=== PATIENT | male | born 1955 | race Caucasian/White ===

== ENCOUNTER → 2016-02-24 | Outpatient (CLI) | payer BC ==
[~2016-02-24] VITALS: Ht 190.5 cm; Wt 107.7 kg
[~2016-02-24] MED LIST: ACETAMINOPHEN325 M1 PO; ADULT LOW DOSE81 MG PO; AMITRIPTYLINE H50 M2 PO; ASPIR 8181 MG PO; ASPIRIN EC325 M1 PO; ASPIRIN EC81 M1 PO; ASPIRIN PO; ASPIRIN325 PO; ATIVAN1 MG PO; ATORVASTATIN CA40 MG PO; AVELOX 400 MG400 M1 PO; BAYER CHEWABLE81 MG PO; BENADRYL ALLERG25 MG PO; BUSPAR15 MG PO; CARVEDILOL12.5 MG PO; CARVEDILOL25 MG PO; CARVEDILOL3.125 MG PO; CARVEDILOL6.25 MG PO; COLACE100 MG PO; COREG 25 MG PO; COREG3.125 MG PO; COZAAR 25 MG TA25 M1 PO; DESYREL100 MG PO; DIAZEPAM 5 MG5 M1 PO; DILAUDID 4 MG TA4 M1 PO; EFFEXOR XR75 MG PO; EFFIENT10 MG PO; EMBEDA ER 30-11 EACH PO; EMBEDA ER 50-21 EACH PO; EMBEDA PO; Effient PO; FENOFIBRATE160 MG PO; FLOMAX0.4 MG PO; GEMFIBROZIL 60600 MG PO; GEMFIBROZIL PO; HUMALOG100 UNIT/1; HUMALOG100 UNIT/1 SQ; HUMALOG100 UNIT/1 SUBQ; HYDROCODON-ACE1 EAC2 PO; HYDROCODON-ACE1 EAC5 PO; HYDROCODON-ACE1 EAC7; HYDROCODON-ACE1 EAC7 PO; IBUPROFEN 600600 M1 PO; IMDUR 30 MG TAB30 M1 PO; IMDUR 60 MG TAB60 M1 PO; IMDUR 60 MG TAB60 MG PO; ISOSORBIDE DINI30 MG PO; ISOSORBIDE MONO10 MG PO; ISOSORBIDE MONO60 M1 PO; LEVEMIR SQ; LEVEMIR SUBQ; LEVOTHYROXIN0.025 MG PO; LEVOTHYROXINE0.2 M1 PO; LEVOXYL300 MCG PO; LEVOXYL75 MCG PO; LEXAPRO 10 MG T10 MG PO; LEXAPRO20 MG PO; LIORESAL 10 MG10 MG PO; LIPITOR40 MG PO; LIPITOR80 MG PO; LISINOPRIL 5 MG PO; LISINOPRIL10 MG PO; LISINOPRIL2.5 MG PO; LISINOPRIL5 MG PO; LOPID600 MG PO; LOPRESSOR 50 MG50 M1 PO; LOPRESSOR25 PO; LOPRESSOR50 PO; LOTRISONE CREAM15 GM; LYRICA 75 MG CA75 MG PO; METHADONE HCL5 MG PO; METOPROLOL SUCC25 M1 PO; METOPROLOL TART25 MG PO; MIDODRINE HCL 55 M1; MIDODRINE HCL 55 M1 PO; MINIPRIN81 MG PO; MONOKET20 MG PO; NEURONTIN 300300 M1 PO; NITROSTAT0.4 MG SUBLING; NORCO 5-325 TA1 EACH PO; NORCO 7.5-3251 EACH PO; NORTRIPTYLINE H50 M3 PO; NOVOLOG100 UNIT/1; NOVOLOG100 UNIT/1 SUBQ; OMEPRAZOLE 20 M20 M1 PO; OMEPRAZOLE20 M2 PO; OPANA ER30 MG PO; PACERONE 200 M200 M1 PO; PEPCID20 MG PO; PERCOCET 10-321 EACH PO; PERCOCET PO; PLAVIX 75 MG TA75 MG PO; PROSCAR 5MG TABL5 MG PO; QUETIAPINE FUM100 MG PO; RANEXA 500 MG500 M1 PO; RANEXA1000 MG PO; RANITIDINE 150150 M1 PO; SEROQUEL 100 M100 M1 PO; SEROQUEL 50 MG50 M1 PO; SEROQUEL 50 MG50 MG PO; SEROQUEL XR150 M1 PO; SIMVASTATIN20 MG PO; SIMVASTATIN40 MG PO; STOOL SOFTENER50 MG PO; SYNTHROID PO; SYNTHROID200 MCG PO; SYNTHROID300 MCG PO; TIROSINT75 MCG PO; TOPROL XL25 MG PO; TRAZODONE 150150 M1 PO; VENLAFAXIN75 MG/1 T1 PO; XARELTO10 MG; XARELTO10 MG PO; XARELTO15 MG PO; XARELTO20 MG PO; ZETIA10 MG PO; ZIAGEN 300 MG300 MG; ZOCOR 20 MG TAB20 M1 PO; [UNRECOGNIZED DRUG - CODE] PO
--- NOTE | ~2016-02-24 | HPC ---
[facility] [address] [place] [address] PAIN MANAGEMENT CONSULTATION Name: JAUN SOLOMON Room #: REG [facility] M..#: [id number] Admission: 02/24/16 Attend Phys: Torres Light MD Discharge: Date of : 53 Report #: [id number] THIS REPORT FOR: //name// CC: Eloy Light DATE OF SERVICE: 02/24/2016 Followup visit for chronic intractable low back pain and neck pain status post Chiari malformation decompression. History of severe coronary artery disease. The patient returns to pain clinic for renewal of his medication. He continues to do reasonably well on his current doses of medication, which is Embeda 30-1.2. He does, however, report that his pain intensity is as high as a 6 many days and that interferes with his activities of daily living and he is unable to function as well. He has significant orthopedic and spinal issues. He has had 2 lumbar surgeries for chronic back pain and has had neck surgery for Chiari malformation with extensive decompression. In addition, he has had shoulder surgeries bilaterally, two separate surgeries on the right. He had an anterior cervical diskectomy and fusion prior to his Chiari surgery. In addition to all of this, he has severe coronary artery disease, suffering four myocardial infarctions. He tells me he has 13 stent. He is at risk for additional cardiac issues and has been avoiding the use of anti-inflammatory drugs other than a single aspirin per day. He is an ideal candidate for the use of opioids in the place of other medications, which probably would have a higher risk for him and Embeda taken once a day with its abuse determinant, seems like an ideal drug. I have agreed to increase his dose from 30 mg a day to 50 mg a day taken once in the morning. He has no significant side effects and the medication has recovered by his insurance. MEDICATIONS: Reviewed include morphine and sulfate in the form of Embeda 30-1.2 once daily, ____, amiodarone, Effient, Proamatine, Proscar, aspirin, omeprazole, Xarelto, ____, Lyrica, lorazepam, Venlafaxine, levothyroxine, insulin and nitroglycerine. PHYSICAL EXAMINATION: GENERAL: He is dressed all in camo. He is pleasant, alert and oriented, shows no signs of overmedication anxiety or depression. VITAL SIGNS: Blood pressure 131/77, heart rate 79 and BMI is 29.7. EXTREMITIES: Range of motion of the cervical spine is limited due to previous [facility] [address] [place] [address] PAIN MANAGEMENT CONSULTATION Name: JAUN SOLOMON Room #: REG [facility].#: [id number] Admission: 02/24/16 Attend Phys: Torres Light MD Discharge: Date of : 53 Report #: [id number] surgery, tenderness around the scar is noted. Mild crepitus is noted in the neck. CHEST: Clear. CARDIAC: Rhythm is regular. MUSCULOSKELETAL: Examination of the low back reveals scar from previous surgery. He has tenderness across his scar and limited range of motion, flexion and extension. He denies leg pain at this time, but does have numbness into the feet bilaterally, possibly secondary to neuropathy. IMPRESSION: 1. Chronic cervical and lumbar pain related to spondylosis, post-laminectomy syndrome. 2. Status post anterior cervical diskectomy and fusion and status post Chiari malformation decompression. 3. Coronary artery disease. 4. Hypertension. 5. Osteoarthritis. 6. Insulin-dependent diabetes. 7. Management of high risk medication. PLAN: Under terms of our opioid agreement, I have agreed to increase his Embeda to 50 mg - 2.0 once daily, and a followup visit scheduled in 3 months. <ELECTRONICALLY SIGNED> By: Torres Light MD 02/25/16 1329 1545 [id number] Torres Light MD /nt
[2016-02-24 10:31] VITALS: BP 131/77
== END | disposition home or self-care (01) ==
LOC: PAIN 02-02 10:50
DX: G89.29 Other chronic pain (principal); M96.1 Postlaminectomy syndrome, not elsewhere classified; M47.812 Spondylosis without myelopathy or radiculopathy, cervical region; I25.10 Atherosclerotic heart disease of native coronary artery without angina pectoris; E11.65 Type 2 diabetes mellitus with hyperglycemia; E78.5 Hyperlipidemia, unspecified; E03.9 Hypothyroidism, unspecified; I10 Essential (primary) hypertension; M19.90 Unspecified osteoarthritis, unspecified site; Z79.4 Long term (current) use of insulin; Z98.890 Other specified postprocedural states

== ENCOUNTER → 2016-06-22 | Outpatient (CLI) | payer BC ==
[~2016-06-22] VITALS: Ht 190.5 cm; Wt 107.5 kg
[~2016-06-22] MED LIST changes: +EMBEDA ER 80-31 EACH PO
--- NOTE | ~2016-06-22 | HPC ---
[facility] [place] [address] [place] [address] PAIN MANAGEMENT CONSULTATION Name: JAUN SOLOMON Room #: REG [facility] M.R.#: [id number] Admission: 06/22/16 Attend Phys: Torres Light MD Discharge: Date of : 53 Report #: [id number] THIS REPORT FOR: //name// CC: JUAN DIEGO Light DATE OF SERVICE: 06/22/2016 Followup visit for chronic pain. The patient returns to pain clinic today with complaints of pain in his low back and neck, status post Chiari malformation. He is currently on Embeda 50 mg daily to cover by his Medicaid. He does not feel that the dose is adequate and I have after some discussion agreed to increase his dose to Embeda 80/3.2. This is an abuse formulation and he is under the CDC guideline. He has been opioid tolerant for some years. Today, he reports that his pain is an 8/10. He has pain every day, mostly in his neck, shoulders and back, radiates down into his legs. Describes numbness, tingling and aching sensation into his arms. Comorbidities include severe coronary artery disease. He has history of hypertension, palpitation, shortness of breath. He is noted also loss of appetite, change in bowel movement with some frequent diarrhea occasionally, with some constipation intermittently. He has a history of kidney stones as well. PHYSICAL EXAMINATION: GENERAL: He is pleasant, alert and oriented. VITAL SIGNS: Blood pressure is 128/65, heart rate 73, BMI is 29.6. MUSCULOSKELETAL: He has limited range of motion of the cervical spine and tenderness across the occiput. He has pain that radiates down into the trapezius. He has difficulty with all range of motion of his neck. Low back is also tender and he has positive straight leg raising suggesting some radicular symptoms into each leg. IMPRESSION: 1. Chronic low back pain with radiculopathy. 2. Chronic cervicalgia status post laminectomy for Chiari malformation. 3. Severe coronary artery disease. 4. Hypertension. 5. Osteoarthritis. 6. Insulin-dependent diabetes. 7. Management of high risk medication. [facility] [address] [place] [address] PAIN MANAGEMENT CONSULTATION Name: JAUN SOLOMON [id number] Admission: 06/22/16 Attend Phys: Torres Light MD Discharge: Date of : 53 Report #: [id number] PLAN: I have renewed Embeda 80 mg, this is a 60% increase in his daily pain medication, that should be helpful. Plan to follow up in the pain clinic for him in 3 months. By: [id number] Torres Light MD /nt
[2016-06-22 10:17] VITALS: BP 128/65
== END | disposition home or self-care (01) ==
LOC: PAIN 07:25
DX: M54.16 Radiculopathy, lumbar region (principal); M54.2 Cervicalgia; G89.29 Other chronic pain; E11.65 Type 2 diabetes mellitus with hyperglycemia; I10 Essential (primary) hypertension; I25.10 Atherosclerotic heart disease of native coronary artery without angina pectoris; M19.90 Unspecified osteoarthritis, unspecified site; F11.20 Opioid dependence, uncomplicated; E11.69 Type 2 diabetes mellitus with other specified complication; E03.9 Hypothyroidism, unspecified; I73.9 Peripheral vascular disease, unspecified; E78.5 Hyperlipidemia, unspecified; Z79.4 Long term (current) use of insulin

== ENCOUNTER → 2016-09-21 | Outpatient (CLI) | payer BC ==
[~2016-09-21] VITALS: Ht 190.5 cm; Wt 98.4 kg
[~2016-09-21] MED LIST changes: +TRAZODONE HCL100 MG PO
--- NOTE | ~2016-09-21 | HPC ---
[facility] [place] [address] PAIN MANAGEMENT CONSULTATION Name: JAUN SOLOMON Room #: REG [facility].#: [id number] Admission: 09/21/16 Attend Phys: Torres Light MD Discharge: Date of : 53 Report #: [id number] THIS REPORT FOR: //name// CC: Eloy Light DATE OF SERVICE: 09/21/2016 Followup visit for chronic low back pain and radiculopathy as well as chronic cervicalgia. The patient is in the pain clinic today in followup. I have provided him with Embeda under terms of our opioid agreement. He also complains of neuropathic pain and today we discussed the possibility of additional neuropathic pain medication. He has never had a trial of Lyrica. His pain score is 6/10. He describes sharp, aching pain, numbness and tingling into his neck and shoulders, low back, left leg, left arm, both hands, bilateral feet. Recently went to the dentist, had some teeth pulled and the dentist provided him with hydrocodone 7.5/325, 24 tablets. He did notify our clinic and asked if he could utilize those. I have agreed to allow him to use those medications for this breakthrough episode and his notification in the clinic is consistent with our agreement. He has a number of other issues including hypertension, insulin-dependent diabetes, coronary artery disease. He follows with his primary care physician closely for these issues. PHYSICAL EXAMINATION: The patient is pleasant, alert and oriented, without signs of overmedication, depression or anxiety. Pain score is a 6 today. He has mild tenderness in his neck with decreased range of motion. He has weakness in his upper extremities. Sensation is diminished in both arms. He has pain across his low back and positive straight leg raising, which is consistent with radiculopathy. He has decreased sensation with burning sensations in his feet, which may be related to his diabetes with neuropathy. IMPRESSION: 1. Chronic low back pain with radiculopathy. 2. Chronic cervicalgia status post laminectomy . 3. Insulin-dependent diabetes, now with some evidence of diabetic neuropathy. 4. Osteoarthritis. 5. Hypertension. 6. Coronary artery disease. 7. Management of high risk medication. [facility] [address] [place] [address] PAIN MANAGEMENT CONSULTATION Name: JAUN SOLOMON Room #: REG [facility].#: [id number] Admission: 09/21/16 Attend Phys: Torres Light MD Discharge: Date of : 53 Report #: [id number] PLAN: 1. I renewed his Embeda 80 mg per day. This is a once a day dose. 2. Begin Lyrica 75 mg 1-2 tablets b.i.d. He will titrate his dose as instructed today and given him written instructions. Followup visit planned in 3 months. By: [id number] Torres Light MD /nt
[2016-09-21 10:49] VITALS: BP 94/63
== END | disposition home or self-care (01) ==
LOC: PAIN 07:18
DX: M54.10 Radiculopathy, site unspecified (principal); I10 Essential (primary) hypertension; E11.9 Type 2 diabetes mellitus without complications; I25.10 Atherosclerotic heart disease of native coronary artery without angina pectoris; M54.2 Cervicalgia; M19.90 Unspecified osteoarthritis, unspecified site; Z79.899 Other long term (current) drug therapy

== ENCOUNTER → 2017-04-09 | Outpatient (CLI) | payer BC ==
[~2017-04-09] VITALS: Ht 190.5 cm; Wt 108.0 kg
[~2017-04-09] MED LIST changes: +AMIODARONE HCL100 MG PO; +BUPROPION XL150 MG PO; +DESVENLAFAXINE50 M2 PO; +JARDIANCE10 MG PO; +KLOR-CON M2020 MEQ PO; +LANTUS SUBQ; +LASIX 20 MG TAB20 MG PO; +METFORMIN HCL500 MG PO; +ONDANSETRON HCL4 M2 PO; +PLAVIX 75 MG TA75 M1 PO; +PROTONIX40 M2 PO; +RANEXA500 MG PO; +REGLAN 10 MG TA10 MG PO; +SPIRONOLACTONE25 M1 PO
--- NOTE | ~2017-04-09 | HPC ---
[facility] [address] [place] [address] PAIN MANAGEMENT CONSULTATION Name: JAUN SOLOMON Room #: REG [facility] M..#: [id number] Admission: 04/09/17 Attend Phys: Torres Light MD Discharge: Date of : 53 Report #: [id number] THIS REPORT FOR: //name// CC: Eloy Light DATE OF SERVICE: 04/09/2017 Followup visit for management of Embeda, the opioid with deterrent properties. The patient has had multiple spine surgeries and also suffers from neuropathy. He is here today for renewal of his medications. I provided him with Embeda 80 mg once daily and Lyrica 75 mg 1-2 tablets b.i.d. for neuropathic pain. He presents today wearing gloves. He says it helps his hands. He wears them at night as well. Although he has been disabled for a number of years, he still seems fairly active. He is able to handle his own day-to-day activities, drives a car. 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 He is 61 years of age. We will consider him retired. He says with increased activities, his pain becomes more severe. He is carrying a hand gun today. It should be noted that he sees several physicians and is on medication for depression, anxiety. He seems well and stable today with no evidence of concern, however, it is a bit disconcerting in a physician's office when examining the patient, you discover concealed weapon. MEDICATIONS: Desvenlafaxine 50 mg daily, Wellbutrin 150 mg XL daily, Lyrica 75 mg b.i.d., Embeda 80 mg once daily, trazodone 100 mg at bedtime. Lorazepam chronically used for anxiety. He is also on levothyroxine, nitroglycerin, aspirin, Xarelto, omeprazole, Proscar, ProAmatine, atorvastatin, carvedilol, Lasix, insulin, metformin, ondansetron, Effient, Tamsulosin. PHYSICAL EXAMINATION: The patient is pleasant, alert and oriented, does not appear depressed, anxious or unstable. He is able to easily move from sitting to standing position. He does need a cane or walker and does not have a fall risk. His chest is clear. He has tenderness across the abdomen. Spine reveals scars in the lumbosacral region. He also has a scar in his neck from previous Chiari malformation surgery. Range of motion of both the lumbar and cervical spine remains limited. Sensation in the lower extremities is diminished. He is wearing gloves in the upper extremities. The fingers have been cut off. IMPRESSION: 1. Chronic intractable pain with low back issues and radiculopathy related to post-laminectomy syndrome. [facility] [address] [place] [address] PAIN MANAGEMENT CONSULTATION Name: JAUN SOLOMON Room #: REG [facility]#: [id number] Admission: 04/09/17 Attend Phys: Torres Light MD Discharge: Date of : 53 Report #: [id number] 2. Cervicalgia with limited range of motion of the cervical spine, status post extensive laminectomy for treatment of Chiari malformation. 3. Insulin-dependent diabetes. 4. History of coronary artery disease, congestive heart failure. 5. Osteoarthritis involving hips and knees. 6. Hypertension. 7. Management of high risk medication. RECOMMENDATIONS: I have renewed all of his medications under terms of the CDC guidelines, reviewed his opioid contract with him. He will continue on Embeda at 80 mg. I have also renewed Lyrica for him 75 mg as a co-analgesic to try and limit his use of narcotics. We will safeguard all medications even these that are abuse deterrent. <ELECTRONICALLY SIGNED> By: Torres Light MD 04/18/17 1640 1521 [id number] Torres Light MD /nt
[2017-04-09 13:02] VITALS: BP 108/62
== END ==
LOC: PAIN 07:21
DX: G89.29 Other chronic pain (principal); M54.16 Radiculopathy, lumbar region; M96.1 Postlaminectomy syndrome, not elsewhere classified; M54.2 Cervicalgia; E11.9 Type 2 diabetes mellitus without complications; I25.10 Atherosclerotic heart disease of native coronary artery without angina pectoris; I11.0 Hypertensive heart disease with heart failure; I50.9 Heart failure, unspecified; M16.0 Bilateral primary osteoarthritis of hip; M17.0 Bilateral primary osteoarthritis of knee; Z79.899 Other long term (current) drug therapy

== ENCOUNTER 2017-12-01 21:20 | Inpatient (IN) | payer BC ==
[~2017-12-01] VITALS: Ht 190.5 cm; Wt 93.4 kg
--- NOTE | ~2017-12-01 | CATHLAB ---
[facility] [address] [place] [address] INVASIVE PROCEDURE REPORT Name: JAUN SOLOMON Room #: 207-P ADM IN M.R.#: [id number] Admission: 12/01/17 Attend Phys: David Casas Discharge: Date of : 53 Date of Service: 12/03/17 1731 Report #: [id number] THIS REPORT FOR: //name// APPROVED REPORT Study performed: 12/03/2017 14:28:49 Patient Details Patient Status: In-Patient Room #: The patient is a 62 year-old male Event Personnel Andres Swartz Mower Mechanic, Marie North RN RN, Natalia Terrazas [place], Christine RTUyen Monitor Procedures Performed Art Access - R femoral artery* Hemostasis w/ Angioseal Left Heart Cath w/or w/o Coronaries [id number] [facility] [id number] Initial Mod Sed Same Phys/QHP [facility] [id number] Mod Sed Same Phys/QHP Ea [id number] Indication Chest pain Risk Factors Hypercholesterolemia, Coronary Artery Disease, Diabetes Previous Procedures/Diagnoses Previous PCI, Previous AL Procedure Narrative The patient was brought electively to the Cardiac Catheterization Laboratory and was prepped and draped in a sterile manner. The Right Groin^ was infiltrated with 1% Lidocaine subcutaneous anesthesia. A PINNACLE 6FR Sheath #[id number] sheath was inserted into the RFA^. Coronary angiography was performed using coronary diagnostic catheters. The right coronary system was accessed and visualized with a JR 4 catheter. The left coronary system was accessed and visualized with a JL 4 catheter. The left ventricle was accessed and visualized with a Pigtail catheter. Left ventricular/Aortic Valve gradient assessed via catheter pullback. Left ventriculogram was performed in GUARDADO projection. Pre-demployment femoral angiogram was performed . Closure device was deployed with a 6 Fr Angioseal. The patient tolerated the procedure well and there were no complications associated with the procedure. There was no hematoma. [facility] [address] [place] [address] INVASIVE PROCEDURE REPORT Name: JAUN SOLOMON Room #: 207-P ADM IN M.R.#: [id number] Admission: 12/01/17 Attend Phys: David Casas Discharge: Date of : 53 Date of Service: 12/03/17 1731 Report #: [id number] Intraoperative Conscious Sedation Sedation start time: 14:54 Case end Time: 15:30 Fentanyl 50 mcg Versed 4 mg Fluoro Time: 1.27 minutes Dose: DAP 4113.00 cGycm2 412 mGy Contrast Type and Amount: Omnipaque 100 ml Coronary Angiography The patient's coronary anatomy is co- dominant. Diagnostic Cath Left Main 0% stenosis LAD proximal stent without restenosis Diagonal 1 proximal stent with 70% ostial stent restenosis Circumflex mid stent with 40% restenosis Right Coronary long area of stent extending from the ostium to beyond the acute margin. Stent appeared chronicall occluded distally with bridging collateral from the left coronary Ramus 0% stenosis Left Ventriculography The left ventricular ejection fraction is estimated to be 25-30%. Left ventricular wall motion abnormalities are present. There is 1+ mitral insufficiency. inferior akinesis noted Hemodynamics The aortic pressure is 121/67 mmHg with a mean of 91 mmHg. The left ventricular pressure is 126/40 mmHg with a mean of mmHg. The left ventricular end diastolic pressure is 40 mmHg. Pullback from the left ventricle to the aorta revealed no gradient across the aortic valve. Conclusion 1. no restenosis noted of stent in the proximal lad, although a 70% stenosis noted in the stent in the ostium of the diagonal 2. 40% restenosis noted of a stent in the proximal circumflex 3. chronic occlusion of long area of stent in the rca 4. severe LV dysfunction with ejection fraction of 25-30% Recommendations [facility] [address] [place] [address] INVASIVE PROCEDURE REPORT Name: JAUN SOLOMON Room #: 207-P [facility] M.R.#: [id number] Admission: 12/01/17 Attend Phys: David Casas Discharge: Date of : 53 Date of Service: 12/03/17 1731 Report #: [id number] 1. medical therapy 2. consider ICD after leg infection resolved <ELECTRONICALLY SIGNED> By: Andres Swartz MD, FACC 12/03/17 173 173 30 Andres Swartz MD, FACC /INF
--- NOTE | ~2017-12-01 | HC ---
[facility] [place] [address] CONSULTATION Name: JAUN SOLOMON Room #: 207-P [facility] IN M.R.#: [id number] Admission: 12/01/17 Attend Phys: Wojciech Lawler MD Discharge: Date of : 53 Report #: [id number] THIS REPORT FOR: //name// CC: Eloy Lawler DATE OF SERVICE: 12/03/2017 CHIEF COMPLAINT: Surgical wound, left below-knee amputation. HISTORY OF PRESENT ILLNESS: This is a 62-year-old male patient who underwent cardiac catheterization today by Dr. Swartz. He was noted to have chest pain, has underlying diabetes. He has undergone recent below-knee amputation and revision by Dr. Wiley Kenney involving his left leg. The area has been slow to heal. He was scheduled to have sutures removed today; however, he is here in the hospital. PAST MEDICAL HISTORY: Positive for history of diabetes mellitus, anemia, chest pain, orthostatic hypotension, coronary artery disease, cardiomyopathy, hyperlipidemia, history of nonsustained ventricular tachycardia. ALLERGIES: SULFA and LISINOPRIL. MEDICATIONS: Include Synthroid, venlafaxine, Ativan, Nitrostat, acetaminophen, Xarelto, omeprazole, Proscar, ProAmatine, Lipitor, Coreg, trazodone, amiodarone, bupropion, desvenlafaxine, Lasix, Lantus, Humalog, Glucophage, Zofran, Effient, Flomax. SOCIAL HISTORY: Negative for tobacco use. Negative for drug use. Positive for occasional alcohol use. FAMILY HISTORY: Noncontributory. REVIEW OF SYSTEMS: CONSTITUTIONAL: No fever, chills, weight loss. NEUROLOGIC: The patient denies focal weakness, numbness or tingling. EYES: The patient denies visual change, redness or drainage. ENT: The patient denies earache, nasal drainage or sore throat. CARDIOVASCULAR: Did have a history of chest pain. Denies palpitations, diaphoresis. PULMONARY: The patient denies cough or shortness of breath. GASTROINTESTINAL: The patient denies nausea, vomiting, diarrhea or abdominal pain. ORTHOPEDIC: The patient denies pain or swelling, but has recent left BKA with an area that has been slow to heal. [address] [address] CONSULTATION Name: JAUN SOLOMON Room #: 207-P ADM IN M.R.#: [id number] Admission: 12/01/17 Attend Phys: Wojciech Lawler MD Discharge: Date of : 53 Report #: [id number] Other systems in a 14-point review of systems are negative. PHYSICAL EXAMINATION: VITAL SIGNS: At this time include temperature 36.7, pulse 71, respiratory rate 2, blood pressure 117/65. GENERAL: This is a chronically ill-appearing male patient who appears to be in minimal distress. HEENT: Head is normocephalic. Nose and throat clear. NECK: Supple. LUNGS: Clear. HEART: Regular rate and rhythm. ABDOMEN: Soft. Bowel sounds present. EXTREMITIES: Examination of the lower extremities demonstrate left below-knee amputation site appears to be healing well. There are some sutures in place. There is no separation, tunneling or undermining. A small area remains that is pretty healthy, clean and granulating. CLINICAL IMPRESSION: 1. Surgical wound, left below-knee amputation site following revision of previous complication from below-knee amputation. 2. Diabetes mellitus, uncontrolled. 3. Chest pain with possible history of coronary artery disease. RECOMMENDATIONS: At this point in time, we will recommend silver alginate to the areas that are open. We will recommend removing his sutures tomorrow. He will have continued followup with Dr. Kenney. We would be happy to see him for ongoing wound care if desired at any point. <ELECTRONICALLY SIGNED> By: Gustavo Pinzon MD 12/04/17 1252 1852 [id number] Gustavo Pinzon MD /nt
--- NOTE | ~2017-12-01 | HC ---
[facility] [place] [address] CONSULTATION Name: JAUN SOLOMON Room #: 207-P ADM IN M.R.#: [id number] Admission: 12/01/17 Attend Phys: Wojciech Lawler MD Discharge: Date of : 53 Report #: [id number] THIS REPORT FOR: //name// CC: Lobo Bustamante MD DATE OF SERVICE: 12/02/2017 HISTORY OF PRESENT ILLNESS: The patient is a 62-year-old white male, diabetic, who I was asked to see in the hospital today after he complained of chest pain. The patient has an extensive past medical history. The history is obtained from the patient as well as his who is present. He has a long history of diabetes. His first coronary stent was placed in 2004 when he was deer hunting down in [facility]. The stent was placed when he was in [place], [place] at [facility]. He has had 13 stents since that time. He actually had a coronary stent placed at one time in [place], [place]. The patient had a procedure performed here at [facility] in 11/[address] Poe. At that time, he apparently was having an acute inferior STEMI. The procedure was performed from the right femoral artery. The LAD had a 90% proximal stenosis with a stent. The first diagonal artery had a stent with an 80% narrowing in the stent of diagonal artery. There was a stent in the circumflex that had only mild restenosis. The right coronary artery had multiple stents and it was completely occluded distally. Left ventriculogram revealed an ejection fraction of 40%. He then underwent angioplasty, was given Angiomax. The right coronary artery was redilated with a balloon. Additional stents were not placed since there was already multiple stents in the right coronary artery. It was recommended that the patient be considered for coronary bypass surgery since there was a significant stenosis also in the LAD. Obviously, the patient never had a bypass surgery. The patient states that he has actually done fairly well since that time, has not had a stress test for years. He actually had been followed by my partner, Dr. Gordon, who recently retired. He last saw Dr. Gordon about 6 months ago. Recently, he fractured his left ankle. He developed a wound that would not heal. He required a surgery on the ankle. He then developed an infection and had debridement. Eventually, Dr. Kenney performed amputation of the foot at [facility]. He just had some debridement done a few weeks ago at [facility]. He has a PICC line in his left arm and is receiving IV antibiotics as an outpatient. He notes for the past few weeks, he has been having intermittent chest tightness. It occurs with any activity, makes him nauseated, short of breath. He has taken nitroglycerin that seemed to help. It is not related to food or meals. He has had no bleeding, trauma to his chest. Denied any cough. He denies exertional dyspnea, palpitations, syncope. Last night, he had an episode of chest tightness that would not go away, took up to 5 nitroglycerin. He called EMS and brought here to [facility] and admitted. [facility] [address] [place] [address] CONSULTATION Name: JAUN SOLOMON Room #: 207-P ADM IN M.R.#: [id number] Admission: 12/01/17 Attend Phys: Wojciech Lawler MD Discharge: Date of : 53 Report #: [id number] PAST MEDICAL HISTORY: Significant for shoulder surgery, hand surgery, cholecystectomy, 2 back surgeries, diabetes, hypertension, hyperlipidemia, Graves' disease. He has had a history of a pulmonary embolus and has been on Xarelto. OTHER MEDICATIONS: Consist of carvedilol, amiodarone, Lipitor, Plavix, Giardia, Synthroid, metformin, and midodrine. ALLERGIES: HE HAS ALLERGY TO SULFA DRUGS AND LISINOPRIL. FAMILY HISTORY: Positive for heart disease. SOCIAL HISTORY: He is . He and his live in [place]. 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 No smoking or alcohol use. REVIEW OF SYSTEMS: He has had no history of stroke, asthma, peptic ulcer disease, liver disease. He has had a kidney stone. No cancer, no psychiatric illness. PHYSICAL EXAMINATION: GENERAL: Reveals a middle-aged male lying in bed, he appeared in no acute distress. VITAL SIGNS: He had a blood pressure of 120/70, pulse 70, he was afebrile. HEENT: He was anicteric. Conjunctivae pink. Mucous membranes moist. NECK: Veins do not appear distended. No carotid bruits. Neck is supple. CHEST: Clear to auscultation. CARDIOVASCULAR: Regular rate and rhythm. No significant murmur. ABDOMEN: Soft, nontender. EXTREMITIES: Right lower extremity had no edema. SKIN: Cool and dry. Right dorsalis pedis pulses 2+. PSYCHIATRIC: Mood is appropriate. NEUROLOGIC: Nonfocal. RADIOLOGICAL DATA: His ECG showed sinus rhythm, evidence of previous inferior infarction, PVCs, nonspecific ST and T-wave changes. His workup, he had an echocardiogram done in 2016 that showed left ventricular hypertrophy, inferior hypokinesis. Aortic valve showed no significant stenosis. His chest x-ray last night showed normal heart size, a PICC line in place, clear lung hillman. Previous CT scan of the head without contrast in 2016 showed no hemorrhage. LABORATORY DATA: Sodium 139, potassium 3.5, BUN 14, creatinine 1.0, glucose 169. Liver function studies were normal. Albumin is only 2.8. Troponin 0.06. Previous cholesterol is 277, triglyceride 584, HDL 30, LDL could not be calculated. His white blood cell count 5.4, hemoglobin 7.1, hematocrit 26.6. MCV is 68. [facility] [place] [address] CONSULTATION Name: JAUN SOLOMON Room #: 207-P ADM IN ..#: [id number] Admission: 12/01/17 Attend Phys: Wojciech Lawler MD Discharge: Date of : 53 Report #: [id number] IMPRESSION AND RECOMMENDATIONS: 1. Unstable angina. Recommend repeat cardiac catheterization. 2. Severe anemia. No history of bleeding. 3. Hypertension. The patient has been on beta gigi. 4. History of hypotension. The patient is on midodrine. 5. History of amiodarone use. Reason unclear. 6. History of pulmonary embolus. The patient is on Xarelto. I would hold at this time. 7. Graves' disease. 8. Recent amputation of the left foot. <ELECTRONICALLY SIGNED> By: Andres Swartz MD, [facility] 12/03/17 1655 1448 2235 Andres Swartz MD, FACC /nt
--- NOTE | ~2017-12-01 | EKG ---
[address] [address] ELECTROCARDIOGRAM REPORT Name: JAUN SOLOMON Room #: 207-P ADM IN M.R.#: [id number] Admission: 12/01/17 Attend Phys: Lboo Valverde MD Discharge: Date of : 53 Report #: [id number] THIS REPORT FOR: //name// [facility] ED Test Date: 2017-12-01 Test Time: 21:23:55 Pat Name: JAUN SOLOMON Department: Room: 207 Gender: M Traveling Electrician: JLAMBKALEY : 1955 Requested By: Jorge Arauz Order Number: [id number] MD: Brad Mera Measurements Intervals [place] Rate: 92 P: 47 MS: 179 QRS: 66 QRSD: 117 T: -67 QT: 399 QTc: 494 Interpretive Statements Sinus rhythm Multiple ventricular premature complexes Probable left atrial enlargement Nonspecific intraventricular conduction delay Inferior infarct, age indeterminate Lateral leads are also involved Compared to ECG 12/13/2015 07:14:08 Ventricular premature complex(es) now present Intraventricular conduction delay now present Myocardial infarct finding now present Electronically Signed On 12-02-2017 16:56:50 CDT by Brad Mera [email or web address] <ELECTRONICALLY SIGNED> By: Brad Mera MD 12/02/17 1656 22 22 Brad Mera MD /EPI
[~2017-12-01 21:20] MED LIST changes: -JARDIANCE10 MG PO; -KLOR-CON M2020 MEQ PO; -PLAVIX 75 MG TA75 M1 PO; -PROTONIX40 M2 PO; -RANEXA500 MG PO; -REGLAN 10 MG TA10 MG PO; -SPIRONOLACTONE25 M1 PO
[2017-12-01 21:22] VITALS: BP 143/76
[2017-12-01 21:40] LABS: BASOPHILS 0.7 % (0.0-2.0); EOSINOPHILS 5.1 % (0.0-3.0); HEMATOCRIT 26.6 % (42.0-52.0); HEMOGLOBIN 8.6 gm/dL (14.0-18.0); LYMPHOCYTES 16.1 % (24.0-44.0); MCH 21.9 pg (26.0-34.0); MCHC 32.4 g/dL (28.0-37.0); MCV 67.5 fL (80.0-100.0); MONOCYTES 9.6 % (1.0-8.0); PLATELET COUNT 398 thou/uL (150-400); POLYS 68.5 % (36.0-66.0); RBC 3.94 mil/uL (4.50-6.00); RDW 21.7 % (10.5-14.5); WBC 7.3 thou/uL (4.0-11.0)
[2017-12-01 21:48] LABS: ANION GAP 8 mmol/L (7-16); BUN 14 mg/dL (7-18); CALCIUM 7.8 mg/dL (8.5-10.1); CHLORIDE 107 mmol/L (98-107); CO2 24 mmol/L (21-32); GLUCOSE 169 mg/dL (74-106); POTASSIUM 3.5 mmol/L (3.5-5.1); SODIUM 139 mmol/L (136-145)
[2017-12-01 21:57] LABS: ALBUMIN 2.8 g/dL (3.4-5.0); SGOT 16 U/L (15-37); SGPT 19 U/L (30-65); TOTAL BILIRUBIN 0.3 mg/dL (<0.1-1.0); TOTAL PROTEIN 5.9 g/dL (6.4-8.2); TROPONIN-I <0.06 ng/mL (<0.06)
[2017-12-01 22:18] VITALS: BP 145/72
[2017-12-01 22:36] LABS: ANISOCYTOSIS 2+; HYPOCHROMASIA 2+; MICROCYTES 2+; SCHISTOCYTES OCCASIONAL
[2017-12-01 22:40] VITALS: BP 152/71
[2017-12-01 23:48] VITALS: BP 139/75
[2017-12-02 04:31] LABS: HEMATOCRIT 23.1 % (42.0-52.0); HEMOGLOBIN 7.1 gm/dL (14.0-18.0); MCH 20.9 pg (26.0-34.0); MCHC 30.6 g/dL (28.0-37.0); MCV 68.4 fL (80.0-100.0); RBC 3.37 mil/uL (4.50-6.00); RDW 21.8 % (10.5-14.5); WBC 5.4 thou/uL (4.0-11.0)
[2017-12-02 05:19] VITALS: BP 113/57
[2017-12-02 07:40] VITALS: BP 129/70
[2017-12-02] MEDS ORDERED: JARDIANCE10 MG PO (08:50)
[2017-12-02] MEDS ORDERED: PLAVIX 75 MG TA75 M1 PO (08:51)
[2017-12-02] MEDS ORDERED: REGLAN 10 MG TA10 MG PO (08:52)
[2017-12-02] MEDS ORDERED: PROTONIX40 M2 PO (08:54)
[2017-12-02 11:50] VITALS: BP 110/59
[2017-12-02 15:50] VITALS: BP 130/70
[2017-12-02 19:41] VITALS: BP 124/69
[2017-12-03] VITALS (13 sets, daily range): BP systolic 109–138; BP diastolic 62–105
[2017-12-03 03:39] LABS: HEMATOCRIT 23.3 % (42.0-52.0); HEMOGLOBIN 7.2 gm/dL (14.0-18.0)
[2017-12-03 03:52] LABS: % SATURATION 6 % (20-39); IRON 16 ug/dL (65-175); TIBC 280 ug/dL (250-450)
[2017-12-03 03:55] LABS: CHOLESTEROL 111 mg/dL (<200); HDL CHOLESTEROL 34 mg/dL (>40); LDL CHOLESTEROL 59 mg/dL (<100); SERUM ASSESSMENT Clear; TC:HDL 3.3 Ratio (Not establshd); TRIGLYCERIDE 91 mg/dL (<150); VLDL 18 mg/dL (<40)
[2017-12-03 04:53] LABS: TSH 0.585 uIU/mL (0.358-3.740)
[2017-12-04 04:07] LABS: ABSOLUTE NEUTROPHILS 4.1 thou/uL (1.4-8.2); BASOPHILS 2.3 % (0.0-2.0); HEMATOCRIT 26.9 % (42.0-52.0); HEMOGLOBIN 8.4 gm/dL (14.0-18.0); LYMPHOCYTES 17.2 % (24.0-44.0); MCH 21.1 pg (26.0-34.0); MCHC 31.2 g/dL (28.0-37.0); MCV 67.5 fL (80.0-100.0); MONOCYTES 9.1 % (1.0-8.0); POLYS 66.4 % (36.0-66.0); RBC 3.99 mil/uL (4.50-6.00); RDW 20.8 % (10.5-14.5); WBC 6.2 thou/uL (4.0-11.0)
[2017-12-04 04:08] LABS: CALCIUM 9.1 mg/dL (8.5-10.1); CREATININE 0.9 mg/dL (0.7-1.3); POTASSIUM 4.2 mmol/L (3.5-5.1)
[2017-12-04 04:12] LABS: PLATELET COUNT 370 thou/uL (150-400)
[2017-12-04 04:44] VITALS: BP 140/72
[2017-12-04 05:29] LABS: ANISOCYTOSIS 1+; HYPOCHROMASIA 1+; POLYCHROMASIA SLIGHT
[2017-12-04 05:30] LABS: BURR CELLS OCCASIONAL; MICROCYTES 1+
[2017-12-04 07:45] VITALS: BP 149/84
[2017-12-04 10:04] VITALS: BP 149/84
[2017-12-04] MEDS ORDERED: RANEXA500 MG PO (11:34)
[2017-12-04] MEDS ORDERED: KLOR-CON M2020 MEQ PO (11:34)
[2017-12-04] MEDS ORDERED: SPIRONOLACTONE25 M1 PO (11:34)
[2017-12-04 12:05] VITALS: BP 134/74
[2017-12-04 14:12] VITALS: BP 149/84
== END 2017-12-04 15:04 | disposition home health service (06) | DRG 286 ==
LOC: ER 21:20 → 2N 22:20 → EROBS 22:20 → 2N 22:54 → ENTRNSPT 12-04 14:39 → EDTRNSPTSTS 12-04 14:42 → 2N 12-04 15:04
PROVIDERS: Emergency Medicine; Family Medicine; Internal Medicine Cardiovascular Disease; Nurse Practitioner
PROC: B2151ZZ Fluoroscopy of Left Heart using Low Osmolar Contrast (ICD-10-PCS; principal; 2017-12-03)
PROC: B2111ZZ Fluoroscopy of Multiple Coronary Arteries using Low Osmolar Contrast (ICD-10-PCS; principal; 2017-12-03)
PROC: 4A023N7 Measurement of Cardiac Sampling and Pressure, Left Heart, Percutaneous Approach (ICD-10-PCS; principal; 2017-12-03)
DX: I25.110 Atherosclerotic heart disease of native coronary artery with unstable angina pectoris (principal); I50.33 Acute on chronic diastolic (congestive) heart failure; E43 Unspecified severe protein-calorie malnutrition; I50.22 Chronic systolic (congestive) heart failure; T82.855A Stenosis of coronary artery stent, initial encounter; I42.9 Cardiomyopathy, unspecified; E78.5 Hyperlipidemia, unspecified; K21.9 Gastro-esophageal reflux disease without esophagitis; F41.9 Anxiety disorder, unspecified; F32.9 Major depressive disorder, single episode, unspecified; E11.65 Type 2 diabetes mellitus with hyperglycemia; G89.29 Other chronic pain; M54.9 Dorsalgia, unspecified; M19.90 Unspecified osteoarthritis, unspecified site; E05.00 Thyrotoxicosis with diffuse goiter without thyrotoxic crisis or storm; D50.9 Iron deficiency anemia, unspecified; Y83.8 Other surgical procedures as the cause of abnormal reaction of the patient, or of later complication, without mention of misadventure at the time of the procedure; Y92.89 Other specified places as the place of occurrence of the external cause; I25.2 Old myocardial infarction; Z95.5 Presence of coronary angioplasty implant and graft; Z86.711 Personal history of pulmonary embolism; Z89.512 Acquired absence of left leg below knee; Z86.73 Personal history of transient ischemic attack (TIA), and cerebral infarction without residual deficits; Z90.49 Acquired absence of other specified parts of digestive tract; Z87.442 Personal history of urinary calculi; Z98.1 Arthrodesis status; Z79.4 Long term (current) use of insulin; Z79.01 Long term (current) use of anticoagulants; Z79.899 Other long term (current) drug therapy; Z88.2 Allergy status to sulfonamides; Z88.8 Allergy status to other drugs, medicaments and biological substances; Z82.49 Family history of ischemic heart disease and other diseases of the circulatory system
CPT/HCPCS: 10081

== ENCOUNTER 2018-01-30 15:48 | Inpatient (IN) | payer BC ==
[~2018-01-30] VITALS: Ht 190.5 cm; Wt 102.6 kg
--- NOTE | ~2018-01-30 | 2DMMODE ---
[facility] [address] [place] [address] 2 D/M-MODE ECHOCARDIOGRAM Name: JUANITOJAUN MIRANDA Room #: 217-P [facility] IN M.R.#: [id number] Admission: 01/30/18 Attend Phys: Serge Alicia, Discharge: Date of : 53 Date of Service: 01/31/18 1054 Report #: [id number] THIS REPORT FOR: //name// APPROVED REPORT Study performed: 01/31/2018 09:55:16 EXAM: Comprehensive 2D, Doppler, and color-flow Echocardiogram Patient Location: Echo lab Room #: [facility] Status: routine BSA: 2.27 HR: 71 bpm BP: 90/46 mmHg Rhythm: NSR Other Information Study Quality: Adequate Indications Congestive Heart Failure Diabetes CAD Chest Pain Hypertension/HDD 2D Dimensions RVDd: 41.47 mm IVSd: 16.45 (7-11mm) LVOT Diam: 21.16 (18-24mm) LVDd: 57.48 mm PWd: 13.53 (7-11mm) Ascending Ao: 32.69 (22-36mm) LVDs: 46.18 (25-40mm) Aortic Root: 31.80 mm IVC: 21.00 mm Volumes Left Atrial Volume (Systole) Single Plane 4CH: 75.16 mL Single Plane 2CH: 78.33 mL LA ESV Index: 37.00 mL/m2 Aortic Valve AoV Peak Yusef.: 0.99 m/s AO Peak Gr.: 3.95 mmHg LVOT Max P.93 mmHg LVOT Max V: 0.86 m/s WILFREDO Vmax: 3.03 cm2 [facility] [address] [place] [address] 2 D/M-MODE ECHOCARDIOGRAM Name: JAUN SOLOMON Room #: 217-P [facility] IN ..#: [id number] Admission: 01/30/18 Attend Phys: Serge Alicia, Discharge: Date of : 53 Date of Service: 01/31/18 1054 Report #: [id number] Mitral Valve E/A Ratio: 1.2 MV Decel. Time: 183.62 ms MV E Max Yusef.: 0.85 m/s MV A Yusef.: 0.70 m/s MV PHT: 53.25 ms IVRT: 133.79 ms Pulmonary Valve PV Peak Yusef.: 0.77 m/s PV Peak Gr.: 2.37 mmHg Pulmonary Vein P Vein S: 0.41 m/s P Vein A: 0.21 m/s P Vein D: 0.50 m/s P Vein A Dur.: 106.1 msec P Vein S/D Ratio: 0.82 Tricuspid Valve TR Peak Yusef.: 2.51 m/s TR Peak Gr.: 25.25 mmHg PA Pressure: 35.00 mmHg Left Ventricle Left ventricle is at the upper limits of normal. There is akinesis in the inferior wall.Global elsewhere. Moderate concentric left ventricular hypertrophy. Left ventricular systolic function is mild to moderately decreased. LVEF is 35-40%. Grade II - pseudonormal filling dynamics. Right Ventricle Right ventricle is at the upper limits of normal. The right ventricular systolic function is normal. Atria Left atrium is dilated. Right atrium is dilated. Aortic Valve The aortic valve is normal in structure. No aortic regurgitation is present. There is no aortic valvular stenosis. Mitral Valve The mitral valve is normal in structure. Mild mitral regurgitation. No evidence of mitral valve stenosis. Tricuspid Valve The tricuspid valve is normal in structure. There is trace to mild tricuspid regurgitation. Estimated PAP 35 mmHg. There is mild [facility] [address] [place] [address] 2 D/M-MODE ECHOCARDIOGRAM Name: JAUN SOLOMON Room #: 217-P ADM IN M.R.#: [id number] Admission: 01/30/18 Attend Phys: Serge Alicia, Discharge: Date of : 53 Date of Service: 01/31/18 1054 Report #: [id number] pulmonary hypertension. Pulmonic Valve The pulmonary valve is normal in structure. There is no pulmonic valvular regurgitation. Great Vessels The aortic root is normal in size. IVC is dilated and collapses >50% with inspiration. Pericardium There is no pericardial effusion. <Conclusion> There is akinesis in the inferior wall.Global elsewhere. LVEF is 35-40%. Left atrium is dilated. There is no aortic valvular stenosis. No aortic regurgitation is present. Mild mitral regurgitation. There is no pericardial effusion. <ELECTRONICALLY SIGNED> By: Stephen Montoya MD, FACC 01/31/18 1054 1054 1054 Stephen Montoya MD, FACC /INF
--- NOTE | ~2018-01-30 | HC ---
[facility] [place] [place] [address] CONSULTATION Name: JAUN SOLOMON Room #: 217-P [facility] IN M.R.#: [id number] Admission: 01/30/18 Attend Phys: Serge Alicia MD Discharge: 02/01/18 Date of : 54 Report #: [id number] THIS REPORT FOR: //name// CC: Serge Bustamante DATE OF SERVICE: 01/31/2018 CHIEF COMPLAINT: Left below-knee amputation stump surgical wound. HISTORY OF PRESENT ILLNESS: This is a 62-year-old male patient with whom I am familiar from hospitalization earlier this year. He is admitted for adjustment to his medications and cardiac evaluation. He has a dehisced surgical incision to his left BKA. The actual incision has healed, but he has developed ulceration just proximal to that. He relates he is going to be scheduled for a revision surgery later this week with Dr. Wiley Kenney, his orthopedic surgeon. The patient denies significant pain there, but he also notes that he has a small ulceration on his left buttock that occurred when he was being lifted in a different hospital and apparently was dropped striking his buttocks on the arm of a chair. He denies other complaints at this time. Denies chest pain or shortness of breath. PAST MEDICAL HISTORY: The patient's past history is positive for diabetes, anemia, chest pain, orthostatic hypotension, coronary artery disease, cardiomyopathy, hyperlipidemia and history of nonsustained ventricular tachycardia. ALLERGIES: SULFA AND LISINOPRIL. MEDICATIONS: Include Synthroid, venlafaxine, Ativan, Nitrostat, acetaminophen, Xarelto, omeprazole, Proscar, ProAmatine, Lipitor, Coreg, trazodone, amiodarone, bupropion, desvenlafaxine, Lasix, Lantus, Humalog, Glucophage, Zofran, Effient and Flomax. SOCIAL HISTORY: Negative for tobacco, negative for drug use. Positive for occasional alcohol use. FAMILY HISTORY: Noncontributory. REVIEW OF SYSTEMS: CONSTITUTIONAL: The patient denies fever, chills or weight loss. NEUROLOGIC: The patient denies focal weakness, numbness or tingling. EYES: The patient denies visual changes, redness or drainage. ENT: The patient denies earache, nasal drainage or sore throat. CARDIOVASCULAR: The patient denies chest pain, palpitations or diaphoresis. PULMONARY: The patient denies cough or shortness of breath. [facility] [address] [place] [address] CONSULTATION Name: JAUN SOLOMON Room #: 217-P DIS IN ..#: [id number] Admission: 01/30/18 Attend Phys: Serge Alicia MD Discharge: 02/01/18 Date of : 53 Report #: [id number] GASTROINTESTINAL: The patient denies nausea, vomiting, abdominal pain or diarrhea. ORTHOPEDIC: The patient does have the open area on his left BKA. Other systems in a 14-point review of systems are negative. PHYSICAL EXAMINATION: VITAL SIGNS: At this time include pulse rate 75, respiratory rate of 18, blood pressure of 90/46 and temperature 98.6. GENERAL: This is a well-developed, well-nourished male patient, who appears to be in minimal distress. HEENT: Normocephalic. Nose and throat clear. NECK: Supple. LUNGS: Clear. HEART: Regular rhythm. ABDOMEN: Soft. Bowel sounds present. EXTREMITIES: The lower extremities demonstrate a small circular wound to the left buttocks. It is healthy, clean and granulating. There is no evidence of infection. No exposure of deep structures. The left BKA demonstrates a circular ulceration overlying the distal portion of the left BKA stump. There is granulation covering bone and the muscular flap seems to have slid posteriorly a bit, leaving the bony area protruding. CLINICAL IMPRESSION: 1. Wound to the left below-knee amputation. 2. Diabetes mellitus. 3. Traumatic wound to the left gluteal region. RECOMMENDATIONS: At this point in time, the patient will be placed on a low air loss mattress, will need q. 2 hour turning and positioning. We will recommend a bordered foam to the left gluteal region in addition to skin prep Sunday, Sunday and Sunday and as needed. I think this will heal spontaneously. He is scheduled for revision surgery as I think it would be appropriate given the appearance of his stump. He needs a better muscular covering over the bone in order to fit the prosthesis and to be able to ambulate without fear of further breakdown. The area is clean and does not appear to be infected. At this time, we will recommend a simple silver alginate and gauze dressing for the time being. I appreciate being asked to see him in consultation. <ELECTRONICALLY SIGNED> By: Gustavo Pinzon MD 02/01/18 1623 1733 2231 Gustavo Pinzon MD /nt
--- NOTE | ~2018-01-30 | EKG ---
[address] [address] ELECTROCARDIOGRAM REPORT Name: JAUN SOLOMON Room #: 217-P ADM IN M.R.#: [id number] Admission: 01/30/18 Attend Phys: Serge Alicia MD Discharge: Date of : 53 Report #: [id number] THIS REPORT FOR: //name// [facility] Test Date: 2018-01-30 Test Time: 18:55:07 Pat Name: JAUN SOLOMON Department: Room: 217 P Gender: M Thermal Engineer: David ROOT : 1955 Requested By: Heike Bazan Order Number: [id number] MD: Brad Mera Measurements Intervals [place] Rate: 73 P: 51 SC: 191 QRS: 28 QRSD: 122 T: -28 QT: 471 QTc: 519 Interpretive Statements Sinus rhythm Ventricular premature complex Probable left atrial enlargement Nonspecific intraventricular conduction delay Inferior infarct, age indeterminate Compared to ECG 12/01/2017 21:23:55 No significant changes Electronically Signed On 01-30-2018 21:12:25 INVESTMENT ASSOCIATE by Brad Mera [email or web address] <ELECTRONICALLY SIGNED> By: Brad Mera MD 01/30/182111 54 54 Brad Mera MD /EPI
--- NOTE | ~2018-01-30 | HC ---
[facility] [place] [address] CONSULTATION Name: JAUN SOLOMON Room #: 217-P ADM IN M.R.#: [id number] Admission: 01/30/18 Attend Phys: Serge Alicia MD Discharge: Date of : 53 Report #: [id number] THIS REPORT FOR: //name// CC: Serge Bustamante DATE OF SERVICE: 01/31/2018 PRIMARY CARE PHYSICIAN: Dr. Eloy Bustamante. STUDENT UNION CONSULTANT: Dr. Gordon. CHIEF COMPLAINT: Low blood pressure. HISTORY OF PRESENT ILLNESS: The patient is a 62-year-old man with history of coronary artery disease, ischemic cardiomyopathy who was [facility] and apparently had been mildly hypotensive without symptoms of chest pain or shortness of breath. He was transferred here for further evaluation. He was given IV fluids and his blood pressure improved from the 70s-80s systolic to this morning in the mid 90s. With this, he was minimally symptomatic. He was perhaps a little bit tired. He has had history of coronary artery disease and remote myocardial infarction and had been having some chest pain infrequently, but not necessarily associated yesterday. Yesterday, he did not report any significant chest pressure or tightness and this morning he is asymptomatic. On telemetry overnight he has remained in a sinus rhythm. PAST MEDICAL HISTORY: He is followed by Dr. Gordon in our practice for an ischemic cardiomyopathy. Most recently, he had a discharge in 2016 with some bleeding issues following a PCI. In 2016, his echocardiogram revealed an EF of 35% with diffuse hypokinesis. He has a history of atrial arrhythmias, on amiodarone. He has a medically managed LAD stenosis. He has a history of osteomyelitis with initial fracture and then poor wound healing and osteomyelitis ultimately requiring a left-sided BKA this past spring, insulin requiring diabetes, chronic systolic heart failure, history of multiple PEs, he is anticoagulated with Xarelto. He has chronic anemia, GERD. CURRENT MEDICATIONS: Include Xarelto 20 mg daily, tamsulosin, Aldactone 25 mg daily, ranolazine 500 mg p.o. b.i.d., potassium chloride 20 mEq p.o. b.i.d., midodrine 5 mg p.o. t.i.d., Plavix 75 mg daily, amiodarone 200 mg daily, atorvastatin 80 mg daily, Coreg 3.125 mg p.o. b.i.d. and Lasix 40 mg p.o. b.i.d. REVIEW OF SYSTEMS: CARDIOVASCULAR: Rare chest discomfort, no shortness of breath, no orthopnea, no [address] [address] CONSULTATION Name: JAUN SOLOMON Room #: 217-P ADM IN M.R.#: [id number] Admission: 01/30/18 Attend Phys: Serge Alicia MD Discharge: Date of : 53 Report #: [id number] PND, no edema. NEUROLOGIC: No headaches, blurry vision or seizures. HEMATOLOGIC: Positive anemia. No bleeding. GASTROINTESTINAL: No hematemesis or melena. GENITOURINARY: No blood in his urine. SKIN: No rashes. GENERAL: No fevers or chills. PULMONARY: No cough. PHYSICAL EXAMINATION: VITAL SIGNS: Blood pressure this morning is 90/46, pulse 74 in sinus rhythm, temperature 37.0, and O2 sats 93% on room air. GENERAL: Pleasant middle-aged male, who is alert, oriented, in no apparent distress. NECK: Supple. No jugular venous distention. CARDIOVASCULAR: Regular, I cannot hear a murmur or S3. LUNGS: Clear to auscultation. ABDOMEN: Soft, nontender. EXTREMITIES: No peripheral edema. SKIN: No focal deficits. PSYCHIATRIC: The patient has appropriate mood and affect. DIAGNOSTIC DATA: Electrocardiogram shows sinus rhythm, Q-waves in the inferior leads with normal ST segments. Cardiac troponin level was not available, but in [facility] was 0.081. IMAGING: There is no imaging. IMPRESSION: 1. Low blood pressure. I suspect he was over diuresed and perhaps had minimal, according to the patient, p.o. intake over the last few days. We will hold his diuretics and give him IV fluids cautiously. His blood pressure has already improved overnight. 2. Coronary artery disease. His cardiac troponin level is likely secondary to congestive heart failure. I will check an echocardiogram to reassess left ventricular function as well as check an MPI. He had previously been managed medically for his coronary artery disease and he does have only minimal functional capabilities at this point in time and has minimal angina. 3. Status post amputation. Apparently, he is scheduled for revision with Dr. Kenney next week. 4. Ischemic cardiomyopathy, chronic systolic dysfunction. As noted above, he seems volume compensated to perhaps volume depleted. 5. History of pulmonary embolism. He is aggressively anticoagulated because of both atrial arrhythmias and pulmonary emboli as well as prior coronary [facility] [place] [address] [place] [address] CONSULTATION Name: JAUN SOLOMON Room #: 217-P ADM IN M.R.#: [id number] Admission: 01/30/18 Attend Phys: Serge Alicia MD Discharge: Date of : 53 Report #: [id number] Swartz had him on aggressive antiplatelet therapy strategy and I will continue with this. By: 0911 1012 Stephen Montoya MD, FACC /nt
[~2018-01-30 15:48] MED LIST changes: +JARDIANCE10 MG PO; +KLOR-CON M2020 MEQ PO; +PLAVIX 75 MG TA75 M1 PO; +PROTONIX40 M2 PO; +RANEXA500 MG PO; +REGLAN 10 MG TA10 MG PO; +SPIRONOLACTONE25 M1 PO
[2018-01-30 17:41] VITALS: BP 117/73
[2018-01-30 19:29] VITALS: BP 131/70
[2018-01-30] MEDS ORDERED: METFORMIN HCL500 MG PO (20:47)
[2018-01-30] MEDS ORDERED: MIDODRINE HCL 55 M1 PO (20:47)
[2018-01-30] MEDS ORDERED: DESVENLAFAXINE50 M2 PO (20:50)
[2018-01-30] MEDS ORDERED: DICLOFENAC SODI25 MG PO (20:53)
[2018-01-30] MEDS ORDERED: JARDIANCE10 MG (20:54)
[2018-01-30] MEDS ORDERED: OXYCONTIN15 MG PO (20:56)
[2018-01-30] MEDS ORDERED: SYNTHROID137 MC1 PO (20:57)
[2018-01-30] MEDS ORDERED: TRAZODONE HCL100 MG PO (20:58)
[2018-01-30 23:30] VITALS: BP 113/67
[2018-01-30] MEDS ORDERED: LYRICA 75 MG CA75 MG PO (23:59)
[2018-01-31 01:55] VITALS: BP 113/67
[2018-01-31 03:52] LABS: CALCIUM 8.8 mg/dL (8.5-10.1); CREATININE 0.9 mg/dL (0.7-1.3); MAGNESIUM 1.8 mg/dL (1.8-2.4)
[2018-01-31 03:56] VITALS: BP 119/59
[2018-01-31 04:10] LABS: ABSOLUTE NEUTROPHILS 3.9 thou/uL (1.4-8.2); BASOPHILS 2.9 % (0.0-2.0); EOSINOPHILS 6.7 % (0.0-3.0); HEMATOCRIT 28.1 % (42.0-52.0); HEMOGLOBIN 8.8 gm/dL (14.0-18.0); LYMPHOCYTES 17.5 % (24.0-44.0); MCH 21.6 pg (26.0-34.0); MCHC 31.3 g/dL (28.0-37.0); MCV 69.1 fL (80.0-100.0); MONOCYTES 10.4 % (1.0-8.0); PLATELET COUNT 336 thou/uL (150-400); POLYS 62.5 % (36.0-66.0); RBC 4.07 mil/uL (4.50-6.00); RDW 21.3 % (10.5-14.5); WBC 6.2 thou/uL (4.0-11.0)
[2018-01-31 04:52] LABS: ANISOCYTOSIS 2+; HYPOCHROMASIA 2+; MICROCYTES 2+; POLYCHROMASIA 1+
[2018-01-31 04:53] LABS: LARGE PLATELETS RARE
[2018-01-31 06:12] LABS: % SATURATION 4 % (20-39); IRON 14 ug/dL (65-175); TIBC 325 ug/dL (250-450)
[2018-01-31 06:15] LABS: CHOLESTEROL 119 mg/dL (<200); HDL CHOLESTEROL 37 mg/dL (>40); LDL CHOLESTEROL 57 mg/dL (<100); TC:HDL 3.2 Ratio (Not establshd); TRIGLYCERIDE 128 mg/dL (<150); TROPONIN-I 0.09 ng/mL (<0.06); VLDL 26 mg/dL (<40)
[2018-01-31 07:32] LABS: FOLIC ACID 33.4 ng/mL (8.6-58.9)
[2018-01-31 08:08] VITALS: BP 90/46
[2018-01-31 16:20] VITALS: BP 112/60
[2018-01-31 19:42] VITALS: BP 125/55
[2018-02-01 04:46] VITALS: BP 132/82
[2018-02-01 07:44] VITALS: BP 111/62
[2018-02-01 10:36] VITALS: BP 111/62
== END 2018-02-01 11:35 | disposition home or self-care (01) | DRG 683 ==
LOC: 2N 15:48 → ENTRNSPT 02-01 11:19 → EDTRNSPTSTS 02-01 11:22 → 2N 02-01 11:35
PROVIDERS: Nurse Practitioner
DX: N17.9 Acute kidney failure, unspecified (principal); I50.22 Chronic systolic (congestive) heart failure; I25.10 Atherosclerotic heart disease of native coronary artery without angina pectoris; I25.5 Ischemic cardiomyopathy; K21.9 Gastro-esophageal reflux disease without esophagitis; E78.5 Hyperlipidemia, unspecified; S31.829A Unspecified open wound of left buttock, initial encounter; G89.29 Other chronic pain; M54.9 Dorsalgia, unspecified; M19.90 Unspecified osteoarthritis, unspecified site; G47.00 Insomnia, unspecified; I11.0 Hypertensive heart disease with heart failure; F32.9 Major depressive disorder, single episode, unspecified; F41.9 Anxiety disorder, unspecified; E11.51 Type 2 diabetes mellitus with diabetic peripheral angiopathy without gangrene; E03.9 Hypothyroidism, unspecified; D64.9 Anemia, unspecified; I25.119 Atherosclerotic heart disease of native coronary artery with unspecified angina pectoris; I25.2 Old myocardial infarction; Z86.711 Personal history of pulmonary embolism; Z88.2 Allergy status to sulfonamides; Z88.8 Allergy status to other drugs, medicaments and biological substances; Z87.442 Personal history of urinary calculi; Z95.5 Presence of coronary angioplasty implant and graft; X58.XXXA Exposure to other specified factors, initial encounter; Y93.89 Activity, other specified; Y92.89 Other specified places as the place of occurrence of the external cause; Y99.8 Other external cause status
CPT/HCPCS: 10081

== ENCOUNTER 2018-05-03 08:43 | Emergency (ER) | payer BC ==
[~2018-05-03] VITALS: Ht 190.5 cm; Wt 98.2 kg
[~2018-05-03 08:43] MED LIST changes: +DICLOFENAC SODI25 MG PO; +JARDIANCE10 MG; +OXYCONTIN15 MG PO; +SYNTHROID137 MC1 PO
[2018-05-03 09:17] LABS: HEMATOCRIT 36.8 % (42.0-52.0); HEMOGLOBIN 11.9 gm/dL (14.0-18.0); MCH 24.2 pg (26.0-34.0); MCHC 32.2 g/dL (28.0-37.0); PLATELET COUNT 224 thou/uL (150-400); RDW 26.5 % (10.5-14.5); WBC 5.9 thou/uL (4.0-11.0)
[2018-05-03 09:26] LABS: ANION GAP 7 mmol/L (7-16); APTT 26.6 Seconds (24.5-32.8); BUN 24 mg/dL (7-18); CHLORIDE 100 mmol/L (98-107); CO2 30 mmol/L (21-32); CREATININE 1.1 mg/dL (0.7-1.3); GLUCOSE 240 mg/dL (74-106); POTASSIUM 4.8 mmol/L (3.5-5.1); PROTIME 10.9 Seconds (9.3-11.4); SODIUM 137 mmol/L (136-145)
[2018-05-03 09:35] LABS: ALBUMIN 3.6 g/dL (3.4-5.0); SGOT 21 U/L (15-37); SGPT 35 U/L (30-65); TOTAL BILIRUBIN 0.2 mg/dL (<0.1-1.0); TOTAL PROTEIN 7.6 g/dL (6.4-8.2); TROPONIN-I <0.06 ng/mL (<0.06)
[2018-05-03 09:47] LABS: URINE BILIRUBIN NEGATIVE (Negative); URINE BLOOD NEGATIVE (Negative); URINE CLARITY CLEAR; URINE COLOR YELLOW; URINE GLUCOSE-RANDOM* 3+ (Negative); URINE KETONES NEGATIVE (Negative); URINE LEUKOCYTES-REFLEX NEGATIVE (Negative); URINE NITRITE-REFLEX NEGATIVE (Negative); URINE PROTEIN (DIPSTICK) NEGATIVE (Negative); URINE UROBILINOGEN 0.2 E.U./dl (0.2-1.0)
[2018-05-03 09:56] LABS: AMP/METHAMP Negative (Negative); BARBITURATES Negative (Negative); BENZODIAZEPINES Negative (Negative); COCAINE Negative (Negative); METHADONE Negative (Negative); OPIATES Negative (Negative); PCP Negative (Negative)
[2018-05-03 09:57] LABS: ANISOCYTOSIS 1+
[2018-05-03] MEDS ORDERED: NITROGLYCERIN0.4 MG SUBLING (11:06)
[2018-05-03 11:28] VITALS: BP 138/73
--- NOTE | 2018-05-05 13:19 | EKG ---
[address] [place] [address] ELECTROCARDIOGRAM REPORT Name: JAUN SOLOMON Room #: DEP Oanh#: [id number] ������������������ Admission: 05/03/18 ������������������ Attend Phys: Discharge: 05/03/18 ������������������ Date of : 53 Report #: [id number] ����������������������������������������������������������������� [id number] THIS REPORT FOR: //name// [facility] ED Test Date: 2018-05-03 Test Time: 09:02:34 Pat Name: JAUN SOLOMON Department: Room: Gender: M Countersinker Balance Screw Hole: vidya : 1955 Requested By: Luiz White Order Number: [id number] MD: Yuval Christina Measurements Intervals [place] Rate: 67 P: 56 SC: 181 QRS: 41 QRSD: 123 T: -31 QT: 490 QTc: 518 Interpretive Statements Sinus rhythm Multiple ventricular premature complexes Nonspecific intraventricular conduction delay Inferior infarct, age indeterminate Compared to ECG 01/30/2018 18:55:07 No significant change was found Electronically Signed On 05-05-2018 13:19:44 CDT by Yuval Christina [email or web address] ��������������������������������������������� <ELECTRONICALLY SIGNED> ���������������������������������������� By: Yuval Christina MD, [facility] ��������������������������������������������� 05/05/18 1319 1 1 Yuval Christina MD, [facility] /EPI
== END 2018-05-03 11:28 | disposition home or self-care (01) ==
LOC: ER 08:43
PROVIDERS: Emergency Medicine
DX: I25.119 Atherosclerotic heart disease of native coronary artery with unspecified angina pectoris (principal); I10 Essential (primary) hypertension; E11.40 Type 2 diabetes mellitus with diabetic neuropathy, unspecified; R20.2 Paresthesia of skin; G89.29 Other chronic pain; M54.9 Dorsalgia, unspecified; F41.9 Anxiety disorder, unspecified; F32.9 Major depressive disorder, single episode, unspecified; Z86.711 Personal history of pulmonary embolism; Z86.73 Personal history of transient ischemic attack (TIA), and cerebral infarction without residual deficits; Z88.2 Allergy status to sulfonamides; Z88.8 Allergy status to other drugs, medicaments and biological substances; Z87.442 Personal history of urinary calculi; Z89.512 Acquired absence of left leg below knee; Z79.899 Other long term (current) drug therapy; Z79.4 Long term (current) use of insulin

== ENCOUNTER 2018-10-10 21:09 | Emergency (ER) | payer BC ==
[~2018-10-10] VITALS: Ht 190.5 cm; Wt 109.8 kg
[~2018-10-10 21:09] MED LIST changes: +NITROGLYCERIN0.4 MG SUBLING
[2018-10-10 22:39] LABS: HEMOGLOBIN 12.7 gm/dL (14.0-18.0); MCH 31.7 pg (26.0-34.0); MCHC 34.3 g/dL (28.0-37.0); MCV 92.6 fL (80.0-100.0); PLATELET COUNT 148 thou/uL (150-400); RBC 3.99 mil/uL (4.50-6.00); RDW 13.6 % (10.5-14.5); WBC 5.7 thou/uL (4.0-11.0)
[2018-10-10 22:44] LABS: ANION GAP 11 mmol/L (7-16); BUN 27 mg/dL (7-18); CALCIUM 8.1 mg/dL (8.5-10.1); CHLORIDE 105 mmol/L (98-107); CO2 23 mmol/L (21-32); GLUCOSE 66 mg/dL (74-106); SODIUM 139 mmol/L (136-145)
[2018-10-10 22:49] LABS: MAGNESIUM 1.5 mg/dL (1.8-2.4)
[2018-10-10 22:54] LABS: ALBUMIN 3.2 g/dL (3.4-5.0); SGOT 9 U/L (15-37); SGPT 20 U/L (30-65); TOTAL BILIRUBIN 0.3 mg/dL (<0.1-1.0); TOTAL PROTEIN 5.9 g/dL (6.4-8.2); TROPONIN-I <0.06 ng/mL (<0.06)
[2018-10-10 23:08] LABS: ABSOLUTE NEUTROPHILS 3.2 thou/uL (1.4-8.2); MYELOCYTES 1 %; PLATELET ESTIMATE DECREASED; POIKILOCYTOSIS 1+
[2018-10-11] MEDS ORDERED: NORCO 7.5-3251 EACH PO (00:47)
[2018-10-11 01:13] LABS: URINE BILIRUBIN NEGATIVE (Negative); URINE BLOOD NEGATIVE (Negative); URINE CLARITY CLEAR; URINE COLOR YELLOW; URINE GLUCOSE-RANDOM* 3+ (Negative); URINE KETONES TRACE (Negative); URINE LEUKOCYTES-REFLEX NEGATIVE (Negative); URINE NITRITE-REFLEX NEGATIVE (Negative); URINE PROTEIN (DIPSTICK) NEGATIVE (Negative); URINE UROBILINOGEN 0.2 E.U./dl (0.2-1.0)
[2018-10-11 01:55] VITALS: BP 129/73
--- NOTE | 2018-10-11 14:12 | EKG ---
[place] [address] [place] [address] ELECTROCARDIOGRAM REPORT Name: JAUN SOLOMON Room #: DEP Oanh#: [id number] Admission: 10/10/18 Attend Phys: Discharge: 10/11/18 Date of : 53 Report #: [id number] THIS REPORT FOR: //name// [facility] ED Test Date: 2018-10-10 Test Time: 21:14:37 Pat Name: JAUN SOLOMON Department: Room: Gender: M Disassembler: JENNIFER : 1955 Requested By: Naomie Calles Order Number: [id number] MD: Yuval Christina Measurements Intervals [place] Rate: 71 P: 56 SD: 181 QRS: 52 QRSD: 121 T: -41 QT: 436 QTc: 474 Interpretive Statements Sinus rhythm Ventricular trigeminy Nonspecific intraventricular conduction delay Inferior infarct, age indeterminate Compared to ECG 05/03/2018 09:02:34 No significant changes Electronically Signed On 10-11-2018 14:12:06 CDT by Yuval Christina [email or web address] <ELECTRONICALLY SIGNED> By: Yuval Christina MD, [facility] 10/11/18 1412 13 13 Yuval Christina MD, FACC /EPI
== END 2018-10-11 04:04 | disposition home or self-care (01) ==
LOC: ER 21:09
PROVIDERS: Emergency Medicine
DX: N17.9 Acute kidney failure, unspecified (principal); R51 Headache; M54.9 Dorsalgia, unspecified; G89.29 Other chronic pain; K21.9 Gastro-esophageal reflux disease without esophagitis; E11.9 Type 2 diabetes mellitus without complications; F41.9 Anxiety disorder, unspecified; F32.9 Major depressive disorder, single episode, unspecified; I10 Essential (primary) hypertension; Z90.49 Acquired absence of other specified parts of digestive tract; Z87.442 Personal history of urinary calculi; Z95.5 Presence of coronary angioplasty implant and graft; Z86.711 Personal history of pulmonary embolism; Z88.2 Allergy status to sulfonamides; Z88.8 Allergy status to other drugs, medicaments and biological substances

== ENCOUNTER 2019-03-30 11:09 | Emergency (ER) | payer BC ==
[~2019-03-30] VITALS: Ht 190.5 cm; Wt 104.3 kg
[2019-03-30 12:19] LABS: BASOPHILS 0.9 % (0.0-2.0); EOSINOPHILS 2.2 % (0.0-3.0); HEMATOCRIT 42.1 % (42.0-52.0); HEMOGLOBIN 13.8 gm/dL (14.0-18.0); MCH 30.7 pg (26.0-34.0); MCHC 32.7 g/dL (28.0-37.0); MCV 93.9 fL (80.0-100.0); MONOCYTES 6.6 % (1.0-8.0); PLATELET COUNT 196 thou/uL (150-400); POLYS 78.3 % (36.0-66.0); RBC 4.48 mil/uL (4.50-6.00); RDW 14.1 % (10.5-14.5); WBC 6.4 thou/uL (4.0-11.0)
[2019-03-30 12:27] LABS: CALCIUM 8.5 mg/dL (8.5-10.1); CREATININE 1.8 mg/dL (0.7-1.3); POTASSIUM 5.6 mmol/L (3.5-5.1)
[2019-03-30 12:28] LABS: MAGNESIUM 1.8 mg/dL (1.8-2.4)
[2019-03-30 15:24] LABS: URINE BILIRUBIN NEGATIVE (Negative); URINE BLOOD NEGATIVE (Negative); URINE CLARITY CLEAR; URINE COLOR YELLOW; URINE GLUCOSE-RANDOM* 3+ (Negative); URINE KETONES NEGATIVE (Negative); URINE LEUKOCYTES-REFLEX NEGATIVE (Negative); URINE NITRITE-REFLEX NEGATIVE (Negative); URINE PROTEIN (DIPSTICK) NEGATIVE (Negative); URINE SPECIFIC GRAVITY 1.015 (1.005-1.035); URINE UROBILINOGEN 0.2 E.U./dl (0.2-1.0)
[2019-03-30 15:34] LABS: AMP/METHAMP Negative (Negative); BARBITURATES Negative (Negative); BENZODIAZEPINES Negative (Negative); COCAINE Negative (Negative); METHADONE Negative (Negative); OPIATES Negative (Negative); PCP Negative (Negative)
[2019-03-30 21:17] VITALS: BP 154/76
--- NOTE | 2019-04-02 12:33 | EKG ---
[facility] [place] [address] ELECTROCARDIOGRAM REPORT Name: JAUN SOLOMON Room #: DEP [facility].#: [id number] Admission: 03/30/19 Attend Phys: Discharge: 03/30/19 Date of : 53 Report #: [id number] THIS REPORT FOR: cc: Eloy Bustamante MD, Logan F. MD Lundgren, Craig H. 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: [facility] : 1955 Requested By: Naomie Calles Order Number: [id number] MD: Yuval Christina Measurements Intervals [place] Rate: 76 P: 51 SC: 194 QRS: 59 QRSD: 134 T: -59 QT: 443 QTc: 499 Interpretive Statements Sinus rhythm Nonspecific intraventricular conduction delay Inferior infarct, age indeterminate Compared to ECG 10/10/2018 21:14:37 Ventricular premature complex(es) no longer present Electronically Signed On 03-31-2019 7:51:33 VIDEOGRAPHER by Yuval Christina [email or web address] <ELECTRONICALLY SIGNED> By: Yuval Christina MD, [facility] 03/31/19 0751 1117 1117 Yuval Christina MD, [facility] /EPI
== END 2019-03-30 21:18 | disposition home or self-care (01) ==
LOC: ER 11:09
PROVIDERS: Emergency Medicine
DX: M54.5 Low back pain (principal); R42 Dizziness and giddiness; I10 Essential (primary) hypertension; K21.9 Gastro-esophageal reflux disease without esophagitis; F41.9 Anxiety disorder, unspecified; F32.9 Major depressive disorder, single episode, unspecified; Z86.711 Personal history of pulmonary embolism; Z90.49 Acquired absence of other specified parts of digestive tract; Z87.442 Personal history of urinary calculi; Z86.73 Personal history of transient ischemic attack (TIA), and cerebral infarction without residual deficits; Z95.5 Presence of coronary angioplasty implant and graft; Z88.2 Allergy status to sulfonamides; Z88.8 Allergy status to other drugs, medicaments and biological substances

== ENCOUNTER 2019-05-08 20:49 | Inpatient (IN) | payer BC ==
[~2019-05-08] VITALS: Ht 160 cm; Wt 95.3 kg
--- NOTE | ~2019-05-08 | EMS ---
[address] [address] EMS Patient Care Report Name: JAUN SOLOMON Room #: REG DIANA Hugo#: [id number] Admission: 05/08/19 Attend Phys: Discharge: Date of : 53 Report #: [id number] THIS REPORT FOR: //name// Report Transmitted: 05/08/2019 21:09 EMS Care Summary [facility] [id number] @ 05/08/2019 19:57 Incident Location [address] [place] [address] Patient JAUN SOLOMON Male, 63 Years 1955 Patient Address [address] [place] [address] Patient History Diabetes,Hypertension (HTN), Patient Allergies Sulfa,Lisinopril, Patient Medications Lantus, Humalog, Metformin, Chief Complaint Generalized weakness Disposition Transported No Lights/[place] Dispatch Reason Sick Person Transported To [facility] Narrative Medic Three dispatched to location on EMS call. Medic Three responded lights and sirens. Medic Three arrived on scene and took isolation protocols (Mask and gloves). Located Pt lying in bed A&Ox4 complaining of generalized weakness, nausea and vomiting. Pt stated weakness started approximately two days ago and [address] [address] EMS Patient Care Report Name: JAUN SOLOMON Room #: REG DIANA Hugo#: [id number] Admission: 05/08/19 Attend Phys: Discharge: Date of : 53 Report #: [id number] nausea started approximately 10 hours ago. Assisted Pt to stair chair where Pt was moved to cot outside. Pt was assisted to cot where he was secured to cot w/ straps, cot secured in ambulance. Initiated IV 20ga Saline Lock in left hand. Transported Pt to [facility] per Pt request. During transport, applied ECG which showed Sinus Tach. Initial blood glucose showed 362 and initial oral temp taken showed 97.4. Administered O2 via CO2 nasal cannula @ 2Lpm. ETCO2 showed 36. Pt stated [place] been [place] of the [place] in the last 6 months. Pt was complaining of shortness of breath. Auscultation of lung hillman were clear bilateral. Transferred Pt care to ER Nurse in ER Room 6. Initial Vitals @20:10P: 116,R: 20,BP: 122/74,Pain: 2/10,GCS: 15,SpO2: 98,Revised Trauma: 12, @20:38P: 116,R: 20,BP: 129/90,Pain: 2/10,GCS: 15,Temp: 97.4F,Glucose: 365,CO: 7,SpO2: 99,Revised Trauma: 12,CA Suspected: false @20:25P: 103,R: 20,BP: 124/60,Pain: 2/10,GCS: 15,Temp: 97.4F,Glucose: 365,EtCO2: 36,SpO2: 98,Revised Trauma: 12,CA Suspected: false @20:20P: 115,R: 20,BP: 120/70,Pain: 2/10,GCS: 15,Temp: 97.6F,Glucose: 365,CO: 8,SpO2: 98,Revised Trauma: 12,CA Suspected: false Assessments @20:09MENTAL:Person Oriented,Event Oriented,Place Oriented,Time Oriented,SKIN:HEENT:Head/Face: No Abnormalities,Neck/Airway: No Abnormalities,LUNG SOUNDS:General: No Abnormalities,ABDOMEN:General: No Abnormalities,PELVIS//GI:No Abnormalities,EXTREMITIES:Left Arm: No Abnormalities,Right Arm: No Abnormalities,Left Leg: No Abnormalities,Right Leg: No Abnormalities,PULSE:NEURO:No Abnormalities,@20:33MENTAL:Time Oriented,Place Oriented,Event Oriented,Person Oriented,SKIN:HEENT:Head/Face: No Abnormalities,Neck/Airway: No Abnormalities,LUNG SOUNDS:General: No Abnormalities,ABDOMEN:General: No Abnormalities,PELVIS//GI:No Abnormalities,EXTREMITIES:Left Arm: No Abnormalities,Right Arm: No Abnormalities,Left Leg: No Abnormalities,Right Leg: No Abnormalities,PULSE:NEURO:No Abnormalities, Impression Generalized Weakness Procedures @20:09ALS AssessmentResponse: UnchangedSucceeded@20:26Oxygen FlowRate: 2 Device: CO2 Nasal Cannula Response: UnchangedSucceeded@20:22Saline Lock 12cc (20 ga) Site: Hand-LeftResponse: UnchangedSucceeded@20:283-Lead ECGResponse: UnchangedSucceeded Timeline 19:55,Call Received 19:55,Psap Call 19:57,Dispatched [address] [address] EMS Patient Care Report Name: JUANITOJAUN Room #: REG DIANA Hugo#: [id number] Admission: 05/08/19 Attend Phys: Discharge: Date of : 53 Report #: [id number] 19:59,En Route 20:07,On Scene 20:09,At Patient 20:09,ALS Assessment,Response: UnchangedSucceeded, 20:10,BP: 122/74 M,PULSE: 116,RR: 20 R,SPO2: 98 Ox,ETCO2: ,BG: ,PAIN: 2,GCS: 15, 20:20,BP: 120/70 M,PULSE: 115,RR: 20 R,SPO2: 98 Ox,ETCO2: ,B,PAIN: 2,GCS: 15, 20:22,Saline Lock 12cc 20 ga Site: Hand-Left,Response: UnchangedSucceeded, 20:24,Depart Scene 20:25,BP: 124/60 M,PULSE: 103,RR: 20 R,SPO2: 98 Ox,ETCO2: 36 ,B,PAIN: 2,GCS: 15, 20:26,Oxygen FlowRate: 2 Device: CO2 Nasal Cannula Response: UnchangedSucceeded, 20:28,3-Lead ECG,Response: UnchangedSucceeded, 20:38,BP: 129/90 M,PULSE: 116,RR: 20 R,SPO2: 99 Ox,ETCO2: ,B,PAIN: 2,GCS: 15, 20:43,At Destination 21:16,Call Closed Disclaimer v1.1 Copyright 2020 [employer] This EMS Care Summary contains data elements from the applicable legal record (which may be displayed differently). It is designed to provide pertinent information for the following purposes: continuity of care, clinical quality, and state data reporting. The complete legal record is available to ED staff and administrators of the receiving hospital in [employer]'s Patient Tracker. All data is provided "as is."
[2019-05-08 20:51] VITALS: BP 128/68
[2019-05-08 21:47] LABS: HEMATOCRIT 48.1 % (42.0-52.0); HEMOGLOBIN 15.7 gm/dL (14.0-18.0); MCH 31.2 pg (26.0-34.0); MCHC 32.5 g/dL (28.0-37.0); MCV 95.9 fL (80.0-100.0); PLATELET COUNT 293 thou/uL (150-400); RBC 5.02 mil/uL (4.50-6.00); RDW 14.5 % (10.5-14.5); WBC 24.6 thou/uL (4.0-11.0)
[2019-05-08] MEDS ORDERED: REGLAN 10 MG TA10 MG PO (21:53)
[2019-05-08] MEDS ORDERED: PAXIL 20 MG TAB20 MG PO (21:55)
[2019-05-08] MEDS ORDERED: ROXICODONE15 M1 PO (21:55)
[2019-05-08 22:01] LABS: ALBUMIN 4.2 g/dL (3.4-5.0); ANION GAP 30 mmol/L (7-16); BUN 33 mg/dL (7-18); CALCIUM 9.5 mg/dL (8.5-10.1); CHLORIDE 94 mmol/L (98-107); CREATININE 2.7 mg/dL (0.7-1.3); GLUCOSE 389 mg/dL (74-106); LIPASE 66 U/L (73-393); SGOT 14 U/L (15-37); SGPT 29 U/L (30-65); SODIUM 131 mmol/L (136-145); TOTAL BILIRUBIN 0.6 mg/dL (<0.1-1.0); TOTAL PROTEIN 7.9 g/dL (6.4-8.2); TROPONIN-I <0.06 ng/mL (<0.06)
[2019-05-08 22:04] LABS: CO2 7 mmol/L (21-32); POTASSIUM 6.5 mmol/L (3.5-5.1)
[2019-05-08 22:39] LABS: HCO3 4.4 mmol/L (22.0-26.0)
[2019-05-08 22:41] LABS: PCO2 14.3 mmHg (35.0-45.0); PO2 0 mmHg (80.0-100.0); pH 7.105 (7.360-7.450)
[2019-05-08 22:52] LABS: ABSOLUTE NEUTROPHILS 22.9 thou/uL (1.4-8.2)
[2019-05-08 22:53] LABS: PLATELET ESTIMATE NORMAL
[2019-05-08 23:31] LABS: URINE BILIRUBIN 2+ (Negative); URINE BLOOD 1+ (Negative); URINE CLARITY CLEAR; URINE COLOR YELLOW; URINE GLUCOSE-RANDOM* 3+ (Negative); URINE KETONES 3+ (Negative); URINE LEUKOCYTES-REFLEX NEGATIVE (Negative); URINE NITRITE-REFLEX NEGATIVE (Negative); URINE PROTEIN (DIPSTICK) TRACE (Negative); URINE SPECIFIC GRAVITY 1.025 (1.005-1.035); URINE UROBILINOGEN 0.2 E.U./dl (0.2-1.0)
[2019-05-08 23:41] LABS: SQUAMOUS 0-3 Few /LPF (0-3)
[2019-05-08 23:42] LABS: BACTERIA-REFLEX 1-9 Few /HPF (None Seen); CASTS None Seen /LPF (None Seen); CRYSTALS None Seen /LPF (None Seen); MUCUS 0-3 Light strn/LPF (None Seen); URINE RBC 3-10 Few /HPF (0-2); URINE WBC-REFLEX 0-5 Rare /HPF (0-5)
[2019-05-09] VITALS (28 sets, daily range): BP systolic 101–145; BP diastolic 44–73
[2019-05-09 00:54] LABS: ANION GAP 27 mmol/L (7-16); BUN 33 mg/dL (7-18); CALCIUM 9.1 mg/dL (8.5-10.1); CHLORIDE 98 mmol/L (98-107); CREATININE 2.4 mg/dL (0.7-1.3); GLUCOSE 317 mg/dL (74-106); SODIUM 130 mmol/L (136-145)
[2019-05-09 00:57] LABS: CO2 < 5 mmol/L (21-32); POTASSIUM 5.6 mmol/L (3.5-5.1)
[2019-05-09 06:00] LABS: ABSOLUTE NEUTROPHILS 15.7 thou/uL (1.4-8.2); BASOPHILS 0.1 % (0.0-2.0); HEMATOCRIT 39.8 % (42.0-52.0); LYMPHOCYTES 4.4 % (24.0-44.0); MCH 31.2 pg (26.0-34.0); MCHC 33.5 g/dL (28.0-37.0); MCV 93.1 fL (80.0-100.0); MONOCYTES 6.4 % (1.0-8.0); PLATELET COUNT 219 thou/uL (150-400); POLYS 89.1 % (36.0-66.0); RBC 4.27 mil/uL (4.50-6.00); RDW 14.3 % (10.5-14.5); WBC 17.6 thou/uL (4.0-11.0)
[2019-05-09 06:11] LABS: HEMOGLOBIN 13.3 gm/dL (14.0-18.0)
[2019-05-09 06:34] LABS: CALCIUM 8.5 mg/dL (8.5-10.1); CREATININE 2.1 mg/dL (0.7-1.3); MAGNESIUM 1.7 mg/dL (1.8-2.4); PHOSPHORUS 1.8 mg/dL (2.5-4.9)
[2019-05-09 06:40] LABS: POTASSIUM 4.6 mmol/L (3.5-5.1)
[2019-05-09 09:24] LABS: CALCIUM 8.9 mg/dL (8.5-10.1); MAGNESIUM 1.6 mg/dL (1.8-2.4); POTASSIUM 4.4 mmol/L (3.5-5.1)
--- NOTE | 2019-05-09 16:22 | EKG ---
[facility] [place] [address] ELECTROCARDIOGRAM REPORT Name: JAUN SOLOMON Room #: 244-P ADM IN M.R.#: [id number] Admission: 05/08/19 Attend Phys: Serge Alicia MD Discharge: Date of : 53 Report #: [id number] THIS REPORT FOR: cc: VITA - No family physician/PCP VITA - No family physician/PCP Alexander Poe MD ~ THIS REPORT FOR: //name// 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[facility] 1955 Requested By: Seamus Elliott Order Number: [id number] MD: Alexander Poe Measurements Intervals [place] Rate: 113 P: 214 TN: 137 QRS: 78 QRSD: 144 T: -75 QT: 387 QTc: 531 Interpretive Statements Atrial flutter with rapid ventricular rate Nonspecific intraventricular conduction delay Inferior infarct, age indeterminate Compared to ECG 03/30/2019 11:17:01 Sinus rhythm no longer present Myocardial infarct finding still present Electronically Signed On 05-09-2019 16:20:41 CDT by Alexander Poe [email or web address] <ELECTRONICALLY SIGNED> By: Alexander Poe MD 05/09/19 1620 24 24 Alexander Poe MD /EPI
[2019-05-09 22:07] LABS: GLYCOHEMOGLOBIN (HGB A1C) 8.2 % (4.8-5.6)
[2019-05-10] VITALS (23 sets, daily range): BP systolic 85–137; BP diastolic 38–69
[2019-05-10 11:29] LABS: HEMATOCRIT 35.3 % (42.0-52.0); MCH 31.4 pg (26.0-34.0); MCHC 33.9 g/dL (28.0-37.0); MCV 92.8 fL (80.0-100.0); RBC 3.81 mil/uL (4.50-6.00); RDW 14.4 % (10.5-14.5); WBC 7.2 thou/uL (4.0-11.0)
[2019-05-10 11:34] LABS: CALCIUM 8.6 mg/dL (8.5-10.1); CREATININE 1.4 mg/dL (0.7-1.3); MAGNESIUM 1.7 mg/dL (1.8-2.4); POTASSIUM 4.1 mmol/L (3.5-5.1)
--- NOTE | 2019-05-10 13:30 | HC ---
[facility] [place] [address] CONSULTATION Name: JAUN SOLOMON Room #: 244-P [facility] IN M.R.#: [id number] Admission: 05/08/19 Attend Phys: Serge Alicia MD Discharge: Date of : 53 Report #: [id number] THIS REPORT FOR: cc: VITA Vogel family physician/PCP VITA Vogel family physician/PCP Aga Patel MD ~ CC: [facility] physician/PCP Serge Alicia DATE OF SERVICE: 05/09/2019 ENDOCRINE CONSULTATION CONSULTING PHYSICIAN: Dr. Au. REASON FOR CONSULTATION: DKA and uncontrolled type 2 diabetes mellitus. HISTORY OF PRESENT ILLNESS: This is a 63-year-old male patient whose medical background is significant for multiple medical issues including type 2 diabetes mellitus, insulin dependent, coronary artery disease as well as heart failure in addition to multiple PEs in the past. The patient presented to [facility]'s ER with the outlook of progressive weakness and intractable nausea and vomiting. The patient is a fairly poor historian, but to the best that I can tell, he had developed these complaints gradually over the course of a week. The patient indicates that he has been a diabetic since the age of 39 years and that he is maintained on a combination of Lantus insulin and Humalog insulin, but was practically unable to tell me what the specific doses of each is like at home. Also, he indicated that he takes Jardiance and metformin. The patient notes that he checks his blood glucose values at home, but was unable to give specifics on his blood glucose pattern. However, it seems that most of these have been over 200 mg/dL. The patient denies active or severe issues with hypoglycemia. The patient is not aware of issues pertaining to diabetic retinopathy, nephropathy or neuropathy. Additionally, the patient is known to have hyperlipidemia and is maintained on atorvastatin 80 mg daily. The patient is known to have coronary artery disease, status post 13 stent placements, the last of which was about 2 years ago. 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 He says that he has had off and on issues with chest discomfort and palpitations over the past few months. The patient is hypothyroid and is maintained on levothyroxine 137 mcg daily. He does not believe that recent changes were made to that regimen. On arrival to the ER, the patient was found to be in diabetic ketoacidosis and [facility] [address] [place] [address] CONSULTATION Name: JAUN SOLOMON Room #: 244-P [facility] IN .R.#: [id number] Admission: 05/08/19 Attend Phys: Serge Alicia MD Discharge: Date of : 53 Report #: [id number] was admitted for further care and monitoring. He was resuscitated with intravenous insulin, intravenous fluids and responded well to this line of treatment. REVIEW OF SYSTEMS: CONSTITUTIONAL: Fatigue, tiredness, but not weight changes or fever or chills. HEENT: Negative for sore throat, sinus pain, ear drainage. PULMONARY: Negative for shortness of breath, cough or hemoptysis. CARDIAC: Noted for intermittent issues with chest pain and palpitations. Occasional lower extremity swelling. GASTROINTESTINAL: Occasional abdominal discomfort, nausea, but no vomiting. NEUROLOGY: Negative for loss of consciousness, seizure activity or severe intractable headaches. PSYCHIATRIC: Negative for hallucinations, delusions. Otherwise, review of systems noncontributory other than those mentioned in HPI. PAST MEDICAL HISTORY: 1. Type 2 diabetes mellitus. 2. Hypertension. 3. Hyperlipidemia. 4. Hypothyroidism. 5. Coronary artery disease, status post 13 stent placements, last of which was 2 years ago. 6. Congestive heart failure. 7. Atrial fibrillation. 8. GERD. 9. Depression. 10. BPH. 11. Degenerative joint disease. 12. Multiple pulmonary embolism episodes in the past. 13. History of CVA. PAST SURGICAL HISTORY: 1. Back surgeries. 2. Right shoulder surgery. 3. Left shoulder surgery. 4. Sinus surgery. 5. Cholecystectomy. 6. Tonsillectomy. 7. Chiari brain surgery. 8. Cervical diskectomy. 9. Carpal tunnel surgery. 10. Hemorrhoidectomy. OUTPATIENT MEDICATIONS: Trazodone 150 mg at bedtime, Lyrica 150 mg t.i.d., amiodarone 200 mg daily, atorvastatin 80 mg daily, Plavix 75 mg daily, Protonix [address] [address] CONSULTATION Name: JAUN SOLOMON Room #: 244-P [facility] IN M.R.#: [id number] Admission: 05/08/19 Attend Phys: Serge Alicia MD Discharge: Date of : 53 Report #: [id number] mg daily, metformin 500 mg b.i.d., midodrine 5 mg t.i.d., diclofenac 25 mg q.i.d., empagliflozin unknown dose, levothyroxine 137 mcg daily, [place] 1 tab q. 6 hours p.r.n., Paxil 20 mg daily, Xarelto 20 mg p.o. at dinner, carvedilol 3.125 mg b.i.d., Lantus insulin unknown dose, Humalog insulin unknown dose, Zofran 4 mg p.r.n. nausea and tamsulosin 0.4 mg daily. ALLERGIES: SULFA and LISINOPRIL. FAMILY HISTORY: Noncontributory. SOCIAL HISTORY: The patient denies use of tobacco, alcohol or illicit drugs. PHYSICAL EXAMINATION: GENERAL: Pleasant male patient who is not in apparent pain or distress. VITAL SIGNS: Blood pressure is 120/60 mmHg, heart rate 95 beats per minute, respirations 19 per minute, temperature 36.8 degrees. CONSTITUTIONAL: Sitting upright in bed, appears comfortable, not in apparent distress. HEENT: Anicteric sclerae. Intact extraocular motions. NECK: Supple, without JVD, carotid bruits or lymphadenopathy. I do not appreciate thyromegaly. CHEST: Noted for moderate entry bilaterally with scattered rales and rhonchi. HEART: Regular rate and rhythm without murmurs or gallops. ABDOMEN: Soft, lax. No guarding. Active bowel sounds. EXTREMITIES: Lower extremity exam is negative for ankle edema, skin breaks or ulcerations. NEUROLOGIC: Awake, alert, seems disoriented and confused, unable to keep focus or answer my questions appropriately. Otherwise, his exam appears to be largely nonfocal. PSYCH: Awake, interactive. Flat mood and affect. He seemed to have significant difficulty focusing on my questions and keeping a direction in his discussions with me. LABORATORY RESULTS: On arrival to the ER, blood glucose was 306 and has consistently been under 160 mg/dL over the past several hours, on IV insulin therapy. Sodium 137, potassium 4.4, chloride 105, CO2 18, anion gap of 14, BUN 25, creatinine 2.0, AST 14, lipase 66. Total bilirubin 0.6, direct bilirubin 0.9, calcium 8.9, phosphorus 1.8, magnesium 1.6, alkaline phosphatase 114, ALT 29, total protein 7.9, albumin 4.2. EGFR 34. Ammonia 12. Lactic acid 3.3. Total CPK 145. Troponin is negative. Hemoglobin A1c is pending. White blood count 17.6, hemoglobin 13.3, hematocrit 39.8, platelets 219. TSH 0.039. Hemoglobin A1c is pending. ASSESSMENT AND PLAN: 1. Diabetic ketoacidosis. The patient presented in diabetic ketoacidosis with [address] [address] CONSULTATION Name: JUANITOJAUN Room #: 244-P [facility] IN M.R.#: [id number] Admission: 05/08/19 Attend Phys: Serge Alicia MD Discharge: Date of : 53 Report #: [id number] his anion gap initially running at 30. The patient was appropriately managed with intravenous insulin and intravenous fluid resuscitation and has normalized his metabolic abnormalities. Diabetic ketoacidosis has resolved at this point in time. I will transition the patient from IV insulin to subcutaneous insulin therapy as noted below. 2. Type 2 diabetes mellitus. As noted in HPI, it was exceedingly difficult to get meaningful details about the insulin regimen and glycemic pattern that the patient has had recently. Diabetic ketoacidosis has resolved at this point in time and I will switch him off of intravenous insulin as per his recorded intravenous insulin needs. According to the current outlook, the patient will be placed on Lantus insulin 20 units daily to start now in addition to support with Humalog supplemental scale low intensity and blood glucose monitoring a.c. and at bedtime. Intravenous insulin therapy will be discontinued 2-3 hours after Lantus. Further therapeutic adjustments will be made going forward. Given the occurrence of diabetic ketoacidosis, we might need to have the patient stop taking Jardiance as this might lower his threshold for further diabetic ketoacidosis episodes in the future despite its beneficial cardiovascular disease reduction impact. 3. Hypothyroidism. The patient is maintained on levothyroxine 137 mcg daily. His TSH is suppressed, but this might be at least partially due to his acute illness. I would like to obtain a free T4 prior to adjusting his dose according to this result. 4. Hyperlipidemia. The patient is maintained on high dose atorvastatin therapy and aggressive lipid control already maintained given his background of type 2 diabetes mellitus and active coronary artery disease. He is to maintain the same. 5. Hypertension. The patient's level of blood pressure control is adequate. He is to continue with the same. I have reviewed the patient's clinical care notes, laboratory data, and other pertinent clinical information past and present for over 35 minutes. I certainly appreciate this consultation by Dr. Au. <ELECTRONICALLY SIGNED> By: Aga Patel MD 05/10/19 1330 1323 1409 Aga Patel MD /nt
[2019-05-11 03:45] VITALS: BP 120/63
[2019-05-11 07:16] LABS: HEMATOCRIT 37.5 % (42.0-52.0); HEMOGLOBIN 12.9 gm/dL (14.0-18.0); MCH 31.5 pg (26.0-34.0); MCHC 34.5 g/dL (28.0-37.0); MCV 91.3 fL (80.0-100.0); RBC 4.11 mil/uL (4.50-6.00); RDW 14.1 % (10.5-14.5); WBC 4.9 thou/uL (4.0-11.0)
[2019-05-11 07:35] LABS: CALCIUM 8.4 mg/dL (8.5-10.1); MAGNESIUM 1.9 mg/dL (1.8-2.4); POTASSIUM 3.8 mmol/L (3.5-5.1)
[2019-05-11 08:18] VITALS: BP 143/85
[2019-05-11 09:00] VITALS: BP 143/85
[2019-05-11 13:00] VITALS: BP 153/86
[2019-05-11 14:55] VITALS: BP 153/86
[2019-05-11 19:46] VITALS: BP 135/69
[2019-05-12 04:18] VITALS: BP 116/69
[2019-05-12 08:25] VITALS: BP 160/99
[2019-05-12 11:38] VITALS: BP 160/99
== END 2019-05-12 16:00 | disposition home health service (06) | DRG 637 ==
LOC: ER 20:49 → EROBS 23:35 → ICU 23:35 → 4S 05-10 15:33 → 4N 05-11 18:08
PROVIDERS: Emergency Medicine; Nurse Practitioner; ADMIT Internal Medicine
DX: E11.10 Type 2 diabetes mellitus with ketoacidosis without coma (principal); G92 Toxic encephalopathy; N17.9 Acute kidney failure, unspecified; I13.0 Hypertensive heart and chronic kidney disease with heart failure and stage 1 through stage 4 chronic kidney disease, or unspecified chronic kidney disease; E87.5 Hyperkalemia; I50.9 Heart failure, unspecified; G89.29 Other chronic pain; K21.9 Gastro-esophageal reflux disease without esophagitis; F41.9 Anxiety disorder, unspecified; F32.9 Major depressive disorder, single episode, unspecified; I25.10 Atherosclerotic heart disease of native coronary artery without angina pectoris; M54.9 Dorsalgia, unspecified; E78.5 Hyperlipidemia, unspecified; E03.9 Hypothyroidism, unspecified; N18.9 Chronic kidney disease, unspecified; I95.9 Hypotension, unspecified; E11.51 Type 2 diabetes mellitus with diabetic peripheral angiopathy without gangrene; E11.22 Type 2 diabetes mellitus with diabetic chronic kidney disease; I48.91 Unspecified atrial fibrillation; N40.0 Benign prostatic hyperplasia without lower urinary tract symptoms; M19.90 Unspecified osteoarthritis, unspecified site; G47.00 Insomnia, unspecified; I25.2 Old myocardial infarction; Z90.49 Acquired absence of other specified parts of digestive tract; Z87.442 Personal history of urinary calculi; Z98.1 Arthrodesis status; Z86.73 Personal history of transient ischemic attack (TIA), and cerebral infarction without residual deficits; Z79.899 Other long term (current) drug therapy; Z79.84 Long term (current) use of oral hypoglycemic drugs; Z79.4 Long term (current) use of insulin; Z88.2 Allergy status to sulfonamides; Z88.8 Allergy status to other drugs, medicaments and biological substances; Z95.5 Presence of coronary angioplasty implant and graft; Z86.711 Personal history of pulmonary embolism; Z89.512 Acquired absence of left leg below knee; Z79.891 Long term (current) use of opiate analgesic; Z79.02 Long term (current) use of antithrombotics/antiplatelets
CPT/HCPCS: 10078; 10091; 10100

== ENCOUNTER 2019-07-20 15:51 | Inpatient (IN) | payer OTHER, MEDICARE ==
[~2019-07-20] VITALS: Ht 190.5 cm; Wt 104.3 kg
[~2019-07-20 15:51] MED LIST changes: +PAXIL 20 MG TAB20 MG PO; +ROXICODONE15 M1 PO
[2019-07-20 15:52] VITALS: BP 100/52
[2019-07-20 16:26] LABS: ABSOLUTE NEUTROPHILS 3.2 thou/uL (1.4-8.2); BASOPHILS 0.2 % (0.0-2.0); EOSINOPHILS 4.8 % (0.0-3.0); HEMATOCRIT 36.5 % (42.0-52.0); HEMOGLOBIN 12.5 gm/dL (14.0-18.0); MCH 31.3 pg (26.0-34.0); MCHC 34.2 g/dL (28.0-37.0); MCV 91.6 fL (80.0-100.0); MONOCYTES 8.2 % (1.0-8.0); PLATELET COUNT 169 thou/uL (150-400); POLYS 67.8 % (36.0-66.0); RBC 3.98 mil/uL (4.50-6.00); RDW 13.8 % (10.5-14.5); WBC 4.7 thou/uL (4.0-11.0)
[2019-07-20 16:45] LABS: ANION GAP 6 mmol/L (7-16); BUN 16 mg/dL (7-18); CHLORIDE 100 mmol/L (98-107); CO2 28 mmol/L (21-32); CREATININE 1.4 mg/dL (0.7-1.3); GLUCOSE 330 mg/dL (74-106); POTASSIUM 4.9 mmol/L (3.5-5.1); SODIUM 134 mmol/L (136-145)
[2019-07-20 16:54] LABS: TROPONIN-I <0.06 ng/mL (<0.06)
[2019-07-20 18:05] VITALS: BP 139/72
[2019-07-20 18:07] LABS: APTT 27.4 Seconds (24.5-32.8); INR 1.1; PROTIME 11.5 Seconds (9.3-11.4)
[2019-07-20] MEDS ORDERED: SYNTHROID200 MCG PO (18:20)
[2019-07-20] MEDS ORDERED: REGLAN10 MG PO (18:26)
[2019-07-20] MEDS ORDERED: OXYCODONE HCL E15 MG PO (18:28)
[2019-07-20] MEDS ORDERED: HYDROCODONE-AP1 EA11 PO (18:29)
[2019-07-20 18:36] VITALS: BP 143/70
[2019-07-20 19:56] VITALS: BP 143/72
[2019-07-20] MEDS ORDERED: LIPITOR40 MG PO (23:36)
[2019-07-20] MEDS ORDERED: FLOMAX0.4 MG PO (23:37)
[2019-07-20] MEDS ORDERED: TRAZODONE 150150 M1 PO (23:39)
[2019-07-21] VITALS (10 sets, daily range): BP systolic 128–148; BP diastolic 61–82
--- NOTE | 2019-07-21 02:50 | NUR ---
PT ARRIED AT THE UNIT AROUND 1930, PT IS AWAKE, ALERT AND ORIENTEDX4, MAKES NEEDS KNOWN, ADMISSION ASSESSMENTS CHARTED, C/O CHEST PAIN, MEDICATION GIVEN WITH PARTIAL RELIEF, DENIES COUGH OR SOB, ZOFRAN GIVEN FOR NAUSEA, NO FURTHER COMPLAINS, VSS, MEDICATION GIVEN ORDERED, RESTING IN BED AT THIS TIME, NO DISTRESS NOTED, WILL CONTINUE TO MINITOR
[2019-07-21 04:47] LABS: HEMATOCRIT 33.4 % (42.0-52.0); HEMOGLOBIN 11.5 gm/dL (14.0-18.0); MCH 31.6 pg (26.0-34.0); MCHC 34.3 g/dL (28.0-37.0); MCV 92.1 fL (80.0-100.0); RBC 3.63 mil/uL (4.50-6.00); RDW 13.5 % (10.5-14.5); WBC 4.2 thou/uL (4.0-11.0)
[2019-07-21 05:00] LABS: ALBUMIN 3.1 g/dL (3.4-5.0); CALCIUM 7.9 mg/dL (8.5-10.1); CREATININE 1.3 mg/dL (0.7-1.3); POTASSIUM 4.9 mmol/L (3.5-5.1); TOTAL BILIRUBIN 0.3 mg/dL (0.2-1.0); TOTAL PROTEIN 5.3 g/dL (6.4-8.2)
--- NOTE | 2019-07-21 08:10 | NUR ---
REMAINED SR/BBB ON THE MONITOR, ASSESSMENTS CHARTED, VSS, C/O CHEST PAIN AND BACK PAIN, MEDICATED PRN WITH PARTIAL RELIEF
--- NOTE | 2019-07-21 08:26 | EKG ---
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 : 1955 Requested By: Seamus Elliott Order Number: [id number] MD: Yuval Christina Measurements Intervals [place] Rate: 77 P: 16 DE: 185 QRS: 37 QRSD: 117 T: -42 QT: 465 QTc: 527 Interpretive Statements Sinus rhythm Nonspecific intraventricular conduction delay Inferior infarct, age indeterminate Compared to ECG 05/08/2019 21:25:35 Atrial flutter no longer present Electronically Signed On 07-21-2019 8:24:34 CDT by Yuval Christina [email or web address] <ELECTRONICALLY SIGNED> By: Yuval Christina MD, [facility] 07/21/19 0824 1558 1558 Yuval Christina MD, [facility] /EPI
[2019-07-21 13:36] LABS: CHOLESTEROL 143 mg/dL (<200); HDL CHOLESTEROL 46 mg/dL (>40); LDL CHOLESTEROL 76 mg/dL (<100); TC:HDL 3.1 Ratio (Not establshd); TRIGLYCERIDE 107 mg/dL (<150); VLDL 21 mg/dL (<40)
--- NOTE | 2019-07-21 14:53 | 2DMMODE ---
[address] [address] 2 D/M-MODE ECHOCARDIOGRAM Name: JAUN SOLOMON Room #: 213-P ADM IN M.R.#: [id number] Admission: 07/20/19 Attend Phys: Rudy Sherman MD Discharge: Date of : 53 Report #: [id number] THIS REPORT FOR: cc: FAM - No family physician/PCP FAM - No family physician/PCP Alexander Poe MD ~ APPROVED REPORT Study performed: 07/21/2019 13:17:47 EXAM: Comprehensive 2D, Doppler, and color-flow Echocardiogram Patient Location: Bedside Room #: 213 Status: routine BSA: 2.35 HR: 79 bpm BP: 149/61 mmHg Rhythm: NSR Other Information Study Quality: Adequate Indications Diabetes CAD Cardiomyopathy Chest Pain Hypertension/HDD 2D Dimensions RVDd: 38.19 mm IVSd: 14.82 (7-11mm) LVOT Diam: 21.95 (18-24mm) LVDd: 58.23 mm PWd: 14.82 (7-11mm) LVDs: 47.55 (25-40mm) Aortic Root: 36.15 mm Volumes Left Atrial Volume (Systole) Single Plane 4CH: 69.37 mL Single Plane 2CH: 79.60 mL LA ESV Index: 20.00 mL/m2 Aortic Valve [address] [address] 2 D/M-MODE ECHOCARDIOGRAM Name: JAUN SOLOMON Room #: 213-P ADM IN M.R.#: [id number] Admission: 07/20/19 Attend Phys: Rudy Sherman MD Discharge: Date of : 53 Report #: [id number] AoV Peak Yusef.: 1.27 m/s AO Peak Gr.: 6.44 mmHg LVOT Max P.08 mmHg LVOT Max V: 0.88 m/s WILFREDO Vmax: 2.62 cm2 Mitral Valve E/A Ratio: 1.2 MV Decel. Time: 184.68 ms MV E Max Yusef.: 1.09 m/s MV A Yusef.: 0.93 m/s MV PHT: 53.56 ms IVRT: 129.18 ms Pulmonary Valve PV Peak Yusef.: 1.02 m/s PV Peak Gr.: 4.13 mmHg Pulmonary Vein P Vein S: 0.38 m/s P Vein A: 0.18 m/s P Vein D: 0.37 m/s P Vein A Dur.: 96.9 msec P Vein S/D Ratio: 1.03 Tricuspid Valve TR Peak Yusef.: 1.92 m/s TR Peak Gr.: 14.74 mmHg PA Pressure: 20.00 mmHg Left Ventricle Left ventricle is dilated. There is hypokinesis of the inferior and inferolateral segments. Mild concentric left ventricular hypertrophy. Left ventricular ejection fraction is moderately decreased. LVEF is 35%. Grade II - pseudonormal filling dynamics. Right Ventricle The right ventricle is normal size. The right ventricular systolic function is normal. Atria Left atrium is borderline dilated. Right atrium is borderline dilated. Aortic Valve The aortic valve is normal in structure. The Aortic valve is sclerotic. No aortic regurgitation is present. There is no aortic valvular stenosis. Mitral Valve [facility] [address] [place] [address] 2 D/M-MODE ECHOCARDIOGRAM Name: JAUN SOLOMON Room #: 213-P [facility] IN ..#: [id number] Admission: 07/20/19 Attend Phys: Rudy Sherman MD Discharge: Date of : 53 Report #: [id number] The mitral valve is normal in structure. Trace to mild mitral regurgitation. No evidence of mitral valve stenosis. Tricuspid Valve The tricuspid valve is normal in structure. There is trace tricuspid regurgitation. Estimated PAP 20 mmHg. There is no pulmonary hypertension. Pulmonic Valve The pulmonary valve is normal in structure. There is no pulmonic valvular regurgitation. Great Vessels The aortic root is normal in size. IVC is not well visualized. Pericardium There is no pericardial effusion. <Conclusion> Left ventricle is dilated. Mild concentric left ventricular hypertrophy. Left ventricular ejection fraction is moderately decreased. LVEF is 35%. There is hypokinesis of the inferior and inferolateral segments. Grade II - pseudonormal filling dynamics. The right ventricle is normal size. Left atrium is borderline dilated. There is no aortic valvular stenosis. Trace to mild mitral regurgitation. There is trace tricuspid regurgitation. Estimated PAP 20 mmHg. <ELECTRONICALLY SIGNED> By: Alexander Poe MD 07/21/191450 50 50 Alexander Poe MD /INF
--- NOTE | 2019-07-21 15:03 | NUR ---
Sp with patient via phone. Patient admits with CP. He lives in independent home with , dtr and grandchldren. He has left BKA and reports has prosthesis, walker and cane at home. HX of [facility] and patient not sure he would need HH at dc from this hospital stay. He has steps in home and reports he navigates and takes walks outside. PCP Dr Lyons. Patient to have cardiac cath. Casemgt following.
--- NOTE | 2019-07-21 18:41 | NUR ---
PT CARE ASSUMED AT 0700. ASSESSMENTS CHARTED. MEDICATION CHARTED. PT AMBULATES WITH PROSTHESIS WELL, UP TO TOILET. PT WOULD LIKE DIFFERENT PAIN MEDS; STATES CURRENT PAIN MEDS DONT WORK WELL.
[2019-07-22] VITALS (14 sets, daily range): BP systolic 105–129; BP diastolic 55–78
--- NOTE | 2019-07-22 06:50 | NUR ---
ASSUMED CARE OF PATIENT AT 1900. PATIENT C/O OF PAIN IN BACK, TAILBONE AND CHEST. PATIENT ADMINISTERED PRN DOSE OF OXY-APAP ORDERED. PATIENT REPORTED MINIMAL RELIEF OF PAIN. OBTAINED AN ORDER FOR IV PUSH FENTANYL PRN Q4H. ADMINSTERED ORDERED. PATIENT REPORTED SOME RELIEF. THROUGHOUT NIGHT PATIENT CONTINUED ALTERNATING BETWEEN OXY-APAP AND FENTYNL. MOST OFTEN REPORTING PAIN AN 8 OR ABOVE. PAIN DID PROVIDE HIM SOME RELIEF BUT IT WAS NOT SUSTAINED. AT 0400. PATIENT ALSO REQUEST BENADRYL FOR PRURITIS ON NECK. OBTAINED HYDROCORTISONE CREAM 1% FOR PRN ITCHING. AT 0400 ASSESSMENT PATIENT OXYGEN SATURATION 88%. APPLIED 2L OF OXYGEN VIA NASAL CANNULA. WILL CONTINUE TO MONITOR.
--- NOTE | 2019-07-22 16:22 | CATHLAB ---
[facility] [place] [address] INVASIVE PROCEDURE REPORT Name: JAUN SOLOMON Room #: 213-P ADM IN M.R.#: [id number] Admission: 07/20/19 Attend Phys: Rudy Sherman MD Discharge: Date of : 53 Report #: [id number] THIS REPORT FOR: cc: FAM - No family physician/PCP FAM - No family physician/PCP Alexander Poe MD ~ APPROVED REPORT Study performed: 07/22/2019 13:30:17 Patient Details Patient Status: In-Patient Room #: The patient is a 64 year-old male Event Personnel Alexander Poe Receiving Room Clerk, Amber Koenig RN RN, Andres Prieto Monitor, Cassidy Nunez RTR Scrub Procedures Performed Left Heart Cath w/or w/o Coronaries [id number] [facility] RAFA Place w/wo Plasty Single CIRC [id number] Art Access - R femoral artery* Hemostasis w/ Mynx Indication Dyspnea, Unstable angina , Chest pain Risk Factors Hypercholesterolemia, Coronary Artery DiseaseHypertension, Diabetes Previous Procedures/Diagnoses Previous PCI, Previous [place] Procedure Narrative The patient was brought electively to the Cardiac Catheterization Laboratory and was prepped and draped in a sterile manner. The Right Groin^ was infiltrated with 1% Lidocaine subcutaneous anesthesia. A PINNACLE 6FR Sheath #[id number] sheath was inserted into the RFA^. Coronary angiography was performed using coronary diagnostic catheters. The right coronary system was accessed and visualized with a JR4 catheter. The left coronary system was accessed and visualized with a JL4 catheter. The left ventricle was accessed and visualized with a PIGTAIL catheter. Closure device was deployed with a Fr MYNXGRIP 6/7F #[id number]. The patient tolerated the procedure well and there were no complications associated with the procedure. There was [facility] [address] [place] [address] INVASIVE PROCEDURE REPORT Name: JAUN SOLOMON Room #: 213-P [facility] IN .R.#: [id number] Admission: 07/20/19 Attend Phys: Rudy Sherman MD Discharge: Date of : 53 Report #: [id number] no hematoma. Intraoperative Conscious Sedation Sedation start time: 14:08 Case end Time: 15:10 Fentanyl 50 mcg Versed 1 mg Fluoro Time: 5.10 minutes Dose: DAP 4921.20 cGycm2 320 mGy Contrast Type and Amount: Visipaque 250 ml Coronary Angiography The patient's coronary anatomy is co- dominant. Diagnostic Cath Left Main This is a large-caliber vessel, with mild disease at the ostium. LAD There is a patent stent in the proximal segment with minimal restenosis. Diagonal 1 There is a stent in the ostial segment with a 70% occlusion. This is unchanged from prior catheterizations. Recommend medical therapy. Circumflex The left circumflex artery is a codominant vessel. There is a stent in the midsegment with severe restenosis of 80%. OM1 This is a moderate-sized caliber vessel, patent with no flow-limiting lesions. OM2 This is a moderate-sized caliber vessel, patent with no flow-limiting lesions. OM3 This is a moderate-sized caliber vessel, patent with no flow-limiting lesions. Right Coronary There are multiple stents in the mid and distal segments of the RCA. There is a total occlusion within the stents. This is unchanged from prior cardiac catheterizations. Left Ventriculography Left Ventriculography was not performed. Ejection Fraction was 35% based off patient's Echocardiogram. An LVEDP was measured and there is no gradient across the outflow tract. Hemodynamics The aortic pressure is 126/68 mmHg with a mean of 105 mmHg. The left ventricular pressure is 129/13 mmHg with a mean of mmHg. The left ventricular end diastolic pressure is 24 mmHg. There was no gradient across the aortic valve upon pullback. PCI Technique Lesion [facility] [address] [place] [address] INVASIVE PROCEDURE REPORT Name: JAUN SOLOMON Room #: 213-P [facility] IN ..#: [id number] Admission: 07/20/19 Attend Phys: Rudy Sherman MD Discharge: Date of : 53 Report #: [id number] Percutaneous coronary intervention was performed on the mid circumflex artery segment. The lesion stenosis prior to intervention was 80% with HUMA 3 flow. A VISTA 6FR XB 3.5 #[id number] Guide Catheter was used to engage the CIRCUMFLEX ostium. A Luge Wire .014 x 182CM #[id number] Interventional Guidewire was used to cross the lesion. BALLOON DILATION A Balloon catheter RESOLUTE JAZ RX 2.5 X 12 #[id number] was inserted and inflated up to 14.00atm for 19seconds. STENT DEPLOYMENT A stent RESOLUTE JAZ RX 2.5 X 12 #[id number] was inserted and inflated up to 10.00atm for 21seconds. POST STENT DEPLOYMENT BALLOON DILATION A Balloon catheter TREK NC RX 2.5 X 8 #[id number] was inserted and inflated up to 16.00atm for 18seconds. Additional Inflation: 18.00atm for 17seconds. Additional Inflation: 18.00atm for 13seconds. Final angiography reveals 5 % stenosis with HUMA 3 flow. Conclusion 1. Successful insertion of a drug-eluting stent into the severe restenotic lesion in the mid segment of the left circumflex artery. 2. There is a patent stent in the proximal segment of the LAD. 3. There is a borderline restenotic lesion at the ostium of the first diagonal artery, which is unchanged from prior catheterizations. Recommend medical therapy. 4. Chronically occluded RCA. 5. At least moderate segmental LV dysfunction. 6. Recommend dual antiplatelet therapy and aggressive risk factor management. <ELECTRONICALLY SIGNED> By: Alexander Poe MD 07/22/19 1620 19 19 Alexander Poe MD /INF
[2019-07-22 17:40] LABS: HEMATOCRIT 35.4 % (42.0-52.0); MCH 31.6 pg (26.0-34.0); MCHC 33.8 g/dL (28.0-37.0); MCV 93.4 fL (80.0-100.0); RBC 3.79 mil/uL (4.50-6.00); RDW 13.9 % (10.5-14.5); WBC 5.6 thou/uL (4.0-11.0)
[2019-07-22 17:53] LABS: CALCIUM 7.9 mg/dL (8.5-10.1); CREATININE 0.9 mg/dL (0.7-1.3); POTASSIUM 4.8 mmol/L (3.5-5.1)
--- NOTE | 2019-07-22 18:05 | NUR ---
PT CARE ASSUMED AT 0700. ASSESSMENTS CHARTED. MEDICATIONS CHARTED. PT TO TIMBER MANAGEMENT ASSISTANT AT 1230 RETURNED AT 1530. HEMOSTASIS AT 1507. BEDREST COMPLETE AT 1807. RT GROIN; MYNX CLOSURE DEVICE.
[2019-07-23] VITALS (14 sets, daily range): BP systolic 76–131; BP diastolic 39–71
[2019-07-23 05:24] LABS: ALBUMIN 2.9 g/dL (3.4-5.0); CALCIUM 8.1 mg/dL (8.5-10.1); POTASSIUM 4.5 mmol/L (3.5-5.1); TOTAL BILIRUBIN 0.4 mg/dL (0.2-1.0); TOTAL PROTEIN 5.5 g/dL (6.4-8.2)
[2019-07-23 05:34] LABS: HEMATOCRIT 34.5 % (42.0-52.0); HEMOGLOBIN 11.5 gm/dL (14.0-18.0); MCH 31.1 pg (26.0-34.0); MCHC 33.5 g/dL (28.0-37.0); MCV 92.9 fL (80.0-100.0); RBC 3.71 mil/uL (4.50-6.00); RDW 13.8 % (10.5-14.5); WBC 5.2 thou/uL (4.0-11.0)
--- NOTE | 2019-07-23 05:42 | NUR ---
ASSUMED CARE OF PATIENT AT 1900. PATIENT COMPLAINED OF BACK PAIN THROUGH THE NIGHT. PATIENT REPORTED ONLY SLIGHT PAIN RELIEF ALTERNATING BETWEEEN OXY/APAP AND FENTANYL PRN ORDERED. NO CHEST PAIN REPORTED BY THE PATIENT. AT INITIAL ASSESSMENT, PATIENT COMPLAINED OF FEELING SHORT OF BREATH. OXYGEN SATURATION WAS AT 94% ON ROOM AIR AND LUNG SOUNDS CLEAR. PATIENT VOICED CONCERN OVER SOA DUE TO HISTORY OF BLOOD CLOTS. NO SOA REPORTED BY PATIENT OR OBSERVED AT SUBSEQUENT ASSESSMENTS.
--- NOTE | 2019-07-23 08:20 | EKG ---
[facility] [place] [address] ELECTROCARDIOGRAM REPORT Name: JAUN SOLOMON Room #: 213-P ADM IN M.R.#: [id number] Admission: 07/20/19 Attend Phys: Rudy Sherman MD Discharge: Date of : 53 Report #: [id number] THIS REPORT FOR: cc: VITA - Lela family physician/PCP VITA - No family physician/PCP Yuval Christina MD [facility] THIS REPORT FOR: //name// [facility] Test Date: 2019-07-22 Test Time: 16:42:00 Pat Name: JAUN SOLOMON Department: Room: 213 P Gender: M Oven Heater Helper: David ROOT : 1955 Requested By: Alexander Poe Order Number: [id number] MD: Yuval Christina Measurements Intervals [place] Rate: 66 P: 42 VT: 185 QRS: 39 QRSD: 123 T: -50 QT: 472 QTc: 495 Interpretive Statements Sinus rhythm Nonspecific intraventricular conduction delay Inferior infarct, age indeterminate Compared to ECG 07/20/2019 15:58:29 No significant changes Electronically Signed On 07-23-2019 8:18:45 CDT by Yuval Christina [email or web address] <ELECTRONICALLY SIGNED> By: Yuval Christina MD, [facility] 07/23/19 0818 1642 1642 Yuval Christina MD, [facility] /EPI
--- NOTE | 2019-07-23 08:32 | EKG ---
[facility] [place] [address] ELECTROCARDIOGRAM REPORT Name: JAUN SOLOMON Room #: 213-P ADM IN M.R.#: [id number] Admission: 07/20/19 Attend Phys: Rudy Sherman MD Discharge: Date of : 53 Report #: [id number] THIS REPORT FOR: cc: VITA - Lela family physician/PCP VITA - No family physician/PCP Yuval Christina MD [facility] THIS REPORT FOR: //name// [facility] Test Date: 2019-07-23 Test Time: 07:11:22 Pat Name: JAUN SOLOMON Department: Room: 213 P Gender: M Medication Coordinator: Uyen STERLING : 1955 Requested By: Alexander Poe Order Number: [id number] MD: Yuval Christina Measurements Intervals [place] Rate: 66 P: 61 AL: 184 QRS: 54 QRSD: 121 T: -42 QT: 491 QTc: 515 Interpretive Statements Sinus rhythm Nonspecific intraventricular conduction delay Inferior infarct, age indeterminate Compared to ECG 07/20/2019 15:58:29 No significant changes Electronically Signed On 07-23-2019 8:30:15 CDT by Yuval Christina [email or web address] <ELECTRONICALLY SIGNED> By: Yuval Christina MD, [facility] 07/23/19 0830 0711 0 Yuval Christina MD, [facility] /EPI
[2019-07-23] MEDS ORDERED: ASPIR 8181 MG PO (08:50)
--- NOTE | 2019-07-23 12:15 | NUR ---
AT APPROXIMATELY 1145 I WAS TRYING TO GIVE DISCHARGE EDUCATION TO THE PT. THE PT SEVERAL TIMES WOULD FALL ASLEEP WHILE I WAS TRYING TO COMMUNICATE WITH HIM. I ASKED THE PT IF HE FELT OKAY, THE PT STATED HE WAS TIERD. BLOOD SUGAR CHECKED. BLOOD SUGAR STABLE. AT MORNING ASSESSMENT AT APPROXIMATELY 0700, PT A&O X4. ASKED PT AT 1145 IF HE KNEW THE MONTH OR WHY HE WAS IN THE HOSPITAL. PT DID NOT ANSWER QUESTIONS CORRECTLY. PT A&O X2. VITAL SIGNS OBTAINED. HYPOTENSIVE. PT O2 SAT LOW. APPLIED OXYGEN. ASSESSED PUPILS, PUPILS CONTRICTED AND SLUGGISH. LOW RESPIRATIONS. NOTICED PT HAD RECEIVED MULTIPLE NARCOTICS OVER NIGHT. CALLED RAPID RESPONSE. SEE RAPID RESPONSE FLOW SHEET.
[2019-07-23 13:35] LABS: HEMATOCRIT 34.3 % (42.0-52.0); HEMOGLOBIN 11.4 gm/dL (14.0-18.0); MCHC 33.2 g/dL (28.0-37.0); MCV 93.2 fL (80.0-100.0); RBC 3.68 mil/uL (4.50-6.00); RDW 13.8 % (10.5-14.5); WBC 4.1 thou/uL (4.0-11.0)
--- NOTE | 2019-07-23 15:05 | NUR ---
Prev plan for discharge home today. Patients dc cancelled had a rapid responce called. Sp with RN and . reports patient has had dizziness for approx a year and multiple falls in home due to dizziness. She is hoping cardiology intervention will help with this. Discussed [facility] HH to assist at home. not sure it will really help they have had in past but he cont to be dizzy and fall. Plan therapy evals for safety at home. Wifes number [phone]
--- NOTE | 2019-07-23 22:10 | NUR ---
AT APPROXIMATELY 2044, I CALLED Arianna MOYER NP REGAURDING PT'S NEW ONSET OF BILATERAL UPPER EXTREMITY TREMORS. PT ALSO DECREASE ORIENTATION TO A&O X2. I ASKED PT IF HE DRINKS ALCOHOL. PT STATED THAT HE DOES DRINK ALCOHOL AND THAT HE DRINKS "A COUPLE A DAY." I ASKED HIM WHAT HE DRINKS. PT STATED HE DID NOT KNOW. INFORMED Arianna MOYER NP. PACKAGING DESIGN ENGINEER ENTERED NEW ORDERS. NEW ORDERS IMPLEMENTED. VITAL SIGNS STABLE.
--- NOTE | 2019-07-23 22:13 | NUR ---
ASSUMMED PT CARE AT APPROXIMATLEY 0700. PT A&O X4 AT BEGINNING OF SHIFT AND DROWSY. AROUND NOON, WHILE GIVING DISCHARGE EDUCATION, THE PT WAS FALLING ASLEEP. (SEE PREVIOUS NOTE). AFTER RAPID RESPONSE, PT BP STABLE. PT BECAME MORE ALERT. DURING AFTERNOON, PT BP STARTED TO DECREASE. INFORMED DR. DE LEON. DR. DE LEON ADDED NEW ORDER. NEW ORDER IMPLEMENTED. PT BP BECAME STABLE. AT APPROXIMATELY 1900, I ASSESSED PT HAD TREMORS/SHAKINESS IN BILAT UPPER EXTREMITIES. (SEE PREVIOUS NOTE). VITAL SIGNS STABLE. SEE PHYSICIAN CONTACT INTERVENTION. GAVE REPORT TO RONAK DAWKINS AT APPROXIMATELY 2100. RONAK DAWKINS STATED UNDERSTANDING AND DENIED HAVING FURTHER QUESTIONS. BLOOD SUGARS STABLE.
[2019-07-24 04:09] VITALS: BP 115/47
--- NOTE | 2019-07-24 04:17 | NUR ---
ASSESSMENT DOCUMENTED.PT BEEN RESTING IN NO ACUTE DISTRESS.A/OX2,VSS,AFEBRILE,LETHARGIC,DROWSY AT THE BEGINNING OF THE SHIFT BUT THE NIGHT GOES DOWN PT MORE AWAKE AND MORE ALERT AND RESPONDS TO COMMANDS APPROPRIATELY.TREMORS TO YI HANDS ALSO GETTING BETTER WELL TWITCHING.INCONTINENT OF URINE.IVF.PT DENIES PAIN.NO OTHER CONCERNS NOTED.WILL CONT TO MONITOR PER POC.
[2019-07-24 07:30] VITALS: BP 119/53
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
--- NOTE | 2019-07-24 08:32 | EKG ---
[facility] [place] [address] ELECTROCARDIOGRAM REPORT Name: JAUN SOLOMON Room #: 213-P ADM IN M.R.#: [id number] Admission: 07/20/19 Attend Phys: Rudy Sherman MD Discharge: Date of : 53 Report #: [id number] THIS REPORT FOR: cc: VITA - No family physician/PCP VITA - No family physician/PCP Yuval Christina MD [facility] THIS REPORT FOR: //name// [facility] Test Date: 2019-07-23 Test Time: 11:58:40 Pat Name: JAUN SOLOMON Department: Room: 213 P Gender: M Bottled Beverage Inspector: Uyen STERLING : 1955 Requested By: Rudy Sherman Order Number: [id number] MD: Yuval Christina Measurements Intervals [place] Rate: 61 P: 30 DC: 183 QRS: 11 QRSD: 114 T: -41 QT: 523 QTc: 527 Interpretive Statements Sinus rhythm Inferior infarct, age indeterminate Prolonged QT interval Compared to ECG 07/23/2019 07:11:22 No significant change was found Electronically Signed On 07-24-2019 8:30:16 CDT by Yuval Christina [email or web address] <ELECTRONICALLY SIGNED> By: Yuval Christina MD, [facility] 07/24/19 0830 1158 1158 Yuval Christina MD, [facility] /EPI
--- NOTE | 2019-07-24 11:12 | NUR ---
NOTED PT'S D/C: COMM W/PHYSICIAN THAT THERAPIES REPORT OF PT VERY WEAK AND LISTING WHEN SITTING UP. PT STATES HE FEELS WEAKER THAN NORMAL BUT THAT HE WANTS TO GO HOME AND SLEEP AND HIS FAMILY WILL CARE FOR HIM. ASKED IF D/C STILL IMMINENT
[2019-07-24 11:14] VITALS: BP 117/62
[2019-07-24 14:52] VITALS: BP 117/62
--- NOTE | 2019-07-24 14:52 | NUR ---
Pt dc'd to home today with is family. Anxious to go home and does not really want any HH. Pt has had hh in the past and is familiar with services. He will f/u with his pcp.
== END 2019-07-24 12:32 | disposition home or self-care (01) | DRG 246 ==
LOC: ER 15:51 → EROBS 18:14 → 2N 18:14
PROVIDERS: Emergency Medicine; Hospitalist; Internal Medicine Cardiovascular Disease; ADMIT Hospitalist; ATTEND Hospitalist
PROC: 027034Z Dilation of Coronary Artery, One Artery with Drug-eluting Intraluminal Device, Percutaneous Approach (ICD-10-PCS; principal; 2019-07-22)
PROC: 4A023N7 Measurement of Cardiac Sampling and Pressure, Left Heart, Percutaneous Approach (ICD-10-PCS; principal; 2019-07-22)
PROC: B211YZZ Fluoroscopy of Multiple Coronary Arteries using Other Contrast (ICD-10-PCS; principal; 2019-07-22)
DX: I25.110 Atherosclerotic heart disease of native coronary artery with unstable angina pectoris (principal); N17.0 Acute kidney failure with tubular necrosis; I48.0 Paroxysmal atrial fibrillation; I95.1 Orthostatic hypotension; I25.5 Ischemic cardiomyopathy; G89.29 Other chronic pain; M54.9 Dorsalgia, unspecified; K21.9 Gastro-esophageal reflux disease without esophagitis; E11.9 Type 2 diabetes mellitus without complications; F41.9 Anxiety disorder, unspecified; F32.9 Major depressive disorder, single episode, unspecified; I11.0 Hypertensive heart disease with heart failure; M19.90 Unspecified osteoarthritis, unspecified site; G47.00 Insomnia, unspecified; I50.9 Heart failure, unspecified; Z87.442 Personal history of urinary calculi; Z86.711 Personal history of pulmonary embolism; I25.2 Old myocardial infarction; Z86.73 Personal history of transient ischemic attack (TIA), and cerebral infarction without residual deficits; Z88.2 Allergy status to sulfonamides; Z88.8 Allergy status to other drugs, medicaments and biological substances; Z95.5 Presence of coronary angioplasty implant and graft; Z89.512 Acquired absence of left leg below knee
CPT/HCPCS: 10081

== ENCOUNTER 2020-01-03 22:23 | Emergency (ER) | payer OTHER, MEDICARE ==
[~2020-01-03] VITALS: Ht 190.5 cm; Wt 104.3 kg
--- NOTE | ~2020-01-03 | EMS ---
[facility] [address] [place] [address] EMS Patient Care Report Name: JAUN SOLOMON Room #: PRE MAmita#: [id number] Admission: Attend Phys: Discharge: Date of : 53 Report #: [id number] THIS REPORT FOR: //name// Report Transmitted: 01/03/2020 21:56 EMS Care Summary [facility] Incident [id number] @ 01/03/2020 21:29 Incident Location [address] [place] [address] Patient JAUN SOLOMON Male, 64 Years 1955 Patient Address [address] [place], [place] [id number] Patient History Diabetes,Hypertension (HTN),Cardiac - Stent,Hypothyroidism, Patient Allergies Sulfa, Patient Medications Plavix, Metoclopramide, Metformin, Trazodone, Xarelto, Midodrine, Synthroid, Lyrica, Chief Complaint Chest pain Disposition Transported No Lights/[place] Dispatch Reason Falls Transported To [facility] Medic 1 dispatched for a mutual aid [facility] 64 [facility] male pt who suffered a fall. Upon arrival crew located pt laying on left lateral side. [facility] [employer] on scene stated that the pt was having chest [facility] [address] [place] [address] EMS Patient Care Report Name: JAUN SOLOMON Room #: PRE DIANA Hugo#: [id number] Admission: Attend Phys: Discharge: Date of : 53 Report #: [id number] pain and fell. Pt stated that he had been having chest pain for approx 45 min. Pt stated that he took 3 nitro approx 20 minutes prior to calling EMS. Pt stated that after the 3rd nitro he became dizzy and fell while walking into his living room. Pt family on scene stated the pt was unconscious for approx 10 seconds after falling. Pt stated that he was now experiencing pain in his left shoulder and neck. C-collar was applied by [facility] [employer] Pt was placed on stretcher by crew and secured using straps. 20 G IV was attempted in pts right forearm but was unsuccessful. 12 lead was preformed and showed no ST segment elevation at this time. Pt stated the pain in his chest was "sharp" and rated pain a 7/10. Pt stated the pain was in the left side of his chest. Pt denied SOA. Pt stated the pain in his shoulder was a "sharp" pain that was worse when his arm moved. Pt rated pain a 5/10. No deformities were noted at this time. Pt denied dizziness. Pt denied SOA. Pt denied nausea and vomiting. Pt was transported to [facility], per pt request, and care was transferred to ED staff. Initial Vitals @22:04P: 75,R: 67,CO: 4,SpO2: 94, @21:54P: 79,R: 19, @22:18P: 75,R: 11,Pain: 7/10,GCS: 15,CO: 6,SpO2: 94, @22:07P: 75,R: 27,BP: 107/70,SpO2: 93, @21:51P: 79,BP: 147/63,Pain: 7/10,SpO2: 95, Assessments @21:42MENTAL:No Abnormalities,SKIN:No Abnormalities,HEENT:Head/Face: No Abnormalities,Eyes: No Abnormalities,Neck/Airway: No Abnormalities,LUNG SOUNDS:General: No Abnormalities,Left Upper: No Abnormalities,Right Upper: No Abnormalities,Left Lower: No Abnormalities,Right Lower: No Abnormalities,ABDOMEN:General: No Abnormalities,Left Upper: No Abnormalities,Right Upper: No Abnormalities,Left Lower: No Abnormalities,Right Lower: No Abnormalities,PELVIS//GI:No Abnormalities,EXTREMITIES:Left Arm: Other,Right Leg: Other,Capillary Refill: Right Upper: < 2 Sec,Right Arm: No Abnormalities,Left Leg: No Abnormalities,PULSE:Radial: 2+ Normal,NEURO:No Abnormalities,@22:00MENTAL:No Abnormalities,SKIN:No Abnormalities,HEENT:Head/Face: No Abnormalities,Eyes: No Abnormalities,Neck/Airway: No Abnormalities,LUNG SOUNDS:General: No Abnormalities,Left Upper: No Abnormalities,Right Upper: No Abnormalities,Left Lower: No Abnormalities,Right Lower: No Abnormalities,ABDOMEN:General: No Abnormalities,Left Upper: No Abnormalities,Right Upper: No Abnormalities,Left Lower: No Abnormalities,Right Lower: No Abnormalities,PELVIS//GI:No Abnormalities,EXTREMITIES:Left Arm: Other,Right Leg: Other,Right Arm: No Abnormalities,Left Leg: No Abnormalities,PULSE:NEURO:No Abnormalities, Impression Injury of Shoulder or Upper Arm [facility] [address] [place] [address] EMS Patient Care Report Name: JAUN SOLOMON Room #: PRE DIANA Hugo#: [id number] Admission: Attend Phys: Discharge: Date of : 53 Report #: [id number] Procedures @22:25Saline Lock cc (20 ga) Site: Forearm-RightResponse: UnchangedFailed@21:42ALS AssessmentResponse: UnchangedSucceeded@PTASpinal Motion RestrictionResponse: UnchangedSucceeded@21:5412-Lead ECGResponse: UnchangedSucceeded Timeline DOWEL PIN WORKER,Spinal Motion Restriction,Response: UnchangedSucceeded, 21:27,Call Received 21:,Psap Call 21:29,Dispatched 21:31,En Route 21:39,On Scene 21:41,At Patient 21:42,ALS Assessment,Response: UnchangedSucceeded, 21:51,BP: 147/63 M,PULSE: 79,RR: R,SPO2: 95 Ox,ETCO2: ,BG: ,PAIN: 7,GCS: , 21:54,12-Lead ECG,Response: UnchangedSucceeded, 21:54,BP: / M,PULSE: 79,RR: 19 R,SPO2: Ox,ETCO2: ,BG: ,PAIN: ,GCS: , 22:04,BP: / M,PULSE: 75,RR: 67 R,SPO2: 94 Ox,ETCO2: ,BG: ,PAIN: ,GCS: , 22:07,BP: 107/70 M,PULSE: 75,RR: 27 R,SPO2: 93 Ox,ETCO2: ,BG: ,PAIN: ,GCS: , 22:18,BP: / M,PULSE: 75,RR: 11 R,SPO2: 94 Ox,ETCO2: ,BG: ,PAIN: 7,GCS: 15, 22:23,Depart Scene 22:25,Saline Lock cc 20 ga Site: Forearm-Right,Response: UnchangedFailed, :27,At Destination 22:31,Call Closed Disclaimer v1.1 Copyright 2020 [employer] This EMS Care Summary contains data elements from the applicable legal record (which may be displayed differently). It is designed to provide pertinent information for the following purposes: continuity of care, clinical quality, and state data reporting. The complete legal record is available to ED staff and administrators of the receiving hospital in [facility]'s Patient Tracker. All data is provided "as is."
[~2020-01-03 22:23] MED LIST changes: +HYDROCODONE-AP1 EA11 PO; +OXYCODONE HCL E15 MG PO; +REGLAN10 MG PO
[2020-01-03 22:47] LABS: HEMATOCRIT 35.3 % (42.0-52.0); HEMOGLOBIN 11.8 gm/dL (14.0-18.0); MCH 28.2 pg (26.0-34.0); MCHC 33.5 g/dL (28.0-37.0); PLATELET COUNT 187 thou/uL (150-400); RDW 15.9 % (10.5-14.5); WBC 5.1 thou/uL (4.0-11.0)
[2020-01-03 22:57] LABS: ANION GAP 8 mmol/L (7-16); BUN 17 mg/dL (7-18); CALCIUM 8.9 mg/dL (8.5-10.1); CHLORIDE 102 mmol/L (98-107); CO2 28 mmol/L (21-32); CREATININE 1.3 mg/dL (0.7-1.3); GLUCOSE 59 mg/dL (74-106); SODIUM 138 mmol/L (136-145)
[2020-01-03] MEDS ORDERED: RANEXA1000 MG PO (22:57)
[2020-01-03] MEDS ORDERED: STOOL SOFTENER100 MG PO (23:02)
[2020-01-03] MEDS ORDERED: BENADRYL25 MG PO (23:02)
[2020-01-03 23:05] LABS: ALBUMIN 3.3 g/dL (3.4-5.0); SGOT 13 U/L (15-37); SGPT 17 U/L (30-65); TOTAL BILIRUBIN 0.3 mg/dL (0.2-1.0); TOTAL PROTEIN 6.4 g/dL (6.4-8.2); TROPONIN-I <0.06 ng/mL (<0.06)
[2020-01-03] MEDS ORDERED: OXYCODONE PO (23:05)
[2020-01-03 23:22] LABS: ABSOLUTE NEUTROPHILS 2.8 thou/uL (1.4-8.2); ATYPICAL LYMPHS 6 %
[2020-01-04 03:02] VITALS: BP 132/59
--- NOTE | 2020-01-05 14:40 | EKG ---
[facility] [place] [address] [place] [address] ELECTROCARDIOGRAM REPORT Name: JAUN SOLOMON [id number] Admission: 01/03/20 Attend Phys: Discharge: 01/04/20 Date of : 53 Report #: [id number] THIS REPORT FOR: cc: Eloy Bustamante MD, Logan F. MD Santiago, Patrick MD [facility] ~ THIS REPORT FOR: //name// [facility] ED Test Date: 2020-01-03 Test Time: 22:27:46 Pat Name: JAUN SOLOMON Department: Room: Gender: Event Planning Manager: [facility] : 1955 Requested By: Nancy Marmolejo Order Number: [id number] MD: Oracio Gant Measurements Intervals [place] Rate: 74 P: 58 WI: 172 QRS: 46 QRSD: 119 T: -79 QT: 446 QTc: 495 Interpretive Statements Sinus rhythm Multiform ventricular premature complexes Nonspecific intraventricular conduction delay Inferior infarct, age indeterminate Lateral leads are also involved Compared to ECG 07/23/2019 11:58:40 Ventricular premature complex(es) now present Intraventricular conduction delay now present Prolonged QT interval no longer present Myocardial infarct finding still present Electronically Signed On 01-05-2020 14:40:16 SUPERVISOR FARM EQUIPMENT MAINTENANCE by Oracio Gant [email or web address] <ELECTRONICALLY SIGNED> By: Oracio Gant MD, FACC 01/05/20 1440 26 26 Oracio Gant MD, [facility] /EPI
== END 2020-01-04 03:03 | disposition short-term general hospital (02) ==
LOC: ER 22:23
PROVIDERS: Student in an Organized Health Care Education/Training Program
DX: S12.200A Unspecified displaced fracture of third cervical vertebra, initial encounter for closed fracture (principal); R07.9 Chest pain, unspecified; M25.512 Pain in left shoulder; I10 Essential (primary) hypertension; I25.2 Old myocardial infarction; K21.9 Gastro-esophageal reflux disease without esophagitis; E11.9 Type 2 diabetes mellitus without complications; Z90.89 Acquired absence of other organs; Z86.73 Personal history of transient ischemic attack (TIA), and cerebral infarction without residual deficits; Z79.01 Long term (current) use of anticoagulants; Z79.4 Long term (current) use of insulin; Z79.82 Long term (current) use of aspirin; Z79.899 Other long term (current) drug therapy; Z88.2 Allergy status to sulfonamides; Z88.8 Allergy status to other drugs, medicaments and biological substances; W18.39XA Other fall on same level, initial encounter; Y93.89 Activity, other specified; Y92.89 Other specified places as the place of occurrence of the external cause; Y99.8 Other external cause status

== ENCOUNTER 2020-04-15 21:58 | Observation (INO) | payer OTHER, MEDICARE ==
[~2020-04-15] VITALS: Ht 7.6 cm; Wt 101.2 kg
[~2020-04-15 21:58] MED LIST changes: +BENADRYL25 MG PO; +OXYCODONE PO; +STOOL SOFTENER100 MG PO
[2020-04-15 22:01] VITALS: BP 152/80
[2020-04-15 22:11] VITALS: BP 158/74
[2020-04-15 22:29] LABS: HEMATOCRIT 37.3 % (42.0-52.0); HEMOGLOBIN 12.3 gm/dL (14.0-18.0); MCH 26.1 pg (26.0-34.0); MCV 79.2 fL (80.0-100.0); RBC 4.71 mil/uL (4.50-6.00); RDW 15.2 % (10.5-14.5); WBC 5.4 thou/uL (4.0-11.0)
[2020-04-15 22:34] LABS: ANION GAP 8 mmol/L (7-16); BUN 17 mg/dL (7-18); CALCIUM 8.9 mg/dL (8.5-10.1); CHLORIDE 97 mmol/L (98-107); CO2 30 mmol/L (21-32); CREATININE 1.5 mg/dL (0.7-1.3); GLUCOSE 220 mg/dL (74-106); POTASSIUM 3.7 mmol/L (3.5-5.1); SODIUM 135 mmol/L (136-145)
[2020-04-15 22:35] LABS: INR 1.1; PROTIME 11.6 Seconds (9.3-11.4)
[2020-04-15 22:43] LABS: ALBUMIN 3.5 g/dL (3.4-5.0); SGOT 18 U/L (15-37); SGPT 30 U/L (30-65); TOTAL BILIRUBIN 0.2 mg/dL (0.2-1.0); TOTAL PROTEIN 6.6 g/dL (6.4-8.2); TROPONIN-I <0.06 ng/mL (<0.06)
[2020-04-16] MEDS ORDERED: CRESTOR20 MG PO (00:21)
[2020-04-16] MEDS ORDERED: PACERONE200 MG PO (00:21)
[2020-04-16] MEDS ORDERED: B12INJ IM (00:22)
[2020-04-16] MEDS ORDERED: HUMALOG100 UNIT/1 SUBQ ×3 (00:23)
[2020-04-16] MEDS ORDERED: REGLAN10 MG PO (00:25)
[2020-04-16] MEDS ORDERED: FINASTERIDE5 MG PO (00:26)
[2020-04-16] MEDS ORDERED: VITAMIN D3125 MC2 PO (00:27)
[2020-04-16 02:19] LABS: URINE BILIRUBIN NEGATIVE (Negative); URINE BLOOD NEGATIVE (Negative); URINE CLARITY CLEAR; URINE COLOR YELLOW; URINE GLUCOSE-RANDOM* TRACE (Negative); URINE KETONES NEGATIVE (Negative); URINE LEUKOCYTES-REFLEX NEGATIVE (Negative); URINE NITRITE-REFLEX NEGATIVE (Negative); URINE PROTEIN (DIPSTICK) NEGATIVE (Negative); URINE SPECIFIC GRAVITY <= 1.005 (1.005-1.035); URINE UROBILINOGEN 0.2 E.U./dl (0.2-1.0)
--- NOTE | 2020-04-16 07:44 | EKG ---
[address] [place] [address] ELECTROCARDIOGRAM REPORT Name: JAUN SOLOMON Room #: 170-12 ADM IN M.R.#: [id number] Admission: 04/16/20 Attend Phys: Gene Urbina, Discharge: Date of : 53 Report #: [id number] [facility] ED Test Date: 2020-04-15 Test Time: 22:02:14 Pat Name: JAUN SOLOMON Department: Room: 170 12 Gender: M Child Care Team Lead: JANEL : 1955 Requested By: Abi Urbina Order Number: [id number] MD: Yuval Christina Measurements Intervals [place] Rate: 58 P: 65 MD: 192 QRS: 74 QRSD: 129 T: -79 QT: 539 QTc: 530 Interpretive Statements Sinus rhythm Nonspecific intraventricular conduction delay Inferior infarct, age indeterminate Nonspecific ST and T wave abnormality Prolonged QT interval Compared to ECG 01/03/2020 22:27:46 Ventricular premature complex(es) no longer present Electronically Signed On 04-16-2020 7:44:26 RUG SETTER AXMINSTER by Yuval Christina [email or web address] <ELECTRONICALLY SIGNED> By: Yuval Christina MD, [facility] 04/16/20 0744 01 01 Yuval Christina MD, [facility] /EPI
[2020-04-16 18:16] VITALS: BP 132/69; BP 136/63
--- NOTE | 2020-04-16 18:18 | NUR ---
ATTEMTPED TO CALL REPORT. NO ANSWER, WILL BRING PT. UP TO FLOOR.
--- NOTE | 2020-04-16 19:00 | NUR ---
Pt. admitted to the unit from the emergency room accompanied by staff. He is alert and oriented. Admission assessment and history is completed. Bed alarm is on.
[2020-04-16 20:06] VITALS: BP 135/66
[2020-04-17 05:17] LABS: HEMATOCRIT 38.1 % (42.0-52.0); HEMOGLOBIN 12.2 gm/dL (14.0-18.0); MCH 25.9 pg (26.0-34.0); MCV 80.9 fL (80.0-100.0); RBC 4.71 mil/uL (4.50-6.00); RDW 15.2 % (10.5-14.5); WBC 8.2 thou/uL (4.0-11.0)
--- NOTE | 2020-04-17 05:17 | NUR ---
Pt. rested quietly at intervals during the night when checked on during frequent rounds. He c/o chronic back pain and was given pain meds (see emar) with some relief noted. Bed alarm is on.
[2020-04-17 05:33] LABS: ALBUMIN 3.6 g/dL (3.4-5.0); CALCIUM 8.9 mg/dL (8.5-10.1); CREATININE 1.4 mg/dL (0.7-1.3); PHOSPHORUS 3.3 mg/dL (2.5-4.9); POTASSIUM 5.2 mmol/L (3.5-5.1)
[2020-04-17 08:39] VITALS: BP 141/65
--- NOTE | 2020-04-17 13:44 | NUR ---
Received awake on bed. Due medications given as prescribed, able to swallow meds w/o difficulty. On room air. Vital signs stable. On telemetry; no complains and signs of chest pain, crushing sensation and heaviness. On carb controlled; no nausea, no vomiting and no abdominal pain. Continent of bowel and bladder, able to use urinal. On blood sugar monitoring, taken and recorded accordingly. Complained of pain, due PRN pain meds given as prescribed. With SL at L FA; on IV steroids. With at bedside, update given. With consult to Neuro surgeon and hospitalist- US called in. Neuro surgery PA- Duyen called back, unable to see pt today- will see patient tomorrow, update given. Dr Urbina called this PM, asked if pt seen by neuro surgeon- informed him re: what Duyen said- to keep patient today; informed him re: pt's admission status which is observation- to change to in patient- orders made. To continue monitoring patient.
[2020-04-17 16:05] VITALS: BP 142/57
[2020-04-17 16:13] VITALS: BP 150/61
--- NOTE | 2020-04-18 04:36 | NUR ---
Pt. rested quietly at intervals during the night when checked on during frequent rounds. He c/o nausea and zofran given (see emar) with relief noted. Pain meds given for c/o back pain (see emar) with some relief noted. Ambulated to the bathroom with one assist. Bed alarm is on.
[2020-04-18 07:12] VITALS: BP 155/81
[2020-04-18] MEDS ORDERED: FLORINEF ACETA0.1 MG PO (10:29)
[2020-04-18] MEDS ORDERED: HYDROCODON-ACE1 EAC7 PO (10:29)
[2020-04-18 10:48] VITALS: BP 155/81
[2020-04-18 11:34] VITALS: BP 155/81
--- NOTE | 2020-04-18 12:59 | NUR ---
ASSUMED CARE OF PATIENT AT SHIFT CHNAGE. ASSESSMENT CHARTED. MEDS ADMINISTERED PER EMAR. BP STABLE WELL OTHER VS. PATIENT A&OX4 MAKES NEEDS KNOWN AND GETS UP INDEPENDENTLY. SPOUSE AT BEDSIDE. VOICED SEVERE PAIN; MEDICATED NEEDED. PROVIDERS SAW PATIENT; DETERMINED MEDICALLY STABLE TO DISCHARGE. PATIENT LEFT W SPOUSE AND NURSING STAFF AT APPROX 1300. VOICED NO NEEDS. IV DC'D, DC INSTRUCTIONS AND MEDICATIONS SENT HOME W PATIENT
== END 2020-04-18 12:45 | disposition home or self-care (01) ==
LOC: ER 21:58 → EROBS 04-16 04:05 → 4W 04-16 19:22
PROVIDERS: Emergency Medicine; Hospitalist; ADMIT Surgery; ATTEND Surgery
DX: M47.812 Spondylosis without myelopathy or radiculopathy, cervical region (principal); I95.9 Hypotension, unspecified; R55 Syncope and collapse; M25.512 Pain in left shoulder; N17.9 Acute kidney failure, unspecified; I10 Essential (primary) hypertension; E11.9 Type 2 diabetes mellitus without complications; E78.5 Hyperlipidemia, unspecified; I25.118 Atherosclerotic heart disease of native coronary artery with other forms of angina pectoris; E03.9 Hypothyroidism, unspecified; I25.2 Old myocardial infarction; F41.9 Anxiety disorder, unspecified; F32.9 Major depressive disorder, single episode, unspecified; G47.00 Insomnia, unspecified; Z79.82 Long term (current) use of aspirin; Z79.899 Other long term (current) drug therapy; Z79.4 Long term (current) use of insulin; W18.30XA Fall on same level, unspecified, initial encounter

== ENCOUNTER 2020-05-01 19:32 | Inpatient (IN) | payer OTHER, MEDICARE ==
[~2020-05-01] VITALS: Ht 190.5 cm; Wt 116.5 kg
[~2020-05-01 19:32] MED LIST changes: +B12INJ IM; +CRESTOR20 MG PO; +FINASTERIDE5 MG PO; +FLORINEF ACETA0.1 MG PO; +PACERONE200 MG PO; +VITAMIN D3125 MC2 PO
[2020-05-01 19:36] VITALS: BP 97/53
[2020-05-01 20:40] LABS: ABSOLUTE NEUTROPHILS 2.4 thou/uL (1.4-8.2); BASOPHILS 3.8 % (0.0-2.0); EOSINOPHILS 3.6 % (0.0-3.0); HEMATOCRIT 37.3 % (42.0-52.0); HEMOGLOBIN 12.3 gm/dL (14.0-18.0); LYMPHOCYTES 27.3 % (24.0-44.0); MCH 26.4 pg (26.0-34.0); MCHC 33.1 g/dL (28.0-37.0); MCV 79.8 fL (80.0-100.0); MONOCYTES 10.2 % (1.0-8.0); PLATELET COUNT 185 thou/uL (150-400); POLYS 55.1 % (36.0-66.0); RBC 4.67 mil/uL (4.50-6.00); RDW 16.4 % (10.5-14.5); WBC 4.3 thou/uL (4.0-11.0)
[2020-05-01 20:47] LABS: CALCIUM 8.8 mg/dL (8.5-10.1); CREATININE 2.2 mg/dL (0.7-1.3); POTASSIUM 3.9 mmol/L (3.5-5.1)
[2020-05-01 20:53] LABS: ALBUMIN 3.6 g/dL (3.4-5.0); TOTAL BILIRUBIN 0.3 mg/dL (0.2-1.0); TOTAL PROTEIN 7.2 g/dL (6.4-8.2)
[2020-05-01] MEDS ORDERED: MIDODRINE HCL 55 M1 PO (21:36)
[2020-05-01] MEDS ORDERED: DESYREL150 MG PO (21:38)
[2020-05-01] MEDS ORDERED: LEVOTHYROXINE150 MC1 PO (21:38)
[2020-05-01] MEDS ORDERED: ASA81BEC PO (21:39)
[2020-05-01] MEDS ORDERED: ROXICODONE15 M1 PO (21:40)
[2020-05-01 23:09] VITALS: BP 131/57
--- NOTE | 2020-05-01 23:45 | NUR ---
PATIENT HAS ATTEMPTED TO STAND,USE URINAL WITH STAFF ASSIST X 3 TRIES. BLADDERSCAN SHOWED 545ML PRESENT. STRAIGHT CATH PERFORMED, 500 ML АЛЕКСАНДР URINE DRAINED. UA SENT TO LAB. LEFT ARM IV INFILTRATED. NEW IV INSERTED RIGHT HAND. PATIENT C/O SEVERE BACK PAIN, HAS NOT EXPERIENCED SATISFACTORY RELIEF. PREVIOUSLY GIVEN X 2 IV DOSES OF FENTANYL. NEW INPATIENT MED ORDERS SHOW PRN HYDROCODONE. PATIENT SAID," YOU NEED TO GET THAT REMOVED FROM MY CHART, IT WONT WORK. ONLY DILAUDID WORKS. AND FENTANYL IS WHAT JACKELINE BEEN ORDERED." ENCOURAGED PATIENT TO TRY PILLS FIRST, THEN FURTHER PAIN REASSESS TO ASSIST PROVIDERS DECISION MAKING PROCESS ON MEDS. PATIENT DECLINED. I DISCUSSED THIS WITH LAISHA SIMONS IN CCU DURING TRANSFER REPORT. SHE WILL NOTIFY GARY MOYER OF ABOVE.
[2020-05-02] VITALS (7 sets, daily range): BP systolic 99–143; BP diastolic 50–70
[2020-05-02] LABS: URINE BILIRUBIN NEGATIVE (Negative); URINE BLOOD NEGATIVE (Negative); URINE CLARITY CLEAR; URINE COLOR YELLOW; URINE GLUCOSE-RANDOM* 1+ (Negative); URINE KETONES NEGATIVE (Negative); URINE LEUKOCYTES-REFLEX NEGATIVE (Negative); URINE NITRITE-REFLEX NEGATIVE (Negative); URINE PROTEIN (DIPSTICK) NEGATIVE (Negative); URINE UROBILINOGEN 0.2 E.U./dl (0.2-1.0)
[2020-05-02 04:04] LABS: CALCIUM 8.1 mg/dL (8.5-10.1); CREATININE 1.9 mg/dL (0.7-1.3); POTASSIUM 3.8 mmol/L (3.5-5.1)
--- NOTE | 2020-05-02 04:24 | NUR ---
ARRIVED TO THE FLOOR BY ED AROUND 00:22; ALERT & ORIENTED AND ABLE TO AMBULATE TO BED WITH ASSIST/ URINAL AT BEDSIDE; ADMISSION COMPLETED; NURSE TO INITIATE POC
[2020-05-02 04:56] LABS: HEMATOCRIT 32.3 % (42.0-52.0); HEMOGLOBIN 10.8 gm/dL (14.0-18.0); MCH 26.8 pg (26.0-34.0); MCHC 33.5 g/dL (28.0-37.0); MCV 80.1 fL (80.0-100.0); RBC 4.03 mil/uL (4.50-6.00); RDW 15.8 % (10.5-14.5); WBC 4.6 thou/uL (4.0-11.0)
--- NOTE | 2020-05-02 10:17 | EKG ---
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 05/02/20 1017 [id number] 39 Yuval Christina MD, FACC /EPI
--- NOTE | 2020-05-02 16:45 | NUR ---
RECEIVED PT'S CARE AROUN 0725; PT. ON BED; ALERT; DURING AM ASSESSMENT PT. AOX4; C/O PAIN OVER BACK; 11/28; ST. RX "DILAUDID" AT HOME; REFUSED PRN PAIN MEDICATION; AM MEDICATIONS GIVEN; BG COVER; WHEN ASKED DILAUDID DOSE ST. ""; EDUCATED DILAUDID DOES NOT HAVE DOUBLE DOSE; ST. HE REFILL MEDICATION "TWO WEEKS AGO"; MOLD F[employer] DOLLS NOTIFIED PT. WILL CALL PHARMACY TO VERIFY MEDICATION AND DOSE; ST. UNDERSTANDING; CALL [facility] PER PHARMACIST PT. REFILL HYDROCONE "TWO WEEKS AGO FROM [facility] FROM DR. GRIDER"; MEDICATION RX "2 TABS Q6H 20 TABS"; PER PHARMACIST PT. REFILL PERCOCET "January FROM [facility]" "HE DOES NOT HAVE REGULAR PAIN MEDICATION"; DR. DE LEON AND YAMILEX NOTIFIED DURING ROUNDING; PT. NOTIFIED ABOUT MEDICATION REFILL AT PHARMACY; PT. ST. GETTING DILAUDID "HERE (ER)"; ST. "HYDROCONO DOES NOT WORK"; WHEN ASKED WHAT MEDICATION TAKES AT HOME FOR PAIN; PT. ST. "I HAVE NOT TAKEN ANYTHING"; M[employer] F[employer] DOLL[employer] ASKED REASON TO THINK HYDROCONE WILLL NOT WORK; ST. "I TOOK IT TWO YEARS AGO AND DID NOT WORK"; EDUCATED ABOUT PAIN MANAGEMENT; PRN PAIN MEDICATIONS; AGREED TO TAKE PRN PAIN MEDICATION; WHEN ASKED IF MEDICATION HELPED ST. PAIN 11/28; "IT DOES NOT HELP"; PT. SLEEP INTERRUPTED DURING ROUNDING AND WHEN ADMINISTERING SCHEDULED MEDICATION; AT THE MOMMENT OF GIVEN ARNIERICA NOTICED BEGINNING OF TREMORS OVER LUE; PT. ABLE TO HOLD CUP WITH LUE AND DRINK WATER STEADY; SR ON THE MONITOR; MONITORING; ASSESSMENT CHARGED; FOLLOWING POC; WILL PASS ON REPORT;
[2020-05-03 04:15] VITALS: BP 98/41
--- NOTE | 2020-05-03 04:18 | NUR ---
ASSUMED CARE AT CHANGE OF SHIFT; AOX4/WEAK; ASSIST WITH WALKER TO TOILET FOR BM; SR ON THE MONITOR; VSS; PER DAY RN REPORT BURNETTE PLACED D/T PATIENT RETAINING URINE ON BLADDER SCAN; ON ASSESSMENT, PATIENT FOUND TO BE SLEEPING/ EASILY AROUSABLE; PATIENT CONTIUES C/O SEVERE CHRONIC BACK PAIN/ REQUESTED ZOFRAN FOR NAUSEA; PRN PAIN/NAUSEA MEDICATIONS ADMINISTERED PER PROVIDER ORDER ON FOLLOW UP, PATIENT FOUND TO BE SLEEPING; PATIENT RECEIVED NS IVF AT 75 ML WITH GOOD URINE OUTPUT; ACHS BG 200 WITH 3 UNITS ADMINISTERED; LT BKA WITH PROSTHETIC NEAR BEDSIDE; WILL CONTINUE TO MONITOR AND FOLLOW POC.
[2020-05-03 07:35] VITALS: BP 99/46
[2020-05-03 11:10] VITALS: BP 112/56
[2020-05-03 12:35] LABS: ABSOLUTE NEUTROPHILS 2.5 thou/uL (1.4-8.2); BASOPHILS 1.5 % (0.0-2.0); EOSINOPHILS 3.1 % (0.0-3.0); HEMATOCRIT 32.2 % (42.0-52.0); HEMOGLOBIN 10.6 gm/dL (14.0-18.0); LYMPHOCYTES 23.8 % (24.0-44.0); MCH 26.5 pg (26.0-34.0); MCHC 32.8 g/dL (28.0-37.0); MCV 80.8 fL (80.0-100.0); MONOCYTES 10.1 % (1.0-8.0); PLATELET COUNT 113 thou/uL (150-400); POLYS 61.5 % (36.0-66.0); RBC 3.98 mil/uL (4.50-6.00); RDW 16.2 % (10.5-14.5); WBC 4.1 thou/uL (4.0-11.0)
[2020-05-03 12:38] LABS: CALCIUM 8.3 mg/dL (8.5-10.1); CREATININE 1.1 mg/dL (0.7-1.3); POTASSIUM 4.2 mmol/L (3.5-5.1)
--- NOTE | 2020-05-03 14:51 | NUR ---
ASSUMED CARE SHIFT CHANGE. ASSESSMENT CHARTED.MEDS GIVEN. VSS. C/O PAIN MANAGED WITH PO PAIN MEDS. PT UP WITH PHYS THERAPY TOLERATING WELL. UOP ADEQUATE. TX TO 4WEST REPORT GIVEN TO MARSHA SIMONS. TELE REMOVED .PT LEFT UNIT WITH ALL BELONGINGS ACCOMPANIED BY SPOUSE.
--- NOTE | 2020-05-03 20:03 | NUR ---
PT ARRIVED TO FLOOR FROM CCU PER BED AT 1435 IN STABLE CONDITION.NO CHANGES IN PREVIOUS ASSESSMENT. BLOOD SUGAR AT DINNER WAS 321. INSULIN GIVEN ORDERED WITH DINNER.PIV IV WAS LEAKING.ATTEMTED TO REPLACED BUT NO LUCK.REPORT OFF TO CASEY RN.SHE WILL REPLACED AFTER REPORT.
[2020-05-03 20:11] VITALS: BP 120/62
--- NOTE | 2020-05-04 02:31 | NUR ---
Pt care assumed with pt in the chair watching tv.Pt is a/o x4.pt is up with x1 assist.Pt has a lt bka with prosthesis in room.Pt is on med/surg tele with nsr.Pt c/o pain and pain managed with norco.pt has a hines catheter in place.will continue to monitor per poc
[2020-05-04 05:02] VITALS: BP 123/71
[2020-05-04 05:44] LABS: HEMATOCRIT 31.1 % (42.0-52.0); HEMOGLOBIN 10.1 gm/dL (14.0-18.0); MCH 26.2 pg (26.0-34.0); MCHC 32.6 g/dL (28.0-37.0); MCV 80.5 fL (80.0-100.0); RBC 3.87 mil/uL (4.50-6.00); RDW 16.1 % (10.5-14.5); WBC 3.3 thou/uL (4.0-11.0)
[2020-05-04 05:52] LABS: CALCIUM 8.5 mg/dL (8.5-10.1); CREATININE 1.1 mg/dL (0.7-1.3); POTASSIUM 4.3 mmol/L (3.5-5.1)
[2020-05-04 07:40] VITALS: BP 128/74
--- NOTE | 2020-05-04 08:35 | NUR ---
Met with patient he admits with dizziness. Patient resides at home with and. Lives in split level home with steps. Patient has left BKA with prothesis. Patient reports he does well with steps. Therapy evaled and reports plan for home. Patient reports he just finished with [facility] and does not feel he needs resumed. PCP Dr Eloy Cummings. Anticipate home today. Casmemgt following
[2020-05-04] MEDS ORDERED: FLOMAX0.4 MG PO (15:13)
[2020-05-04 15:45] VITALS: BP 128/74
--- NOTE | 2020-05-04 16:09 | NUR ---
CARE TEAM INDICATED THAT PT IS MEDICALLY STABLE TO DISHCARGE HOME THIS DAY. PT IS TO DC HOME TO SELF CARE. PT HAS ALL RECOMMENDED DME. NO OTHER CM INTERVENTION INDICATED. CASE CLOSED.
[2020-05-04 16:21] VITALS: BP 153/71
--- NOTE | 2020-05-04 17:20 | NUR ---
Assumed pt care at 7am.Assessment completed,vss.Pt tolerated meds and diet. Received belle from from mri about cancellation of pt mri head ordered by Dr lancaster and was change to outpt. Dr Lancaster called and message left in the office voice mail.Dr Valverde rounded on pt later this afternoon,dc order noted. Dr Lancaster number and st scheduling given to pt since pt stacie't wait for return call from neurology.Dc summary compile and reviewed with pt and .At 1645,pt dc home in [place] with accompanied by donor services team leader.
--- NOTE | 2020-05-13 14:05 | HC ---
[facility] [place] [address] CONSULTATION Name: JAUN SOLOMON Room #: 455-P [facility] IN M.R.#: [id number] Admission: 05/01/20 Attend Phys: Lobo Valverde MD Discharge: 05/04/20 Date of : 53 Report #: [id number] THIS REPORT FOR: cc: Eloy Bustamante MD, Logan F. MD [place], Roxane S. DO DATE OF SERVICE: 05/02/2020 NEUROLOGY CONSULTATION HISTORY OF PRESENT ILLNESS: The patient is a 64-year-old male who was admitted to the hospital for uncontrolled tremors of 3 days. The patient's spouse states that these episodes lasted approximately 30 seconds. There was no loss of consciousness or falling but during these episodes, the patient is unable to speak. The patient tells me that he has had these episodes since his COVID vaccine. In his knowledge, no one in his family has shaking hands. The shaking does not interfere with his ability to write or his ability to feed himself. The patient never mentioned to me that he was unable to speak during these episodes, however, he was able to show me 2 videos on his phone with his arms shaking and his legs shaking. PAST MEDICAL HISTORY: Orthostatic hypotension, GERD, ischemic heart disease, depression, and anxiety, insomnia, pulmonary embolus, and hypertension. PAST SURGICAL HISTORY: Two back surgeries, right shoulder surgery, 2 left shoulder surgeries, sinus surgery, cholecystectomy, tonsillectomy, posterior fossa decompression, carpal tunnel surgery, hemorrhoidectomy, bilateral cubital tunnel surgery, left ckipr-ubb-mkqs amputation. MEDICATIONS: At home, Lyrica 150 mg t.i.d., Plavix 75 mg daily, Protonix 40 mg daily, Glucophage 1000 mg b.i.d., midodrine 10 mg t.i.d., paroxetine 20 mg daily, Colace 100 mg daily, amiodarone 200 mg daily, Crestor 20 mg daily, vitamin B12 1000 mcg daily, Humalog insulin with meals, metoclopramide 10 mg t.i.d., and finasteride 5 mg daily. ALLERGIES: SULFA AND LISINOPRIL. LABORATORY DATA: Hematology: White blood cell count 4.6, hemoglobin 10.8, hematocrit 32.8, MCV 80.1, and platelet count 143,000. Urinalysis negative with the exception of 1+ glucose. Chemistry: Sodium 139, potassium 3.8, chloride 101, carbon dioxide 29, BUN 28, creatinine 1.9, GFR 36, and glucose 236. Hemoglobin A1c is 8.2. Liver functions are unremarkable. B12 is 637, vitamin D. 7, and thyroid 0.039. PHYSICAL EXAMINATION: [facility] [address] [place] [address] CONSULTATION Name: JUANITOJAUN Room #: 455-P [facility] IN M.R.#: [id number] Admission: 05/01/20 Attend Phys: Lobo Valverde MD Discharge: 05/04/20 Date of : 53 Report #: [id number] VITAL SIGNS: Temperature 36.7, pulse rate 80, respiratory rate 18, blood pressure 143/70, bedside pulse oximetry 94% on room air. NEUROLOGIC: Cranial nerves 2-12 are grossly intact. Motor exam demonstrates symmetrical strength in the upper extremities. The patient has bilateral first dorsal interosseous atrophy. The patient has normal strength in the right lower extremity. He is able to lift the leg off the bed. The patient has a left mazek-fny-wgqj amputation. Reflexes are absent. The right plantar response is flexor. Coordination demonstrates no evidence of ilgdax-sj-ldfz, however, the patient did have a slight intention tremor with zydjex-pt-hzwg. The patient showed me a video of jerking, in the video, I could see only the right arm and in the other video the right leg jerking rhythmically. IMPRESSION: I saw no evidence of a significant tremor today. The patient may have mild essential tremor. He had some tremor with vudrrp-ta-ctxp, but does not have dysmetria. I would be cautious about the patient's metoclopramide 10 mg 3 times a day. I do not know how long the patient has been on the medication, but does have a black box warning and it should be used with caution. The patient is also on some medications that can cause tremor this includes paroxetine and even Pregabalin. At this point, I do not recommend any medication for the tremor. I saw no significant tremor today. We will see if his tremor returns, I will ask the neurologist thermostatic controls supervisor tomorrow to reevaluate the patient. <ELECTRONICALLY SIGNED> By: Michelle Shane DO 05/13/20 1405 [id number] 0160 Michelle Shane DO /nt
== END 2020-05-04 16:45 | disposition home or self-care (01) | DRG 683 ==
LOC: ER 19:32 → 2N 21:27 → EROBS 21:27 → 2N 05-02 00:21 → 4W 05-03 14:45
PROVIDERS: Emergency Medicine; Nurse Practitioner Family; ADMIT Hospitalist; ATTEND Hospitalist
DX: N17.0 Acute kidney failure with tubular necrosis (principal); I13.0 Hypertensive heart and chronic kidney disease with heart failure and stage 1 through stage 4 chronic kidney disease, or unspecified chronic kidney disease; I50.9 Heart failure, unspecified; E11.43 Type 2 diabetes mellitus with diabetic autonomic (poly)neuropathy; G89.29 Other chronic pain; M54.9 Dorsalgia, unspecified; K21.9 Gastro-esophageal reflux disease without esophagitis; F41.9 Anxiety disorder, unspecified; M19.90 Unspecified osteoarthritis, unspecified site; F32.9 Major depressive disorder, single episode, unspecified; G47.00 Insomnia, unspecified; E86.0 Dehydration; M48.02 Spinal stenosis, cervical region; I25.9 Chronic ischemic heart disease, unspecified; I25.10 Atherosclerotic heart disease of native coronary artery without angina pectoris; E05.00 Thyrotoxicosis with diffuse goiter without thyrotoxic crisis or storm; R25.1 Tremor, unspecified; Z87.442 Personal history of urinary calculi; Z86.711 Personal history of pulmonary embolism; I25.2 Old myocardial infarction; Z86.73 Personal history of transient ischemic attack (TIA), and cerebral infarction without residual deficits; Z89.512 Acquired absence of left leg below knee; Z88.2 Allergy status to sulfonamides; Z88.8 Allergy status to other drugs, medicaments and biological substances; Z95.5 Presence of coronary angioplasty implant and graft
CPT/HCPCS: 10045; 10081

== ENCOUNTER 2020-06-20 17:21 | Inpatient (IN) | payer OTHER, MEDICARE ==
[~2020-06-20] VITALS: Ht 190.5 cm; Wt 98.9 kg
[~2020-06-20 17:21] MED LIST changes: +ASA81BEC PO; +DESYREL150 MG PO; +LEVOTHYROXINE150 MC1 PO
[2020-06-20 17:22] VITALS: BP 146/63
[2020-06-20 17:52] LABS: ABSOLUTE NEUTROPHILS 3.4 thou/uL (1.4-8.2); BASOPHILS 0.3 % (0.0-2.0); EOSINOPHILS 3.9 % (0.0-3.0); HEMATOCRIT 33.1 % (42.0-52.0); HEMOGLOBIN 10.9 gm/dL (14.0-18.0); LYMPHOCYTES 21.3 % (24.0-44.0); MCH 25.4 pg (26.0-34.0); MCV 76.8 fL (80.0-100.0); MONOCYTES 9.8 % (1.0-8.0); PLATELET COUNT 229 thou/uL (150-400); POLYS 64.7 % (36.0-66.0); RBC 4.31 mil/uL (4.50-6.00); RDW 17.6 % (10.5-14.5); WBC 5.3 thou/uL (4.0-11.0)
[2020-06-20 17:56] LABS: ANION GAP 12 mmol/L (7-16); BUN 20 mg/dL (7-18); CALCIUM 8.3 mg/dL (8.5-10.1); CHLORIDE 101 mmol/L (98-107); CO2 26 mmol/L (21-32); CREATININE 1.4 mg/dL (0.7-1.3); GLUCOSE 312 mg/dL (74-106); POTASSIUM 4.3 mmol/L (3.5-5.1); SODIUM 139 mmol/L (136-145)
[2020-06-20 18:04] LABS: D-DIMER 0.32 ug/mLFEU (0.19-0.50); INR 1.03; PROTIME 11.2 Seconds (10.5-12.1)
[2020-06-20 18:06] LABS: ALBUMIN 3.4 g/dL (3.4-5.0); SGOT 17 U/L (15-37); SGPT 31 U/L (30-65); TOTAL BILIRUBIN 0.3 mg/dL (0.2-1.0); TOTAL PROTEIN 6.4 g/dL (6.4-8.2); TROPONIN-I <0.06 ng/mL (<0.06)
[2020-06-20] MEDS ORDERED: LANTUS SUBQ (18:10)
[2020-06-20] MEDS ORDERED: REGLAN10 MG PO (18:12)
[2020-06-20] MEDS ORDERED: ROXICODONE15 M1 PO (18:14)
[2020-06-20 19:46] VITALS: BP 163/78
[2020-06-20 20:36] VITALS: BP 146/73
[2020-06-20 23:39] VITALS: BP 140/71
[2020-06-21] VITALS (10 sets, daily range): BP systolic 114–157; BP diastolic 60–79
--- NOTE | 2020-06-21 01:40 | NUR ---
PT ADMITTED FROM ER FOR CP, A&OX4, SR ON TELE, STILL C/O CP AND BACK PAIN, MILITARY SOURCE OPERATIONS OFFICER NOTIFIED, FENTANYL GIVE, ADMISSION ASSESSMENT, EDUCATION AND HISTORY COMPLETED, PT DOESN'T WANT HIS BED ALARM ON, EDUCATED ABOUT FALL PREVENTION; STATES UNDERSTANDING, ORIENTED TO ROOM, CALL LIGHT WITHIN REACH; REMAINS NPO, NO NEEDS AT THIS TIME, WILL CONTINUE TO MONITOR AND FOLLOW POC
[2020-06-21 03:58] LABS: ANION GAP 8 mmol/L (7-16); BUN 16 mg/dL (7-18); CALCIUM 8.4 mg/dL (8.5-10.1); CHLORIDE 103 mmol/L (98-107); CHOLESTEROL 147 mg/dL (<200); CO2 28 mmol/L (21-32); CREATININE 1.1 mg/dL (0.7-1.3); GLUCOSE 286 mg/dL (74-106); HDL CHOLESTEROL 49 mg/dL (>40); LDL CHOLESTEROL 78 mg/dL (<100); POTASSIUM 4.5 mmol/L (3.5-5.1); SODIUM 139 mmol/L (136-145); TRIGLYCERIDE 103 mg/dL (<150); VLDL 21 mg/dL (<40)
[2020-06-21 04:16] LABS: SERUM ASSESSMENT Clear
--- NOTE | 2020-06-21 07:07 | EKG ---
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 : 1955 Requested By: Fredy Zavala Order Number: [id number] MD: Oracio Gant Measurements Intervals [place] Rate: 66 P: 48 ND: 183 QRS: 39 QRSD: 125 T: QT: 501 QTc: 525 Interpretive Statements Sinus rhythm Nonspecific intraventricular conduction delay Inferior infarct, old Lateral leads are also involved Compared to ECG 05/01/2020 20:40:55 No significant changes Electronically Signed On 06-21-2020 7:07:13 CDT by Oracio Gant [email or web address] <ELECTRONICALLY SIGNED> By: Oracio Gant MD, [facility] 06/21/20 0707 25 25 Oracio Gant MD, FAC /EPI
--- NOTE | 2020-06-21 09:14 | EKG ---
[place] [address] [address] [facility] [place] [address] ELECTROCARDIOGRAM REPORT Name: JAUN SOLOMON Room #: 207-P ADM IN M.R.#: [id number] Admission: 06/20/20 Attend Phys: Lobo Valverde MD Discharge: Date of : 53 Report #: [id number] [facility] Test Date: 2020-06-21 Test Time: 07:08:46 Pat Name: JAUN SOLOMON Department: Room: 207 P Gender: M Clinic Director: LISA : 1955 Requested By: America Montano Order Number: [id number] MD: Yuval Christina Measurements Intervals Oran Rate: 63 P: 54 GA: 203 QRS: 48 QRSD: 129 T: -15 QT: 528 QTc: 541 Interpretive Statements Sinus rhythm Nonspecific intraventricular conduction delay Inferior infarct, old Compared to ECG 06/20/2020 17:26:10 No significant changes Electronically Signed On 06-21-2020 9:14:49 CDT by Yuval Christina [email or web address] <ELECTRONICALLY SIGNED> By: Yuval Christina MD, [facility] 06/21/20 0914 0708 7 Yuval Christina MD, FACC /EPI
--- NOTE | 2020-06-21 10:59 | NUR ---
WOUND CONSULT; THE RIGHT BKA HAS A FIRMLY ATTACHED SCAB, DRY STABLE WITH NO DRAINAGE OR ERYTHEMA. THE PATIENT DENIES PAIN AND IS RESTING COMFORTABLY IN THE DARK. THE PATIENT STATES HE IS NOT ALLERGIC TO BETADINE. THIS APPEARS TO BE CONSISTANT WITH SOME DEGREE OF PRESSURE. THE ORTHOTIC REP IS COMING TO ASSESS. RECOMMENDATION; PAINT WITH BETADINE, COVER WITH A BORDER FOAM. DISCUSSED WITH RN
--- NOTE | 2020-06-21 11:37 | NUR ---
met with patient who admits with chest pain. Patient resides at home in a split level home. Spouse resides with patient. She plans to retire soon. Patient has BKA with prosethsis. Patient has rec HH in past [facility]. He reports he does not believe he needs at discharge. Patient plans home with no needs. Casemgt following.
--- NOTE | 2020-06-21 11:44 | 2DMMODE ---
[facility] [place] [address] 2 D/M-MODE ECHOCARDIOGRAM Name: JAUN SOLOMON Room #: 207-P ADM IN M.R.#: [id number] Admission: 06/20/20 Attend Phys: Lobo Valverde MD Discharge: Date of : 53 Report #: [id number] THIS REPORT FOR: cc: Eloy Bustamante MD, Logan F. MD Park, Jin S. MD ~ APPROVED REPORT Study performed: 06/21/2020 09:58:00 EXAM: Comprehensive 2D, Doppler, and color-flow Echocardiogram Patient Location: Bedside Room #: 207 Status: routine BSA: 2.32 HR: 58 bpm BP: 144/77 mmHg Rhythm: Bradycardia Other Information Study Quality: Good Indications Chest Pain Hx:Afib, CMP, CAD, Syncope. 2D Dimensions RVDd: 33.10 mm IVSd: 14.88 (7-11mm) LVOT Diam: 22.70 (18-24mm) LVDd: 49.86 mm PWd: 16.20 (7-11mm) Ascending Ao: 33.82 (22-36mm) LVDs: 42.34 (25-40mm) Left Atrium: 50.31 (27-40mm) Aortic Root: 36.65 mm Volumes Left Atrial Volume (Systole) Single Plane 4CH: 65.21 mL Single Plane 2CH: 84.11 mL LA ESV Index: 34.00 mL/m2 Aortic Valve AoV Peak Yusef.: 1.02 m/s AO Peak Gr.: 4.16 mmHg LVOT Max P.65 mmHg LVOT Max V: 0.64 m/s [facility] [address] [place] [address] 2 D/M-MODE ECHOCARDIOGRAM Name: JAUN SOLOMON Room #: 207-P [facility] IN [facility].#: [id number] Admission: 06/20/20 Attend Phys: Lobo Valverde MD Discharge: Date of : 53 Report #: [id number] Vmax: 2.55 cm2 Mitral Valve E/A Ratio: 2.4 MV Decel. Time: 250.74 ms MV E Max Yusef.: 1.05 m/s MV A Yusef.: 0.44 m/s MV PHT: 72.71 ms IVRT: 65.74 ms Pulmonary Valve PV Peak Yusef.: 0.73 m/s PV Peak Gr.: 2.11 mmHg Pulmonary Vein P Vein S: 0.38 m/s P Vein A: 0.30 m/s P Vein D: 0.71 m/s P Vein A Dur.: 148.8 msec P Vein S/D Ratio: 0.54 Tricuspid Valve TR Peak Yusef.: 3.30 m/s RAP Estimate: 5.00 mmHg TR Peak Gr.: 43.59 mmHg PA Pressure: 49.00 mmHg Left Ventricle The left ventricle is normal size. There is hypokinesis of the inferior segment. Mild concentric left ventricular hypertrophy. Left ventricular systolic function is mild to moderately decreased. LVEF is 40-45%. Grade II - pseudonormal filling dynamics. Right Ventricle The right ventricle is normal size. The right ventricular systolic function is normal. Atria Left atrium is dilated. Right atrium is dilated. Aortic Valve The aortic valve is normal in structure. No aortic regurgitation is present. There is no aortic valvular stenosis. Mitral Valve The mitral valve is normal in structure. Mild mitral regurgitation. No evidence of mitral valve stenosis. Tricuspid Valve The tricuspid valve is normal in structure. There is trace tricuspid [facility] [address] [place] [address] 2 D/M-MODE ECHOCARDIOGRAM Name: JAUN SOLOMON Room #: 207-P [facility] IN .R.#: [id number] Admission: 06/20/20 Attend Phys: Lobo Valverde MD Discharge: Date of : 53 Report #: [id number] regurgitation. Estimated PAP 48 mmHg. There is moderate pulmonary hypertension. Pulmonic Valve The pulmonary valve is normal in structure. Trace pulmonic regurgitation. Great Vessels The aortic root is normal in size. The ascending aorta is normal in size. IVC is normal in size and collapses >50% with inspiration. Pericardium There is no pericardial effusion. <Conclusion> The left ventricle is normal size. Mild concentric left ventricular hypertrophy. Left ventricular systolic function is mild to moderately decreased. LVEF is 40-45%. Grade II - pseudonormal filling dynamics. The right ventricle is normal size. Left atrium is dilated. The aortic valve is normal in structure. Mild mitral regurgitation. There is trace tricuspid regurgitation. Estimated PAP 48 mmHg. <ELECTRONICALLY SIGNED> By: Alexander Poe MD 06/21/20 1144 1144 1144 Alexander Poe MD /INF
--- NOTE | 2020-06-21 12:13 | NUR ---
ALERT AND ORIENTED AND VITALS STABLE. MEDICATED FOR PAIN WITH PRN PAIN MEDS. KEPT NPO EXCEPT FOR MEDS. 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
--- NOTE | 2020-06-21 12:18 | NUR ---
Initial high nutrition screening. Admit with chest pain workup. Extensive cardiac hx, DM, CVA, graves disease, BKA, HTN. Wt hx shows stable wts for at least past year around 230lb. BG 185-202, receives ss insulin, glargine and lispro. last A1C 8.2% in 04/2019. NPO at this time. Recommend new A1C level, and diet advance when medically ready to carb control, heart healthy. Otherwise low nutrition risk.
--- NOTE | 2020-06-21 13:45 | CATHLAB ---
[facility] [place] [address] INVASIVE PROCEDURE REPORT Name: JAUN SOLOMON Room #: 207-P ADM IN M.R.#: [id number] Admission: 06/20/20 Attend Phys: Lobo Valverde MD Discharge: Date of : 53 Report #: [id number] THIS REPORT FOR: cc: Eloy Bustamante MD, Logan F. MD Park, Jin S. MD ~ APPROVED REPORT Study performed: 06/21/2020 11:42:22 Patient Details Patient Status: In-Patient Room #: 207 The patient is a 64 year-old male Event Personnel Alexander Poe Virtual Customer Assistant, Sridevi Urbina RN RN, Inez Ford RTR, SENIOR LOAN PROCESSOR Monitor, Jasmine Segura RTR Scrub Procedures Performed Art Access - R femoral artery* Left Heart Cath w/or w/o Coronaries 4941412 [facility] [address] Initial Mod Sed Same Phys/QHP Gr5y 587758 Hemostasis with Manual pressure 50836 Mod Sed Same Phys/QHP Ea 927858 Indication Dyspnea, Unstable angina , Chest pain Risk Factors Peripheral Vascular Disease, Hypercholesterolemia, Coronary Artery DiseaseHypertension, Diabetes Previous Procedures/Diagnoses Previous PCI, Previous MIPrevious Vascular Surgery Procedure Narrative The Right Groin^ was infiltrated with 1% Lidocaine subcutaneous anesthesia. A PINNACLE 4FR Sheath #[id number] sheath was inserted into the RFA^. Coronary angiography was performed using coronary diagnostic catheters. The right coronary system was accessed and visualized with a JR4 catheter. The left coronary system was accessed and visualized with a JL4 catheter. The left ventricle was accessed and visualized with a JR4 catheter. Left ventricular/Aortic Valve gradient assessed via catheter pullback. Hemostasis was obtained with [facility] [place] [place] [address] INVASIVE PROCEDURE REPORT Name: JAUN SOLOMON Room #: 207-P [facility] IN [facility].#: [id number] Admission: 06/20/20 Attend Phys: Lobo Valverde MD Discharge: Date of : 53 Report #: [id number] manual pressure following sheath removal without any complications. The patient tolerated the procedure well and there were no complications associated with the procedure. There was no hematoma. Intraoperative Conscious Sedation Sedation start time: 12:28 Case end Time: 12:59 Fentanyl 50 mcg Versed 0.5 mg Fluoro Time: 2.10 minutes Dose: DAP 9302.95 cGycm2 1383 mGy Contrast Type and Amount: Omnipaque 80 ml Coronary Angiography The patient's coronary anatomy is right dominant. Diagnostic Cath Left Main The left main artery is a large-caliber vessel, patent with no flow-limiting lesions. LAD There is a stent in the proximal segment of the LAD, patent with minimal restenosis. Diagonal 1 There are overlapping stents starting at the ostium and extending out to the mid segment. There is mild restenosis. Circumflex There are stents in the proximal and mid segments, patent with no flow-limiting lesions. OM1 There is a stent in the proximal segment with mild restenosis. OM2 This is a small to moderate-sized caliber vessel, patent with no flow-limiting lesions. Right Coronary There are proximal RCA stents, with a total occlusion. This is unchanged from prior procedures. The distal branches are partially filled via collateral circulation. Ramus This is a moderate-sized caliber vessel, with mild disease in the midsegment. Left Ventriculography Left Ventriculography was not performed. Ejection Fraction was 40-45% based off patient's Echocardiogram. Left ventricular wall motion abnormalities are present. An LVEDP was measured and there is no gradient across the outflow tract. There is hypokinesis of the inferior wall. Hemodynamics The aortic pressure is 163/74 mmHg with a mean of 106 [address]. [address] [facility] [address] [place] [address] INVASIVE PROCEDURE REPORT Name: JAUN SOLOMON Room #: 207-P [facility] IN ..#: [id number] Admission: 06/20/20 Attend Phys: Lobo Valverde MD Discharge: Date of : 53 Report #: [id number] ventricular pressure is 179/19 mmHg with a mean of mmHg. The left ventricular end diastolic pressure is 38 mmHg. Conclusion 1. There are patent stents in the proximal LAD with minimal restenosis. 2. There are patent stents in the first diagonal artery with mild restenosis. 3. There are patent stents in the proximal and mid segments of the left circumflex artery. 4. There are patent stents in the first obtuse marginal artery with mild restenosis. 5. The RCA is chronically occluded, with partial filling of the distal branches via collateral circulation. 6. There is mild to moderate segmental LV dysfunction. 7. Recommend aggressive risk factor management. <ELECTRONICALLY SIGNED> By: Alexander Poe MD 06/21/20 1344 1344 1344 Alexander Poe MD /INF
--- NOTE | 2020-06-21 16:23 | NUR ---
BPCI letter provided to patient, admits from home setting
--- NOTE | 2020-06-21 17:42 | NUR ---
CAME BACK FROM SAFETY REPRESENTATIVE THIS AFTERNOON AFTER HEMOSTASIS PER REPORT (1300) RIGHT GROIN SITE WITH DRESSING C/D/I AND NO HEMATOMA, PULSES INTACT. BEDREST COMPLETED AFTER 3HRS (1600) PER ORDER. USING URINAL W/O PROBLEM. DIET RESUMED AND VITALS REMAINED STABLE. SPOUSE AT THE BEDSIDE MOST OF THE AFTERNOON.
[2020-06-22 01:06] LABS: GLYCOHEMOGLOBIN (HGB A1C) 9.5 % (4.8-5.6)
[2020-06-22 04:00] VITALS: BP 110/59
--- NOTE | 2020-06-22 04:34 | NUR ---
assumed pt care at change of shift, alert and oriented, sr on the monitor, pain medicine givenx1 with relief, assessments as charted, meds given as per apr, s/p debridement and wound vac placement to the sternal wound, wound vac intact, denies needs, vss, remains on abx for wound infection, plan for return for I&D tomorrow, will continue to monitor, will pass on report
[2020-06-22 04:55] LABS: HEMOGLOBIN 10.9 gm/dL (14.0-18.0); MCH 25.1 pg (26.0-34.0); MCV 78.4 fL (80.0-100.0); RBC 4.33 mil/uL (4.50-6.00); RDW 17.2 % (10.5-14.5); WBC 5.4 thou/uL (4.0-11.0)
[2020-06-22 05:25] LABS: ABSOLUTE RETIC COUNT 0.0584 10^6/uL; OBSERVED RETIC COUNT 1.2 % (0.6-2.6)
[2020-06-22 05:36] LABS: % SATURATION 8 % (20-39); IRON 26 ug/dL (65-175); TIBC 324 ug/dL (250-450)
[2020-06-22 05:53] LABS: CALCIUM 8.2 mg/dL (8.5-10.1); POTASSIUM 4.2 mmol/L (3.5-5.1)
--- NOTE | 2020-06-22 07:17 | NUR ---
ASSUMED PT CARE AT NAGE OF SHIFT, ALERT AND ORIENTED, SR/BBB ON THE MONITOR, PAIN MEDSX1, R GROIN SITE CDI, NO HEMATOMA, ASSESSMENTS CHARTED, VSS, NO NEEDS AT THIS TIME, PASSED ON REPORT TO DAY NURSE
[2020-06-22 07:48] VITALS: BP 129/64
[2020-06-22 13:28] VITALS: BP 129/64
--- NOTE | 2020-06-22 15:10 | NUR ---
Received awake on bed. Due medications given as prescribed, able to swallow meds w/o difficulty. On room air. Vital signs stable. On telemetry; no complains and signs of chest pain, crushing sensation and heaviness. Assisted in ADLs. On heart healthy diet- tolerating well; no vomiting and no abdominal pain noted. On blood sugar monitoring, taken and recorded accordingly; with scheduled insulin ordered- given as prescribed. Continent of bowel and bladder- able to use the urinal- output measured and recorded; able to go to the toilet as well with gait belt and standby assist. S/P stent verification yesterday- dressing C/D/I- no profuse bleeding or drainage noted at R groin. With prosthesis- prev L BKA- stump with wound; wound team aware re: this= photo taken yesterday; dressing changed. Complained of nausea, PRN anti emetic given as prescribed. Visited by this AM- update given. Pt seen and examined by Dr Neal- possible discharge today once cleared by cardiology- pt updated- CM informed re: this, for home with home health. Discharge orders, follow up schedule given and instructed; home health contact number given as well- pt acknowledged understanding. Discharge forms signed. IV discontinued. Telemetry stopped, monitor returned. Pt fetched by his ; brought out of the unit via wheelchair with his personal belongings. Patient discharged.
--- NOTE | 2020-06-22 16:32 | NUR ---
patient to dc home today with HH. Sp with farida intake at [facility]. Reports can accept for HH but unable to see until Sunday. Sp with patient who reports he does not believe he needs HH and agreeable to visit on . Faxed referral to [facility] with orders for start of care .
== END 2020-06-22 14:31 | disposition home health service (06) | DRG 286 ==
LOC: ER 17:21 → EROBS 19:24 → 2N 19:24
PROVIDERS: Emergency Medicine; Internal Medicine Cardiovascular Disease; Nurse Practitioner Family; Physician Assistant; ADMIT Hospitalist; ATTEND Hospitalist
DX: I25.110 Atherosclerotic heart disease of native coronary artery with unstable angina pectoris (principal); N17.0 Acute kidney failure with tubular necrosis; T82.855A Stenosis of coronary artery stent, initial encounter; I48.0 Paroxysmal atrial fibrillation; I95.1 Orthostatic hypotension; K21.9 Gastro-esophageal reflux disease without esophagitis; M19.90 Unspecified osteoarthritis, unspecified site; G47.00 Insomnia, unspecified; I50.9 Heart failure, unspecified; F41.9 Anxiety disorder, unspecified; F32.9 Major depressive disorder, single episode, unspecified; G89.4 Chronic pain syndrome; E11.65 Type 2 diabetes mellitus with hyperglycemia; E03.9 Hypothyroidism, unspecified; E11.43 Type 2 diabetes mellitus with diabetic autonomic (poly)neuropathy; I25.5 Ischemic cardiomyopathy; M48.02 Spinal stenosis, cervical region; R53.81 Other malaise; N40.0 Benign prostatic hyperplasia without lower urinary tract symptoms; E53.8 Deficiency of other specified B group vitamins; E55.9 Vitamin D deficiency, unspecified; D50.9 Iron deficiency anemia, unspecified; I11.0 Hypertensive heart disease with heart failure; Z79.891 Long term (current) use of opiate analgesic; Z79.899 Other long term (current) drug therapy; Y84.0 Cardiac catheterization as the cause of abnormal reaction of the patient, or of later complication, without mention of misadventure at the time of the procedure; Z95.5 Presence of coronary angioplasty implant and graft; Z87.442 Personal history of urinary calculi; Z89.512 Acquired absence of left leg below knee; Z86.711 Personal history of pulmonary embolism; Z86.73 Personal history of transient ischemic attack (TIA), and cerebral infarction without residual deficits; I25.2 Old myocardial infarction; Z88.6 Allergy status to analgesic agent; Z88.2 Allergy status to sulfonamides; Z88.8 Allergy status to other drugs, medicaments and biological substances; Y92.89 Other specified places as the place of occurrence of the external cause
CPT/HCPCS: 10081

== ENCOUNTER 2020-11-18 21:08 | Inpatient (IN) | payer OTHER, MEDICARE ==
[~2020-11-18] VITALS: Ht 190.5 cm; Wt 95.3 kg
[2020-11-18 21:30] VITALS: BP 126/58
[2020-11-18 22:17] LABS: ABSOLUTE NEUTROPHILS 2.2 thou/uL (1.4-8.2); BASOPHILS 2.8 % (0.0-2.0); EOSINOPHILS 5.2 % (0.0-3.0); HEMATOCRIT 30.6 % (42.0-52.0); HEMOGLOBIN 9.6 gm/dL (14.0-18.0); LYMPHOCYTES 22.4 % (24.0-44.0); MCH 22.2 pg (26.0-34.0); MCHC 31.3 g/dL (28.0-37.0); MONOCYTES 10.5 % (1.0-8.0); PLATELET COUNT 197 thou/uL (150-400); POLYS 59.1 % (36.0-66.0); RBC 4.32 mil/uL (4.50-6.00); RDW 21.7 % (10.5-14.5); WBC 3.7 thou/uL (4.0-11.0)
[2020-11-18 22:27] LABS: CALCIUM 8.7 mg/dL (8.5-10.1); POTASSIUM 3.7 mmol/L (3.5-5.1)
[2020-11-18 22:37] LABS: ALBUMIN 3.1 g/dL (3.4-5.0); TOTAL BILIRUBIN 0.4 mg/dL (0.2-1.0); TOTAL PROTEIN 6.2 g/dL (6.4-8.2)
[2020-11-19] VITALS (15 sets, daily range): BP systolic 115–154; BP diastolic 55–88
--- NOTE | 2020-11-19 04:34 | NUR ---
This RN admitted patient to room 200 at 0345. Patient stable on nitroglycerin gtt.
[2020-11-19 06:30] LABS: CHOLESTEROL 104 mg/dL (<200); HDL CHOLESTEROL 38 mg/dL (>40); LDL CHOLESTEROL 50 mg/dL (<100); SERUM ASSESSMENT Clear; TC:HDL 2.7 Ratio (Not establshd); TRIGLYCERIDE 80 mg/dL (<150); VLDL 16 mg/dL (<40)
--- NOTE | 2020-11-19 08:09 | EKG ---
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1955 Requested By: Neeraj Alvarenga Order Number: [id number] MD: Oracio Gant Measurements Intervals [place] Rate: 69 P: 59 MS: 176 QRS: 107 QRSD: 171 T: -65 QT: 525 QTc: 563 Interpretive Statements Sinus rhythm Nonspecific intraventricular conduction delay Borderline repol abnormality, diffuse leads Compared to ECG 06/21/2020 07:08:46 Myocardial infarct finding no longer present Electronically Signed On 11-19-2020 8:09:04 CDT by Oracio Gant [email or web address] <ELECTRONICALLY SIGNED> By: Oracio Gant MD, [facility] 11/19/20 08 14 14 Oracio Gant MD, FACC /EPI
--- NOTE | 2020-11-19 09:34 | NUR ---
Assumed care of pt this AM. Pt is oriented x4, sleeping. Pt reports chest pain 5/10- currently on nitro drip, no radiation. Pt reports back pain 8/10, getting PRN fentanyl. Pt reports back pain in chronic. Pt is lt BKA & has prosthesis in room. Pt on 1L NC for comfort. Plan for echo & cath today. Pt has been NPO since last night. Will continue to monitor.
--- NOTE | 2020-11-19 09:55 | 2DMMODE ---
[facility] [place] [address] 2 D/M-MODE ECHOCARDIOGRAM Name: JAUN SOLOMON Room #: 200-I ADM IN M.R.#: [id number] Admission: 11/18/20 Attend Phys: Lobo Valverde MD Discharge: Date of : 53 Report #: [id number] THIS REPORT FOR: cc: Eloy Bustamante MD, Logan F. MD Santiago, Patrick MD [facility] ~ APPROVED REPORT Study performed: 11/19/2020 09:08:00 EXAM: Comprehensive 2D, Doppler, and color-flow Echocardiogram Patient Location: Bedside Room #: 200 Status: routine BSA: 2.30 HR: 63 bpm BP: 131/70 mmHg Rhythm: NSR Other Information Study Quality: Adequate Indications Chest Pain Hx: NM, stents, ISCM, CVA. 2D Dimensions IVSd: 12.38 (7-11mm) LVOT Diam: 21.69 (18-24mm) LVDd: 57.17 mm PWd: 11.99 (7-11mm) Ascending Ao: 35.72 (22-36mm) LVDs: 47.75 (25-40mm) Left Atrium: 45.32 (27-40mm) Aortic Root: 34.93 mm Volumes Left Atrial Volume (Systole) Single Plane 4CH: 75.56 mL Single Plane 2CH: 89.60 mL LA ESV Index: 38.00 mL/m2 Aortic Valve AoV Peak Yusef.: 1.03 m/s AO Peak Gr.: 4.22 mmHg LVOT Max P.04 mmHg LVOT Max V: 0.71 m/s WILFREDO Vmax: 2.57 cm2 [facility] [address] [place] [address] 2 D/M-MODE ECHOCARDIOGRAM Name: JAUN SOLOMON Room #: 200-I ADM IN [facility]#: [id number] Admission: 11/18/20 Attend Phys: Lobo Valverde MD Discharge: Date of : 53 Report #: [id number] Mitral Valve E/A Ratio: 4.1 MV Decel. Time: 170.09 ms MV E Max Yusef.: 1.23 m/s MV A Yusef.: 0.30 m/s MV PHT: 56.25 ms IVRT: 78.43 ms Pulmonary Valve PV Peak Yusef.: 0.73 m/s PV Peak Gr.: 2.14 mmHg Pulmonary Vein P Vein S: 0.46 m/s P Vein D: 0.73 m/s P Vein S/D Ratio: 0.63 Tricuspid Valve TR Peak Yusef.: 3.08 m/s RAP Estimate: 5.00 mmHg TR Peak Gr.: 38.00 mmHg PA Pressure: 43.00 mmHg Left Ventricle Left ventricle is borderline dilated. Mild concentric left ventricular hypertrophy. Left ventricular systolic function is moderately decreased. LVEF is 35%. Severe diastolic dysfunction is present (restrictive filling). Right Ventricle Right ventricle is mildly dilated. Right ventricle is mildly hypokinetic. Atria Mild biatrial enlargement. Aortic Valve The aortic valve is normal in structure; mildly sclerotic. No aortic regurgitation is present. There is no aortic valvular stenosis. Mitral Valve Mitral valve leaflets are mildly thickened. Mild mitral annular calcification. Mild mitral regurgitation. No evidence of mitral valve stenosis. Tricuspid Valve [facility] [address] [place] [address] 2 D/M-MODE ECHOCARDIOGRAM Name: JAUN SOLOMON Room #: 200-I ADM IN ..#: [id number] Admission: 11/18/20 Attend Phys: Lobo Valverde MD Discharge: Date of : 53 Report #: [id number] The tricuspid valve is normal in structure. Mild tricuspid regurgitation. Estimated PAP is 43mmHg. Pulmonic Valve The pulmonary valve is normal in structure. Mild pulmonic regurgitation. Great Vessels The aortic root is normal in size. The ascending aorta is normal in size. IVC is normal in size and collapses >50% with inspiration. Pericardium There is no pericardial effusion. <Conclusion> Left ventricle is borderline dilated with mild concentric hypertrophy Ejection fraction 30-35% Right ventricle mildly dilated/hypokinetic Mild biatrial enlargement Aortic valve mildly sclerotic without stenosis Mild mitral annular calcification Mild mitral valve insufficiency Mild tricuspid valve insufficiency Pulmonary systolic pressure estimated 43 mmHg Normal aortic root size No pericardial effusion <ELECTRONICALLY SIGNED> By: Oracio Gant MD, FACC 11/19/20954 4 4 Oracio Gant MD, FAC /INF
--- NOTE | 2020-11-19 15:41 | CATHLAB ---
[facility] [place] [address] INVASIVE PROCEDURE REPORT Name: JAUN SOLOMON Room #: 200-I ADM IN M.R.#: [id number] Admission: 11/18/20 Attend Phys: Lobo Valverde MD Discharge: Date of : 53 Report #: [id number] THIS REPORT FOR: cc: Eloy Bustamante MD, Logan F. MD Park, Jin S. MD ~ APPROVED REPORT Study performed: 11/19/2020 12:27:09 Patient Details Patient Status: In-Patient Room #: The patient is a 65 year-old male Event Personnel Alexander Poe Building Services Coordinator, Consuelo Palacios RN RN, Cassidy Nunez RTR Kailey Salmeron Alison RT(R)() Monitor Procedures Performed Art Access - R femoral artery* Left Heart Cath w/or w/o Coronaries [id number] [facility] Hemostasis with Manual pressure 22898 Initial Mod Sed Same Phys/QHP Gr5y 049760 Indication Unstable angina , Chest pain Risk Factors Peripheral Vascular Disease, Chronic Lung DiseaseHypercholesterolemiaPhysical Activity, Coronary Artery DiseaseHypertension, Diabetes Previous Procedures/Diagnoses Previous CVAPrevious PCI, Previous PA Procedure Narrative The Right Groin^ was infiltrated with 1% Lidocaine subcutaneous anesthesia. A PINNACLE 4FR Sheath #[id number] sheath was inserted into the RFA 4F^. Coronary angiography was performed using coronary diagnostic catheters. The right coronary system was accessed and visualized with a JR4 catheter. The left coronary system was accessed and visualized with a JL4 catheter. The left ventricle was accessed and visualized with a PIGTAIL catheter. Hemostasis was obtained with manual pressure following sheath removal without any complications. The patient tolerated the procedure well and there were no [facility] [address] [place] [address] INVASIVE PROCEDURE REPORT Name: JAUN SOLOMON Room #: 200-I [facility] IN [facility].#: [id number] Admission: 11/18/20 Attend Phys: Lobo Valverde MD Discharge: Date of : 53 Report #: [id number] complications associated with the procedure. There was no hematoma. Intraoperative Conscious Sedation Fentanyl 50 mcg Versed 1 mg Fluoro Time: 2.60 minutes Dose: DAP 10831.20 cGycm2 Contrast Type and Amount: Omnipaque 60 ml Coronary Angiography The patient's coronary anatomy is right dominant. Diagnostic Cath Left Main The left main artery is a large-caliber vessel, patent with no flow-limiting lesions. LAD There is a patent stent in the proximal LAD segment with mild restenosis. The mid and distal segments are patent with no flow-limiting lesions. Diagonal 1 There is a stent in the proximal segment, patent with mild restenosis. Circumflex The left circumflex artery is a moderate-sized caliber vessel. There are patent stents in the proximal and mid segments with mild restenosis. OM1 This has an early takeoff from the left circumflex artery. There is a mild stenosis of 30% in the midsegment. OM2 There is a stent in the proximal segment with mild restenosis. OM3 This is a small to moderate-sized caliber vessel, with no flow-limiting lesions. Right Coronary The RCA is totally occluded. The distal segments are filled via collaterals circulation. This is unchanged from prior procedures. Left Ventriculography The left ventricle is Dilated in size with Decreased contractility. The left ventricular ejection fraction is estimated to be 30-35%. Hemodynamics The aortic pressure is 143/71 mmHg with a mean of 95 mmHg. The left ventricular pressure is 154/22 mmHg with a mean of mmHg. The left ventricular end diastolic pressure is 35 mmHg. Conclusion 1. There are patent stents in the proximal LAD and the first [facility] [address] [address] INVASIVE PROCEDURE REPORT Name: JAUN SOLOMON Room #: 200-I [facility] IN ..#: [id number] Admission: 11/18/20 Attend Phys: Lobo Valverde MD Discharge: Date of : 53 Report #: [id number] diagonal artery with mild restenosis. 2. There are patent stents in the left circumflex artery and second obtuse marginal artery with mild restenosis. 3. There is mild disease in the first obtuse marginal artery. 4. The RCA is chronically occluded, with filling of the distal branches via collateral circulation. This is unchanged from prior procedures. 5. There is moderately severe cardiomyopathy. 6. Recommend guideline directed medical therapy. <ELECTRONICALLY SIGNED> By: Alexander Poe MD 11/19/20 154 40 40 Alexander Poe MD /INF
[2020-11-20 04:21] LABS: CALCIUM 7.9 mg/dL (8.5-10.1); CREATININE 0.8 mg/dL (0.7-1.3); POTASSIUM 3.4 mmol/L (3.5-5.1)
[2020-11-20 04:27] VITALS: BP 102/57
[2020-11-20 04:35] LABS: HEMATOCRIT 27.9 % (42.0-52.0); MCH 22.9 pg (26.0-34.0); MCHC 32.1 g/dL (28.0-37.0); MCV 71.2 fL (80.0-100.0); RBC 3.92 mil/uL (4.50-6.00); RDW 21.3 % (10.5-14.5); WBC 3.6 thou/uL (4.0-11.0)
--- NOTE | 2020-11-20 04:50 | NUR ---
RECEIVED PATIENT AT 1900H.PATIEN TIS ALERT AND ORINETED X4.ON ROOM AIR BREATHING SPONTANEOUSLY.WITH POST CATH SITE AT RIGHT GROIN COVERED WITH DRESSING C/D/I, NO HEMATOMA FROM THE SITE.NOT IN DISTRESS.WITH CHRONIC BACK PAIN, PRN FENTANYL GIVEN AND TYLENOL.ALL NEEDS ATTENDED.TO CONTINOUSLY MONITOR.
[2020-11-20 06:07] LABS: GLYCOHEMOGLOBIN (HGB A1C) 8.4 % (4.8-5.6)
[2020-11-20 07:25] VITALS: BP 113/64
[2020-11-20 11:14] VITALS: BP 124/92
[2020-11-20 15:12] VITALS: BP 126/80
[2020-11-20] MEDS ORDERED: ACETAMINOPHEN325 M1 PO (17:03)
[2020-11-20] MEDS ORDERED: CARVEDILOL3.125 MG PO (17:03)
[2020-11-20 17:27] VITALS: BP 126/80
[2020-11-20 18:12] VITALS: BP 138/77
--- NOTE | 2020-11-20 18:15 | NUR ---
Pt adequate for discharge, VSS, Gluc controlled , no new concerns on tele, labs WNL, groin site dressing clean, intact , no hematoma. All discharge instructions were given and Pt and demonstrated understanding of the process. Pt was taken by the staff on a WC to his car and stated his satisfaction with the service.
== END 2020-11-20 18:20 | disposition home or self-care (01) | DRG 286 ==
LOC: ER 21:08 → 2N 23:33 → EROBS 23:33 → 2N 11-19 03:47
PROVIDERS: Emergency Medicine; Internal Medicine Cardiovascular Disease; Nurse Practitioner Family; ADMIT Hospitalist; ATTEND Hospitalist
PROC: B2151ZZ Fluoroscopy of Left Heart using Low Osmolar Contrast (ICD-10-PCS; principal; 2020-11-19)
PROC: 4A023N7 Measurement of Cardiac Sampling and Pressure, Left Heart, Percutaneous Approach (ICD-10-PCS; principal; 2020-11-19)
PROC: B2111ZZ Fluoroscopy of Multiple Coronary Arteries using Low Osmolar Contrast (ICD-10-PCS; principal; 2020-11-19)
DX: I25.110 Atherosclerotic heart disease of native coronary artery with unstable angina pectoris (principal); J96.01 Acute respiratory failure with hypoxia; Z20.822 Contact with and (suspected) exposure to COVID-19; I50.9 Heart failure, unspecified; E03.9 Hypothyroidism, unspecified; F41.9 Anxiety disorder, unspecified; F32.9 Major depressive disorder, single episode, unspecified; M19.90 Unspecified osteoarthritis, unspecified site; G47.00 Insomnia, unspecified; G89.4 Chronic pain syndrome; K21.9 Gastro-esophageal reflux disease without esophagitis; I25.5 Ischemic cardiomyopathy; I48.0 Paroxysmal atrial fibrillation; I11.0 Hypertensive heart disease with heart failure; I95.1 Orthostatic hypotension; E11.40 Type 2 diabetes mellitus with diabetic neuropathy, unspecified; N40.0 Benign prostatic hyperplasia without lower urinary tract symptoms; Z86.718 Personal history of other venous thrombosis and embolism; E11.51 Type 2 diabetes mellitus with diabetic peripheral angiopathy without gangrene; Z79.01 Long term (current) use of anticoagulants; Y92.89 Other specified places as the place of occurrence of the external cause; Z86.73 Personal history of transient ischemic attack (TIA), and cerebral infarction without residual deficits; I25.2 Old myocardial infarction; Z95.5 Presence of coronary angioplasty implant and graft; Z87.442 Personal history of urinary calculi; Z86.711 Personal history of pulmonary embolism; Z89.512 Acquired absence of left leg below knee; Z88.6 Allergy status to analgesic agent; Z88.2 Allergy status to sulfonamides; Z79.891 Long term (current) use of opiate analgesic; Z79.899 Other long term (current) drug therapy; Z28.21 Immunization not carried out because of patient refusal; Z88.8 Allergy status to other drugs, medicaments and biological substances; Z82.49 Family history of ischemic heart disease and other diseases of the circulatory system
CPT/HCPCS: 10081

== ENCOUNTER 2020-12-15 11:33 | Emergency (ER) | payer OTHER, MEDICARE ==
[~2020-12-15] VITALS: Ht 190.5 cm; Wt 100.7 kg
[2020-12-15 12:21] LABS: ABSOLUTE NEUTROPHILS 4.3 thou/uL (1.4-8.2); BASOPHILS 3.5 % (0.0-2.0); EOSINOPHILS 7.6 % (0.0-3.0); HEMATOCRIT 33.1 % (42.0-52.0); HEMOGLOBIN 10.6 gm/dL (14.0-18.0); LYMPHOCYTES 7.8 % (24.0-44.0); MCH 23.7 pg (26.0-34.0); MCHC 31.9 g/dL (28.0-37.0); MCV 74.1 fL (80.0-100.0); MONOCYTES 8.4 % (1.0-8.0); PLATELET COUNT 241 thou/uL (150-400); POLYS 72.7 % (36.0-66.0); RBC 4.47 mil/uL (4.50-6.00)
[2020-12-15 12:37] LABS: CALCIUM 8.4 mg/dL (8.5-10.1); POTASSIUM 3.9 mmol/L (3.5-5.1)
[2020-12-15 12:48] LABS: TOTAL BILIRUBIN 0.5 mg/dL (0.2-1.0); TOTAL PROTEIN 6.6 g/dL (6.4-8.2)
[2020-12-15] MEDS ORDERED: XARELTO15 MG PO (15:52)
[2020-12-15 16:03] VITALS: BP 145/53
[2020-12-15 16:11] LABS: ANISOCYTOSIS 3+; BURR CELLS FEW; HYPOCHROMASIA 1+; MICROCYTES 1+; OVALOCYTES FEW
[2020-12-15 16:12] LABS: MACROCYTES FEW; POLYCHROMASIA OCCASIONAL; SCHISTOCYTES OCCASIONAL
[2020-12-15 16:14] LABS: TARGET CELLS OCCASIONAL
--- NOTE | 2020-12-16 07:02 | EKG ---
[place] [address] 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1955 Requested By: Neeraj Alvarenga Order Number: [id number] MD: Oracio Gant Measurements Intervals [place] Rate: 68 P: 66 SD: 184 QRS: 112 QRSD: 172 T: -67 QT: 526 QTc: 560 Interpretive Statements Sinus rhythm Nonspecific intraventricular conduction delay Borderline repolarization abnormality Compared to ECG 11/18/2020 21:15:09 No significant changes Electronically Signed On 12-16-2020 7:02:30 CDT by Oracio Gant [email or web address] <ELECTRONICALLY SIGNED> By: Oracio Gant MD, [facility] 12/16/20 0702 1142 1142 Oracio Gant MD, FACC /EPI
== END 2020-12-15 16:21 | disposition home or self-care (01) ==
LOC: ER 11:33
PROVIDERS: Emergency Medicine
DX: I26.99 Other pulmonary embolism without acute cor pulmonale (principal); R07.89 Other chest pain; I11.0 Hypertensive heart disease with heart failure; I50.89 Other heart failure; E03.9 Hypothyroidism, unspecified; K21.9 Gastro-esophageal reflux disease without esophagitis; E11.9 Type 2 diabetes mellitus without complications; F41.9 Anxiety disorder, unspecified; F32.9 Major depressive disorder, single episode, unspecified; Z98.890 Other specified postprocedural states; Z90.89 Acquired absence of other organs; Z87.442 Personal history of urinary calculi; Z79.891 Long term (current) use of opiate analgesic; Z79.899 Other long term (current) drug therapy; Z79.1 Long term (current) use of non-steroidal anti-inflammatories (NSAID); Z79.4 Long term (current) use of insulin; Z79.82 Long term (current) use of aspirin; Z88.2 Allergy status to sulfonamides; Z88.5 Allergy status to narcotic agent; Z88.8 Allergy status to other drugs, medicaments and biological substances

== ENCOUNTER 2021-02-05 16:00 | Emergency (ER) | payer OTHER, MEDICARE ==
[~2021-02-05] VITALS: Ht 190.5 cm; Wt 100.2 kg
[2021-02-05 17:28] LABS: ABSOLUTE NEUTROPHILS 3.4 thou/uL (1.4-8.2); BASOPHILS 1.9 % (0.0-2.0); EOSINOPHILS 3.8 % (0.0-3.0); HEMATOCRIT 35.8 % (42.0-52.0); HEMOGLOBIN 11.5 gm/dL (14.0-18.0); LYMPHOCYTES 11.2 % (24.0-44.0); MCH 24.9 pg (26.0-34.0); MCHC 32.1 g/dL (28.0-37.0); MCV 77.4 fL (80.0-100.0); MONOCYTES 8.8 % (1.0-8.0); PLATELET COUNT 196 thou/uL (150-400); POLYS 74.3 % (36.0-66.0); RBC 4.62 mil/uL (4.50-6.00); WBC 4.6 thou/uL (4.0-11.0)
[2021-02-05] MEDS ORDERED: METFORMIN HCL500 M3 PO (17:34)
[2021-02-05 17:37] LABS: CALCIUM 8.8 mg/dL (8.5-10.1); CREATININE 1.1 mg/dL (0.7-1.3); POTASSIUM 4.2 mmol/L (3.5-5.1)
[2021-02-05] MEDS ORDERED: ROXICODONE15 MG PO (17:37)
[2021-02-05] MEDS ORDERED: HUMALOG KW100 UNIT/1 SQ (17:38)
[2021-02-05] MEDS ORDERED: MAG-OXIDE400 MG PO (17:38)
[2021-02-05] MEDS ORDERED: POTASSIUM CHLO20 MEQ PO (17:39)
[2021-02-05 17:45] LABS: ALBUMIN 3.4 g/dL (3.4-5.0); TOTAL BILIRUBIN 0.3 mg/dL (0.2-1.0); TOTAL PROTEIN 6.8 g/dL (6.4-8.2)
[2021-02-05 18:22] LABS: URINE BILIRUBIN NEGATIVE (Negative); URINE BLOOD TRACE (Negative); URINE CLARITY CLEAR; URINE COLOR YELLOW; URINE GLUCOSE-RANDOM* NEGATIVE (Negative); URINE KETONES NEGATIVE (Negative); URINE PROTEIN (DIPSTICK) NEGATIVE (Negative); URINE SPECIFIC GRAVITY 1.015 (1.005-1.035); URINE UROBILINOGEN 0.2 E.U./dl (0.2-1.0)
[2021-02-05 18:38] LABS: URINE LEUKOCYTES-REFLEX 3+ (Negative); URINE NITRITE-REFLEX POSITIVE (Negative)
[2021-02-05 18:41] LABS: BACTERIA-REFLEX >30 Many /HPF (None Seen); CASTS None Seen /LPF (None Seen); SQUAMOUS 0-3 Few /LPF (0-3); URINE RBC 1-2 Rare /HPF (NONE SEEN); URINE WBC-REFLEX >25 Many /HPF (0-5)
[2021-02-05 18:42] LABS: CRYSTALS None Seen /LPF (None Seen)
[2021-02-05] MEDS ORDERED: NORCO5 PO (20:23)
[2021-02-05 21:19] VITALS: BP 147/74
--- NOTE | 2021-02-07 07:12 | EKG ---
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 02/07/21 0712 1607 1607 Oracio Gant MD, FACC /EPI
== END 2021-02-05 21:20 | disposition home or self-care (01) ==
LOC: ER 16:00
PROVIDERS: Emergency Medicine
DX: R07.89 Other chest pain (principal); R51.9 Headache, unspecified; E03.9 Hypothyroidism, unspecified; K21.9 Gastro-esophageal reflux disease without esophagitis; F41.9 Anxiety disorder, unspecified; F32.9 Major depressive disorder, single episode, unspecified; I10 Essential (primary) hypertension; Z90.89 Acquired absence of other organs; Z79.899 Other long term (current) drug therapy; Z88.2 Allergy status to sulfonamides; Z88.5 Allergy status to narcotic agent; W19.XXXA Unspecified fall, initial encounter; Y93.89 Activity, other specified; Y92.89 Other specified places as the place of occurrence of the external cause; Y99.8 Other external cause status

== ENCOUNTER 2021-04-12 19:38 | Inpatient (IN) | payer OTHER, MEDICARE ==
[~2021-04-12] VITALS: Ht 182.9 cm; Wt 101.2 kg
[~2021-04-12 19:38] MED LIST changes: +HUMALOG KW100 UNIT/1 SQ; +MAG-OXIDE400 MG PO; +METFORMIN HCL500 M3 PO; +NORCO5 PO; +POTASSIUM CHLO20 MEQ PO; +ROXICODONE15 MG PO
[2021-04-12 19:40] VITALS: BP 137/67
[2021-04-12 20:23] LABS: ABSOLUTE NEUTROPHILS 3.1 thou/uL (1.4-8.2); EOSINOPHILS 4.7 % (0.0-3.0); HEMATOCRIT 33.1 % (42.0-52.0); HEMOGLOBIN 10.6 gm/dL (14.0-18.0); LYMPHOCYTES 15.6 % (24.0-44.0); MCH 23.6 pg (26.0-34.0); MCHC 31.9 g/dL (28.0-37.0); MONOCYTES 9.1 % (1.0-8.0); PLATELET COUNT 193 thou/uL (150-400); POLYS 68.6 % (36.0-66.0); RBC 4.47 mil/uL (4.50-6.00); RDW 18.6 % (10.5-14.5); WBC 4.5 thou/uL (4.0-11.0)
[2021-04-12 20:56] LABS: POTASSIUM 3.8 mmol/L (3.5-5.1)
[2021-04-12 21:08] LABS: ALBUMIN 3.4 g/dL (3.4-5.0); TOTAL BILIRUBIN 0.4 mg/dL (0.2-1.0); TOTAL PROTEIN 6.8 g/dL (6.4-8.2)
[2021-04-13] VITALS (8 sets, daily range): BP systolic 124–159; BP diastolic 66–92
[2021-04-13 00:28] LABS: ANISOCYTOSIS 2+; HYPOCHROMASIA 1+; MICROCYTES 1+
[2021-04-13 04:30] LABS: CALCIUM 8.7 mg/dL (8.5-10.1); CREATININE 0.9 mg/dL (0.7-1.3); POTASSIUM 3.8 mmol/L (3.5-5.1)
--- NOTE | 2021-04-13 07:01 | NUR ---
PATIENT CARES ASSUMED AFTER TRANSFER FROM ED. PATIENT WAS KEPT ON BED REST. PATIENT TO TRACK COACH IN THE MORNING. PATIENT WAS NPO AFTER MIDNIGHT. ROUNDS DONE. THE BED IN A LOW AND LOCKED POSITION
--- NOTE | 2021-04-13 07:03 | EKG ---
[place] [address] [facility] [place] [address] ELECTROCARDIOGRAM REPORT Name: JAUN SOLOMON Room #: 212-P ADM IN M.R.#: [id number] Admission: 04/12/21 Attend Phys: Calvin Rosenbaum DO Discharge: Date of : 53 Report #: [id number] 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1955 Requested By: Jairon Bull Order Number: [id number] MD: Oracio Gant Measurements Intervals [place] Rate: 63 P: 21 [place]: 213 QRS: -47 QRSD: 177 T: 103 QT: 542 QTc: 555 Interpretive Statements Sinus rhythm Borderline prolonged VA interval RBBB Borderline abnrm T, anterolateral leads Compared to ECG 02/05/2021 16:07:22 ST (T wave) deviation no longer present Electronically Signed On 04-13-2021 7:02:58 HEEL DIPPER by Oracio Gant [email or web address] <ELECTRONICALLY SIGNED> By: Oracio Gant MD, [facility] 04/13/21701 [birth year] 53 Oracio Gant MD, FAC /EPI
[2021-04-13 10:48] LABS: % SATURATION 8 % (20-39); IRON 25 ug/dL (65-175); TIBC 297 ug/dL (250-450)
--- NOTE | 2021-04-13 14:55 | 2DMMODE ---
[facility] [place] [address] 2 D/M-MODE ECHOCARDIOGRAM Name: JAUN SOLOMON Room #: 212-P ADM IN M.R.#: [id number] Admission: 04/12/21 Attend Phys: Calvin Rosenbaum DO Discharge: Date of : 53 Report #: [id number] THIS REPORT FOR: cc: Eloy Bustamante MD, Logan F. MD Park, Jin S. MD ~ ADDENDUM APPROVED REPORT Study performed: 04/13/2021 10:56:47 EXAM: Comprehensive 2D, Doppler, and color-flow Echocardiogram Patient Location: Bedside Room #: 212 Status: routine BSA: 2.23 HR: 63 bpm BP: 150/80 mmHg Other Information Study Quality: Adequate Indications Diabetes Atrial Fibrillation CAD Cardiomyopathy Chest Pain 2D Dimensions RVDd: 45.10 mm IVSd: 17.69 (7-11mm) LVOT Diam: 18.82 (18-24mm) LVDd: 53.19 mm PWd: 15.87 (7-11mm) Ascending Ao: 33.09 (22-36mm) LVDs: 43.51 (25-40mm) Left Atrium: 45.37 (27-40mm) Aortic Root: 36.19 mm IVC: 25.00 mm Volumes Left Atrial Volume (Systole) Single Plane 4CH: 71.80 mL Single Plane 2CH: 91.86 mL LA ESV Index: 40.00 mL/m2 Aortic Valve AoV Peak Yusef.: 1.07 m/s [facility] [address] [address] 2 D/M-MODE ECHOCARDIOGRAM Name: JUANITOJAUN RUBEN Room #: 212-P ADM IN M.R.#: [id number] Admission: 04/12/21 Attend Phys: Calvin Rosenbaum DO Discharge: Date of : 53 Report #: [id number] AO Peak Gr.: 4.54 mmHg LVOT Max P.59 mmHg LVOT Max V: 0.63 m/s WILFREDO Vmax: 1.65 cm2 Mitral Valve E/A Ratio: 3.0 MV Decel. Time: 183.87 ms MV E Max Yusef.: 1.08 m/s MV A Yusef.: 0.36 m/s MV PHT: 53.32 ms IVRT: 83.04 ms Pulmonary Valve PV Peak Yusef.: 0.68 m/s PV Peak Gr.: 1.86 mmHg Pulmonary Vein P Vein S: 0.32 m/s P Vein A: 0.16 m/s P Vein D: 0.85 m/s P Vein A Dur.: 120.0 msec P Vein S/D Ratio: 0.38 Tricuspid Valve TR Peak Yusef.: 2.66 m/s TR Peak Gr.: 28.34 mmHg PA Pressure: 38.00 mmHg Left Ventricle The left ventricle is normal size. Hypokinetic inferior wall. Moderate concentric left ventricular hypertrophy. Left ventricular systolic function is moderate to severely decreased. LVEF is 35%. Grade IV - fixed restrictive diastolic dysfunction. Right Ventricle Right ventricle is at the upper limits of normal. Right ventricular systolic function is grossly normal. Atria Left atrium is dilated. Right atrium is dilated. Aortic Valve The aortic valve is normal in structure. The Aortic valve is sclerotic. No aortic regurgitation is present. There is no aortic valvular stenosis. Mitral Valve The mitral valve is normal in structure. Mild to moderate mitral regurgitation. No evidence of mitral valve stenosis. [facility] [address] [place] [address] 2 D/M-MODE ECHOCARDIOGRAM Name: JAUN SOLOMON Room #: 212-P [facility] IN M.R.#: [id number] Admission: 04/12/21 Attend Phys: Calvin Rosenbaum DO Discharge: Date of : 53 Report #: [id number] Tricuspid Valve The tricuspid valve is normal in structure. There is mild tricuspid regurgitation. Estimated PAP 42 mmHg. Pulmonic Valve The pulmonary valve is normal in structure. Trace pulmonic regurgitation. Great Vessels The aortic root is normal in size. IVC is dilated and collapses <50% with inspiration. Pericardium There is no pericardial effusion. <Conclusion> The left ventricle is normal size. Moderate concentric left ventricular hypertrophy. Left ventricular systolic function is moderate to severely decreased. Grade IV - fixed restrictive diastolic dysfunction. Right ventricle is at the upper limits of normal. Left atrium is dilated. Right atrium is dilated. The aortic valve is normal in structure. Mild to moderate mitral regurgitation. There is mild tricuspid regurgitation. Estimated PAP 42 mmHg. <ELECTRONICALLY SIGNED> By: Alexander Poe MD 04/13/21 1454 [id number] [id number] Alexander Poe MD /INF
--- NOTE | 2021-04-13 15:03 | NUR ---
PT ADMITTED RELATED TO CHEST PAIN DOWN LEFT ARM DIZZZINESS. CM REVIEWED CHART AND SPOKE WITH CARE TEAM. CM MET WITH PT AT BEDSIDE THIS DAY. PT APPEARED TO BE A&O X4. CM ROLE INTRODUCED. PT INDICATED THAT HE RESIDES IN A TRI LEVEL HOUSE WITH HIS WITH 7 STEPS TO ENTER AND 7 MORE INSIDE, 14 IN TOTAL. PT INDICATED THAT HE HAD USED A 4WW WITH BREAKS TO ASSIST WITH [employer]OBILITY [employer]ST[employer]. PT HAS PROSTHESIS RELATED TO L BKA. PT INDICATED HE HAD BEEN ON SERVICE WITH HH [employer] BUT HE COULDN'T RECALL PROVIDER. PT INDICTED HE PLANS TO RETURN HOME WITH RESUMPTION OF HH SERVICES ONCE MEDICALLY STABLE. CM REQUESTED AND RECIEVED PERMISSION TO CALL PT'S SPOUSE TO INTRODUCE CM AND ASK ABOUT HH PROVIDER. CM CALLED AND SPOKE WITH SPOUSE ASHLEY . SHE CONFIMRED THE ABOVE AND INDICATED THAT PT IS ON SERVICE WITH [facility]. CM NOTIFIED [facility] LIA[facility] SHE WAS AWARE OF PT'S ADMISSION AND WILL FOLLOW. IT LOOKS THOUGH PT IS TO HAVE EGD WITH [facility] SUNDAY OR SUNDAY. CM FOLLOWING REGARDING DC PLANNING NEEDS.
--- NOTE | 2021-04-13 18:27 | NUR ---
Patient is alert and oriented x 4, pain med given prn, call light within reach, will continous monitoring.
[2021-04-14 05:08] VITALS: BP 143/75
[2021-04-14 07:33] VITALS: BP 153/90
[2021-04-14 11:23] VITALS: BP 147/86
--- NOTE | 2021-04-14 12:12 | NUR ---
CARE TEAM INDICATED THAT PT IS MEDICALLY STABLE TO DC HOME THIS DAY. CM MET WITH PT AND HE IS AWARE AND AGREEABLE. MAINOR LIAISON SENT ORDERS OVER TO OFFICE FOR THEM TO RESUME SERVICES WITH PT UPON DC. PT'S SPOUSE WAS PULLING THE CARE AROUND DURING TIME OF CM VISITING. PT HAS ALL NEEDED DME. NO OTHER CM INTERVENTION INDICATED. CASE CLOSED.
== END 2021-04-14 11:47 | disposition home health service (06) | DRG 392 ==
LOC: ER 19:38 → 2N 21:20 → EROBS 21:20 → 2N 04-13 00:14
PROVIDERS: Emergency Medicine; Nurse Practitioner; Nurse Practitioner Family; ADMIT Pediatrics; ATTEND Pediatrics
DX: K22.4 Dyskinesia of esophagus (principal); I25.10 Atherosclerotic heart disease of native coronary artery without angina pectoris; I48.0 Paroxysmal atrial fibrillation; I50.9 Heart failure, unspecified; Z20.822 Contact with and (suspected) exposure to COVID-19; E05.00 Thyrotoxicosis with diffuse goiter without thyrotoxic crisis or storm; I11.0 Hypertensive heart disease with heart failure; M54.17 Radiculopathy, lumbosacral region; G47.00 Insomnia, unspecified; M19.90 Unspecified osteoarthritis, unspecified site; F32.A Depression, unspecified; F41.9 Anxiety disorder, unspecified; M48.02 Spinal stenosis, cervical region; G89.4 Chronic pain syndrome; K21.9 Gastro-esophageal reflux disease without esophagitis; R13.10 Dysphagia, unspecified; E11.40 Type 2 diabetes mellitus with diabetic neuropathy, unspecified; E11.43 Type 2 diabetes mellitus with diabetic autonomic (poly)neuropathy; E78.5 Hyperlipidemia, unspecified; I95.1 Orthostatic hypotension; I25.5 Ischemic cardiomyopathy; K31.84 Gastroparesis; E03.9 Hypothyroidism, unspecified; I25.2 Old myocardial infarction; Z95.5 Presence of coronary angioplasty implant and graft; Z86.711 Personal history of pulmonary embolism; Z89.512 Acquired absence of left leg below knee; Z86.73 Personal history of transient ischemic attack (TIA), and cerebral infarction without residual deficits; Z87.442 Personal history of urinary calculi; Z79.899 Other long term (current) drug therapy; Z98.1 Arthrodesis status; Z79.01 Long term (current) use of anticoagulants; Z79.02 Long term (current) use of antithrombotics/antiplatelets; Z79.4 Long term (current) use of insulin; Z79.82 Long term (current) use of aspirin; Z88.5 Allergy status to narcotic agent; Z88.2 Allergy status to sulfonamides; Z88.8 Allergy status to other drugs, medicaments and biological substances; Z86.718 Personal history of other venous thrombosis and embolism; Z80.9 Family history of malignant neoplasm, unspecified; Z82.49 Family history of ischemic heart disease and other diseases of the circulatory system
CPT/HCPCS: 10081